=== PATIENT | female | born 1980 | race Caucasian/White ===

== ENCOUNTER 2016-07-01 16:08 | Emergency (ER) | payer OTHER ==
[~2016-07-01 16:08] MED LIST: AMIT75TA PO; ATIV1TAB2 OR; EFFE150C OR; LEVO88TA3 PO; OMEP40CA2 PO; RISP2TAB30 PO; SERO400T OR; SYNT50TA OR; VALI10TA PO; WELLTAB38 PO; ZIPR20CA13 PO; ZIPR80CAP OR
[2016-07-01 16:56] LABS: MEAN CORPUSCULAR HEMOGLOBIN 32.5 pg (27.0-33.0); MEAN CORPUSCULAR HGB CONC 35.7 g/dl (32.0-36.5); MEAN CORPUSCULAR VOLUME 91.1 fl (80.0-96.0); RED CELL DISTRIBUTION WIDTH 12.2 % (11.5-14.5); WHITE BLOOD COUNT 7.5 K/mm3 (4.0-10.0)
[2016-07-01 17:22] LABS: AMPHETAMINES LEVEL URINE NEGATIVE (NEGATIVE); BENZODIAZEPINES URINE NEGATIVE (NEGATIVE); COCAINE METABOLITE URINE NEGATIVE (NEGATIVE); CONTROL LINE INT CTR LINE PRESENT; METHADONE URINE NEGATIVE (NEGATIVE); OPIATES URINE NEGATIVE (NEGATIVE); TRICYCLIC ANTIDEPRESS URINE NEGATIVE (NEGATIVE)
[2016-07-01 17:29] LABS: ALBUMIN 4.3 GM/DL (3.2-5.2); ALBUMIN/GLOBULIN RATIO 1.48 (1.00-1.93); ALKALINE PHOSPHATASE 79 U/L (45-117); ALT/SGPT 27 U/L (12-78); ANION GAP 8 MEQ/L (8-16); AST/SGOT 14 U/L (15-37); BILIRUBIN,DIRECT 0.2 MG/DL (0.0-0.2); BILIRUBIN,TOTAL 0.5 MG/DL (0.2-1.0); BLOOD UREA NITROGEN 19 MG/DL (7-18); CALCIUM LEVEL 9.3 MG/DL (8.5-10.1); CARBON DIOXIDE LEVEL 30 MEQ/L (21-32); CHLORIDE LEVEL 106 MEQ/L (98-107); CREATININE FOR GFR 0.85 MG/DL (0.55-1.02); GLOMERULAR FILTRATION RATE > 60.0 (>60); GLUCOSE, FASTING 86 MG/DL (70-105); POTASSIUM SERUM 4.3 MEQ/L (3.5-5.1); SODIUM LEVEL 144 MEQ/L (136-145); TOTAL PROTEIN 7.2 GM/DL (6.4-8.2)
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
--- NOTE | 2016-07-01 18:46 | EDDOCDS ---
Physician Documentation [facility] Name: Lisa Sharp Age: 35 yrs Sex: Female : 1980 Arrival Date: 07/01/2016 Time: 16:08 Bed [facility] Private MD: Disposition: 07/01/16 18:24 Discharged to Home/Self Care. Impression: Bipolar disorder, current episode depressed, mild. - Condition is Stable. - Discharge Instructions: Bipolar Disorder. - Medication Reconciliation, Local Pharmacy Hours form. - Follow up: Private Physician; When: Call to arrange an appointment; Reason: Continuance of care. - Problem is new. - Symptoms have improved. Historical: - Allergies: no known allergies; - Home Meds: 1. Latuda 60 mg oral tab 1 tab once daily - PMHx: Bipolar disorder; - PSHx: Cholecystectomy; - Social history: Smoking status: Patient states was never smoker of tobacco. No barriers to communication noted, The patient speaks fluent Amharic. - Family history: No immediate family members are acutely ill. - : The pt / caregiver states he / she is not on anticoagulants. Home medication list is obtained from the patient. - Exposure Risk Screening:: None identified. PRIMARY CARE COORDINATOR: 07/01 16:29 LMP N/A - Irregular menses mb9 Vital Signs: 16:29 BP 119 / 69; Pulse 65; Resp 17; Temp 97.7; Pulse Ox 100% ; Weight 72.57 kg / 159.99 mb9 lbs; Height 5 ft. 5 in. (165.10 cm); 18:42 BP 120 / 69; Pulse 81; Resp 17; Temp 98.2; Pulse Ox 100% ; mb9 16:29 Body Mass Index 26.63 (72.57 kg, 165.10 cm) mb9 MDM: 16:14 Consult PFS/PSA/Product Development Consultant ordered. fg 16:14 Consult PFS/PSA/Product Development Consultant: Patient's case requires discussion with on-call fg Psychiatrist ordered. 16:14 PSA/PFS to call Nursing Behavioral Health Professional, to enter patient data on [place] Safe [place] if patient fg involuntarily admitted or transferred for SI or HI ordered. 16:14 Confirm accurate psychiatric medication list and times of last dosage ordered. fg 16:14 Detain Pt Until Medically/PFS Cleared ordered. fg 16:15 Acetaminophen Level Ordered. EDMS 16:15 Basic Metabolic Profile Ordered. EDMS 16:15 Complete Blood Count Ordered. EDMS 16:15 Drug Eval Toxicology ED Only Ordered. EDMS 16:15 Ethyl Alcohol (ethanol) Ordered. EDMS 16:15 Liver Profile Ordered. EDMS 16:15 Salicylate Level Ordered. EDMS 16:15 Thyroid Stimulating Hormone Ordered. EDMS 16:43 REGULAR DIET PLASTIC RAMIREZ+DIET ordered. EDMS 18:45 Financial registration complete. zo Signatures: Dispatcher [employer] EDMS Brian Beltran MichaelRN RN mb9 Fatuma Saucedo MD MD fg MTDD
[2016-07-02] MEDS ORDERED: LATU1TAB PO (14:48)
[2016-07-02] MEDS ORDERED: OXCA150T PO (14:48)
--- NOTE | 2016-07-03 19:46 | EDDOCDS ---
Physician Documentation [facility] Name: Lisa Sharp Age: 35 yrs Sex: Female : 1980 Arrival Date: 07/01/2016 Time: 16:08 Bed [facility] Private MD: Disposition: 07/01/16 18:24 Discharged to Home/Self Care. Impression: Bipolar disorder, current episode depressed, mild. - Condition is Stable. - Discharge Instructions: Bipolar Disorder. - Medication Reconciliation, Local Pharmacy Hours form. - Follow up: Private Physician; When: Call to arrange an appointment; Reason: Continuance of care. - Problem is new. - Symptoms have improved. Historical: - Allergies: no known allergies; - Home Meds: 1. Latuda 60 mg oral tab 1 tab once daily - PMHx: Bipolar disorder; - PSHx: Cholecystectomy; - Social history: Smoking status: Patient states was never smoker of tobacco. No barriers to communication noted, The patient speaks fluent Japanese. - Family history: No immediate family members are acutely ill. - : The pt / caregiver states he / she is not on anticoagulants. Home medication list is obtained from the patient. - Exposure Risk Screening:: None identified. CLOTH CLASSER: 07/01 16:29 LMP N/A - Irregular menses mb9 Vital Signs: 16:29 BP 119 / 69; Pulse 65; Resp 17; Temp 97.7; Pulse Ox 100% ; Weight 72.57 kg / 159.99 mb9 lbs; Height 5 ft. 5 in. (165.10 cm); 18:42 BP 120 / 69; Pulse 81; Resp 17; Temp 98.2; Pulse Ox 100% ; mb9 16:29 Body Mass Index 26.63 (72.57 kg, 165.10 cm) mb9 MDM: 16:14 Consult PFS/PSA/Lunchroom Mother ordered. fg 16:14 Consult PFS/PSA/Lunchroom Mother: Patient's case requires discussion with on-call fg Psychiatrist ordered. 16:14 PSA/PFS to call Nursing Shop Foreman, to enter patient data on [place] Safe Act if patient fg involuntarily admitted or transferred for SI or HI ordered. 16:14 Confirm accurate psychiatric medication list and times of last dosage ordered. fg 16:14 Detain Pt Until Medically/PFS Cleared ordered. fg 16:15 Acetaminophen Level Ordered. EDMS 16:15 Basic Metabolic Profile Ordered. EDMS 16:15 Complete Blood Count Ordered. EDMS 16:15 Drug Eval Toxicology ED Only Ordered. EDMS 16:15 Ethyl Alcohol (ethanol) Ordered. EDMS 16:15 Liver Profile Ordered. EDMS 16:15 Salicylate Level Ordered. EDMS 16:15 Thyroid Stimulating Hormone Ordered. EDMS 16:43 REGULAR DIET PLASTIC RAMIREZ+DIET ordered. EDMS 18:45 Financial registration complete. zo 18:49 [facility] Payment Agreement was scanned into [employer] and attached to record. zo 18:55 [facility] Legal paperwork was scanned into [employer] and attached to record. jl 07/02 10:10 T-Sheet-- Draft Copy was scanned into [employer] and attached to record. gb Signatures: Dispatcher [employer] EDMS Mando Cutler, PSA PSA Martina Khanna, Reg Reg gb Brian Beltran Michael,RN RN mb9 Fatuma Saucedo MD MD fg The chart was reviewed and I authenticate all verbal orders and agree with the evaluation and treatment provided.Attachments: 07/01 18:49 [facility] Payment Agreement zo 07/02 10:10 T-Sheet-- Draft Copy gb Chart Complete MTDD
--- NOTE | 2016-07-03 19:46 | EDDOCDS ---
Physician Documentation [facility] Name: Lisa Sharp Age: 35 yrs Sex: Female : 1980 Arrival Date: 07/01/2016 Time: 16:08 Bed [facility] Private MD: Disposition: 07/01/16 18:24 Discharged to Home/Self Care. Impression: Bipolar disorder, current episode depressed, mild. - Condition is Stable. - Discharge Instructions: Bipolar Disorder. - Medication Reconciliation, Local Pharmacy Hours form. - Follow up: Private Physician; When: Call to arrange an appointment; Reason: Continuance of care. - Problem is new. - Symptoms have improved. Historical: - Allergies: no known allergies; - Home Meds: 1. Latuda 60 mg oral tab 1 tab once daily - PMHx: Bipolar disorder; - PSHx: Cholecystectomy; - Social history: Smoking status: Patient states was never smoker of tobacco. No barriers to communication noted, The patient speaks fluent [place]. - Family history: No immediate family members are acutely ill. - : The pt / caregiver states he / she is not on anticoagulants. Home medication list is obtained from the patient. - Exposure Risk Screening:: None identified. ENVIRONMENTAL REMEDIATION CONSULTANT: 07/01 16:29 LMP N/A - Irregular menses mb9 Vital Signs: 16:29 BP 119 / 69; Pulse 65; Resp 17; Temp 97.7; Pulse Ox 100% ; Weight 72.57 kg / 159.99 mb9 lbs; Height 5 ft. 5 in. (165.10 cm); 18:42 BP 120 / 69; Pulse 81; Resp 17; Temp 98.2; Pulse Ox 100% ; mb9 16:29 Body Mass Index 26.63 (72.57 kg, 165.10 cm) mb9 MDM: 16:14 Consult PFS/PSA/Laborer Rags ordered. fg 16:14 Consult PFS/PSA/Laborer Rags: Patient's case requires discussion with on-call fg Psychiatrist ordered. 16:14 PSA/PFS to call Nursing Clock Mechanic, to enter patient data [place] Safe [place] if patient fg involuntarily admitted or transferred for SI or HI ordered. 16:14 Confirm accurate psychiatric medication list and times of last dosage ordered. fg 16:14 Detain Pt Until Medically/PFS Cleared ordered. fg 16:15 Acetaminophen Level Ordered. EDMS 16:15 Basic Metabolic Profile Ordered. EDMS 16:15 Complete Blood Count Ordered. EDMS 16:15 Drug Eval Toxicology ED Only Ordered. EDMS 16:15 Ethyl Alcohol (ethanol) Ordered. EDMS 16:15 Liver Profile Ordered. EDMS 16:15 Salicylate Level Ordered. EDMS 16:15 Thyroid Stimulating Hormone Ordered. EDMS 16:43 REGULAR DIET PLASTIC RAMIREZ+DIET ordered. EDMS 18:45 Financial registration complete. zo 18:49 [facility] Payment Agreement was scanned into [employer] and attached to record. zo 18:55 [facility] Legal paperwork was scanned into [employer] and attached to record. jl 07/02 10:10 T-Sheet-- Draft Copy was scanned into [employer] and attached to record. gb Signatures: Dispatcher [employer] EDMS Mando Cutler, PSA PSA Martina Khanna, Reg Reg gb Brian Beltran Michael,RN RN mb9 Fatuma Saucedo MD MD fg The chart was reviewed and I authenticate all verbal orders and agree with the evaluation and treatment provided.Attachments: 07/01 18:49 [facility] Payment Agreement zo 07/02 10:10 T-Sheet-- Draft Copy gb Chart Complete MTDD
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
== END 2016-07-01 18:45 | disposition home or self-care (01) ==
LOC: M ED 16:08
DX: F31.9 Bipolar disorder, unspecified (principal); F20.9 Schizophrenia, unspecified; Z79.899 Other long term (current) drug therapy; E03.9 Hypothyroidism, unspecified
CPT/HCPCS: 36415; 80048; 80076; 80306; 84443; 85027; 99284; G0480

== ENCOUNTER 2016-07-02 13:21 | Inpatient (IN) | payer OTHER ==
[~2016-07-02] VITALS: Ht 165.1 cm; Wt 72.6 kg
[2016-07-02 14:25] LABS: CONTROL LINE HCG INT CTR LINE PRESENT; MEAN CORPUSCULAR HEMOGLOBIN 31.7 pg (27.0-33.0); MEAN CORPUSCULAR HGB CONC 34.5 g/dl (32.0-36.5); RED CELL DISTRIBUTION WIDTH 12.2 % (11.5-14.5); WHITE BLOOD COUNT 6.1 K/mm3 (4.0-10.0)
[2016-07-02 14:34] LABS: CONTROL LINE INT CTR LINE PRESENT; METHADONE URINE NEGATIVE (NEGATIVE); TRICYCLIC ANTIDEPRESS URINE NEGATIVE (NEGATIVE)
[2016-07-02 14:39] LABS: ALBUMIN 4.7 GM/DL (3.2-5.2); ALBUMIN/GLOBULIN RATIO 1.38 (1.00-1.93); ALKALINE PHOSPHATASE 84 U/L (45-117); ALT/SGPT 28 U/L (12-78); ANION GAP 8 MEQ/L (8-16); AST/SGOT 18 U/L (15-37); BILIRUBIN,DIRECT 0.3 MG/DL (0.0-0.2); BILIRUBIN,TOTAL 1.2 MG/DL (0.2-1.0); BLOOD UREA NITROGEN 11 MG/DL (7-18); CARBON DIOXIDE LEVEL 28 MEQ/L (21-32); CHLORIDE LEVEL 106 MEQ/L (98-107); GLOMERULAR FILTRATION RATE > 60.0 (>60); GLUCOSE, FASTING 90 MG/DL (70-105); POTASSIUM SERUM 4.2 MEQ/L (3.5-5.1); SODIUM LEVEL 142 MEQ/L (136-145); TOTAL PROTEIN 8.1 GM/DL (6.4-8.2)
[2016-07-02] MEDS ORDERED: OXCA150T PO (14:48)
[2016-07-02] MEDS ORDERED: LATU1TAB PO (14:48)
[2016-07-02] MEDS ORDERED: LORazepam 1 MG TAB As Ordered ONE (16:35)
--- NOTE | 2016-07-02 17:28 | EDDOCDS ---
Physician Documentation [facility] Name: Lisa Sharp Age: 35 yrs Sex: Female : 1980 Arrival Date: 07/02/2016 Time: 13:21 Bed [facility]2 Private MD: Disposition: 07/02 15:34 Critical Care: Critical care not applicable. akash Disposition: 07/02/16 17:13 Hospitalization ordered by João Rivas for Inpatient Admission. Preliminary diagnosis is Bipolar disorder, current episode mixed, severe, with psychotic features. - Bed requested for Admit. - Status is Inpatient Admission. ld5 - Condition is Stable. - Problem is an acute exacerbation. - Symptoms are unchanged. Historical: - Allergies: no known allergies; - Home Meds: 1. Latuda 60 mg oral tab 1 tab once daily pt has not been taking his medications 2. Trileptal 150 mg oral tab 2 tabs 2 times per day pt has not been taking her meds 3. Levothyroxine Oral 80 mcg once daily has not been taking her meds - PMHx: Bipolar disorder; Depression; Hypothyroidism; - PSHx: Cholecystectomy; - Social history: Smoking status: Patient states was never smoker of tobacco. No barriers to communication noted, The patient speaks fluent Qatari, Speaks appropriately for age. - Family history: Not pertinent. - : The pt / caregiver states he / she is not on anticoagulants. Home medication list is obtained from the patient. - Exposure Risk Screening:: None identified. STICKER HAND: 17:08 LMP N/A - Irregular menses ld5 Vital Signs: 13:34 BP 134 / 92; Pulse 75; Resp 18; Temp 98.8(TE); Pulse Ox 96% on R/A; Weight 72.57 kg / dem1 159.99 lbs (R); Height 5 ft. 5 in. (165.10 cm) (R); Pain 0/10; 16:45 BP 145 / 88; Pulse 87; Resp 18; Temp 97(O); Pulse Ox 99% on R/A; ld5 13:34 Body Mass Index 26.63 (72.57 kg, 165.10 cm) dem1 MDM: 14:05 Consult PFS/PSA/Hand Candle Molder ordered. le 14:05 Consult PFS/PSA/Hand Candle Molder: Patient's case requires discussion with on-call le Psychiatrist ordered. 14:05 PSA/PFS to call Nursing Courtesy Driver, to enter patient data [place] Safe [place] if patient le involuntarily admitted or transferred for SI or HI ordered. 14:05 Confirm accurate psychiatric medication list and times of last dosage ordered. le 14:05 Detain Pt Until Medically/PFS Cleared ordered. le 14:06 Acetaminophen Level Ordered. EDMS 14:06 Basic Metabolic Profile Ordered. EDMS 14:06 Complete Blood Count Ordered. EDMS 14:06 Drug Eval Toxicology ED Only Ordered. EDMS 14:06 Ethyl Alcohol (ethanol) Ordered. EDMS 14:06 HCG,Serum Qualitative Ordered. EDMS 14:06 Liver Profile Ordered. EDMS 14:06 Salicylate Level Ordered. EDMS 14:06 Thyroid Stimulating Hormone Ordered. EDMS 14:06 BED REQUEST+ADM ordered. EDMS 15:32 Acetaminophen Level Reviewed. le 15:32 Liver Profile Reviewed. le 15:32 Salicylate Level Reviewed. le 15:32 Basic Metabolic Profile Reviewed. le 15:32 Complete Blood Count Reviewed. le 15:32 Drug Eval Toxicology ED Only Reviewed. le 15:32 Ethyl Alcohol (ethanol) Reviewed. le 15:32 HCG,Serum Qualitative Reviewed. le 15:32 Thyroid Stimulating Hormone Reviewed. le 15:34 The patient has been medically cleared for psychiatric evaluation, admission and/or le transfer. 16:26 LORazepam 2 mg PO once ordered. le 16:34 REGULAR DIET PLASTIC RAMIREZ+DIET ordered. EDMS 16:40 Admit to [facility]: ordered. EDMS 16:47 [facility] Legal paperwork was scanned into [employer] and attached to record. jl 16:53 [facility] Legal paperwork was scanned into [employer] and attached to record. jl 16:56 Consult PFS/PSA/Hand Candle Molder complete. jl 16:56 Consult PFS/PSA/Hand Candle Molder: Patient's case requires discussion with on-call jl Psychiatrist complete. 16:56 PSA/PFS to call Nursing Courtesy Driver, to enter patient data [place] if patient jl involuntarily admitted or transferred for SI or HI complete. Administered Medications: 17:06 Not Given (Pt declined): LORazepam 2 mg PO once ld5 Signatures: Dispatcher [employer] EDMS Mando Cutler, PSA PSA Kiana Schultz, WAY INSPECTOR WAY INSPECTOR Shelley Morrell RN RN ld5 Cao,Georgie,RN RN dsf MTDD
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
[2016-07-02] MEDS ORDERED: MAALOX 30 ML SUSP *UDC PO PRN (18:45)
[2016-07-02] MEDS ORDERED: ACETAMINOPHEN TAB 650MG DOSE (2X325MG) PO PRN (18:45)
[2016-07-02] MEDS ORDERED: MOM 30ML SUSPENSION UDC PO PRN (18:45)
[2016-07-02] MEDS: OXcarbazepine 150 MG TAB PO SCH (20:49)
[2016-07-02] MEDS ORDERED: LURASIDONE HCL 40 MG TAB (LATUDA) PO SCH (21:00)
[2016-07-02] MEDS ORDERED: QUEtiapine FUMARATE 100 MG TAB PO SCH (21:00)
[2016-07-03] MEDS ORDERED: LEVOTHYROXINE 0.088 MG TAB (88 MCG) PO SCH (06:00)
[2016-07-03] MEDS: OLANZapine ORAL DISINTEGRATING TAB 5MG PO PRN ×2 (06:06→06:13)
[2016-07-03] MEDS: LORazepam 2 MG TAB PO PRN ×2 (06:08→06:12)
[2016-07-03] MEDS: OXcarbazepine 150 MG TAB PO SCH (10:06)
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
[2016-07-03 12:01] LABS: FOLATE > 24.0 NG/ML; VITAMIN B12 LEVEL 570 PG/ML
[2016-07-03] MEDS ORDERED: risperiDONE 1 MG TAB PO ONE (13:00)
[2016-07-03] MEDS ORDERED: QUEtiapine FUMARATE 200 MG TAB PO ONE (15:30)
[2016-07-03] MEDS ORDERED: RISP1TAB3 PO (17:15)
[2016-07-03] MEDS ORDERED: RISP2TAB3 PO (17:15)
[2016-07-03] MEDS ORDERED: risperiDONE 2 MG TAB PO SCH (21:00)
[2016-07-03] MEDS ORDERED: OXcarbazepine 150 MG TAB PO SCH (21:00)
[2016-07-04] MEDS ORDERED: risperiDONE 1 MG TAB PO SCH (09:00)
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
--- NOTE | 2016-07-04 18:28 | EDDOCDS ---
Physician Documentation [facility] Name: Lisa Sharp Age: 35 yrs Sex: Female : 1980 Arrival Date: 07/02/2016 Time: 13:21 Bed U2 Private MD: Disposition: 07/02 15:34 Critical Care: Critical care not applicable. akash Disposition: 07/02/16 17:13 Hospitalization ordered by João Rivas for Inpatient Admission. Preliminary diagnosis is Bipolar disorder, current episode mixed, severe, with psychotic features. - Bed requested for Admit. - Status is Inpatient Admission. ld5 - Condition is Stable. - Problem is an acute exacerbation. - Symptoms are unchanged. Historical: - Allergies: no known allergies; - Home Meds: 1. Latuda 60 mg oral tab 1 tab once daily pt has not been taking his medications 2. Trileptal 150 mg oral tab 2 tabs 2 times per day pt has not been taking her meds 3. Levothyroxine Oral 80 mcg once daily has not been taking her meds - PMHx: Bipolar disorder; Depression; Hypothyroidism; - PSHx: Cholecystectomy; - Social history: Smoking status: Patient states was never smoker of tobacco. No barriers to communication noted, The patient speaks fluent [place] Citizen, Speaks appropriately for age. - Family history: Not pertinent. - : The pt / caregiver states he / she is not on anticoagulants. Home medication list is obtained from the patient. - Exposure Risk Screening:: None identified. OPERATING ROOM RN: 17:08 LMP N/A - Irregular menses ld5 Vital Signs: 13:34 BP 134 / 92; Pulse 75; Resp 18; Temp 98.8(TE); Pulse Ox 96% on R/A; Weight 72.57 kg / dem1 159.99 lbs (R); Height 5 ft. 5 in. (165.10 cm) (R); Pain 0/10; 16:45 BP 145 / 88; Pulse 87; Resp 18; Temp 97(O); Pulse Ox 99% on R/A; ld5 13:34 Body Mass Index 26.63 (72.57 kg, 165.10 cm) dem1 MDM: 14:05 Consult PFS/PSA/Branch Library Clerk ordered. le 14:05 Consult PFS/PSA/Branch Library Clerk: Patient's case requires discussion with on-call le Psychiatrist ordered. 14:05 PSA/PFS to call Nursing Research Physicist, to enter patient data [place] if patient le involuntarily admitted or transferred for SI or HI ordered. 14:05 Confirm accurate psychiatric medication list and times of last dosage ordered. le 14:05 Detain Pt Until Medically/PFS Cleared ordered. le 14:06 Acetaminophen Level Ordered. EDMS 14:06 Basic Metabolic Profile Ordered. EDMS 14:06 Complete Blood Count Ordered. EDMS 14:06 Drug Eval Toxicology ED Only Ordered. EDMS 14:06 Ethyl Alcohol (ethanol) Ordered. EDMS 14:06 HCG,Serum Qualitative Ordered. EDMS 14:06 Liver Profile Ordered. EDMS 14:06 Salicylate Level Ordered. EDMS 14:06 Thyroid Stimulating Hormone Ordered. EDMS 14:06 BED REQUEST+ADM ordered. EDMS 15:32 Acetaminophen Level Reviewed. le 15:32 Liver Profile Reviewed. le 15:32 Salicylate Level Reviewed. le 15:32 Basic Metabolic Profile Reviewed. le 15:32 Complete Blood Count Reviewed. le 15:32 Drug Eval Toxicology ED Only Reviewed. le 15:32 Ethyl Alcohol (ethanol) Reviewed. le 15:32 HCG,Serum Qualitative Reviewed. le 15:32 Thyroid Stimulating Hormone Reviewed. le 15:34 The patient has been medically cleared for psychiatric evaluation, admission and/or le transfer. 16:26 LORazepam 2 mg PO once ordered. le 16:34 REGULAR DIET PLASTIC RAMIREZ+DIET ordered. EDMS 16:40 Admit to [facility]: ordered. EDMS 16:47 MHE Legal paperwork was scanned into [employer] and attached to record. jl 16:53 MHE Legal paperwork was scanned into [employer] and attached to record. jl 16:56 Consult PFS/PSA/Branch Library Clerk complete. jl 16:56 Consult PFS/PSA/Branch Library Clerk: Patient's case requires discussion with on-call jl Psychiatrist complete. 16:56 PSA/PFS to call Nursing Research Physicist, to [place] if patient jl involuntarily admitted or transferred for SI or HI complete. 07/03 09:11 T-Sheet-- Draft Copy was scanned into [employer] and attached to record. gb Administered Medications: 07/02 17:06 Not Given (Pt declined): LORazepam 2 mg PO once ld5 Signatures: Dispatcher [employer] EDAK Mando Cutler PSA PSA Martina Khanna, Reg Reg gb Kiana Dotson, DIRECTOR ORACLE RETAIL DIRECTOR ORACLE RETAIL Shelley Morerll,RN RN ld5 Georgie CaoRN RN dsf The chart was reviewed and I authenticate all verbal orders and agree with the evaluation and treatment provided.Attachments: 07/03 09:11 T-Sheet-- Draft Copy gb Chart Complete MTDD
--- NOTE | 2016-07-04 18:28 | EDDOCDS ---
Physician Documentation [facility] Name: Lisa Sharp Age: 35 yrs Sex: Female : 1980 Arrival Date: 07/02/2016 Time: 13:21 Bed U2 Private MD: Disposition: 07/02 15:34 Critical Care: Critical care not applicable. akash Disposition: 07/02/16 17:13 Hospitalization ordered by João Rivas for Inpatient Admission. Preliminary diagnosis is Bipolar disorder, current episode mixed, severe, with psychotic features. - Bed requested for Admit. - Status is Inpatient Admission. ld5 - Condition is Stable. - Problem is an acute exacerbation. - Symptoms are unchanged. Historical: - Allergies: no known allergies; - Home Meds: 1. Latuda 60 mg oral tab 1 tab once daily pt has not been taking his medications 2. Trileptal 150 mg oral tab 2 tabs 2 times per day pt has not been taking her meds 3. Levothyroxine Oral 80 mcg once daily has not been taking her meds - PMHx: Bipolar disorder; Depression; Hypothyroidism; - PSHx: Cholecystectomy; - Social history: Smoking status: Patient states was never smoker of tobacco. No barriers to communication noted, The patient speaks fluent Bulgarian, Speaks appropriately for age. - Family history: Not pertinent. - : The pt / caregiver states he / she is not on anticoagulants. Home medication list is obtained from the patient. - Exposure Risk Screening:: None identified. SUPPLY CHAIN ASSOCIATE: 17:08 LMP N/A - Irregular menses ld5 Vital Signs: 13:34 BP 134 / 92; Pulse 75; Resp 18; Temp 98.8(TE); Pulse Ox 96% on R/A; Weight 72.57 kg / dem1 159.99 lbs (R); Height 5 ft. 5 in. (165.10 cm) (R); Pain 0/10; 16:45 BP 145 / 88; Pulse 87; Resp 18; Temp 97(O); Pulse Ox 99% on R/A; ld5 13:34 Body Mass Index 26.63 (72.57 kg, 165.10 cm) dem1 MDM: 14:05 Consult PFS/PSA/Vegetable Tier ordered. le 14:05 Consult PFS/PSA/Vegetable Tier: Patient's case requires discussion with on-call le Psychiatrist ordered. 14:05 PSA/PFS to call Nursing Waiter/Waitress Formal, to enter [place] if patient le involuntarily admitted or transferred for SI or HI ordered. 14:05 Confirm accurate psychiatric medication list and times of last dosage ordered. le 14:05 Detain Pt Until Medically/PFS Cleared ordered. le 14:06 Acetaminophen Level Ordered. EDMS 14:06 Basic Metabolic Profile Ordered. EDMS 14:06 Complete Blood Count Ordered. EDMS 14:06 Drug Eval Toxicology ED Only Ordered. EDMS 14:06 Ethyl Alcohol (ethanol) Ordered. EDMS 14:06 HCG,Serum Qualitative Ordered. EDMS 14:06 Liver Profile Ordered. EDMS 14:06 Salicylate Level Ordered. EDMS 14:06 Thyroid Stimulating Hormone Ordered. EDMS 14:06 BED REQUEST+ADM ordered. EDMS 15:32 Acetaminophen Level Reviewed. le 15:32 Liver Profile Reviewed. le 15:32 Salicylate Level Reviewed. le 15:32 Basic Metabolic Profile Reviewed. le 15:32 Complete Blood Count Reviewed. le 15:32 Drug Eval Toxicology ED Only Reviewed. le 15:32 Ethyl Alcohol (ethanol) Reviewed. le 15:32 HCG,Serum Qualitative Reviewed. le 15:32 Thyroid Stimulating Hormone Reviewed. le 15:34 The patient has been medically cleared for psychiatric evaluation, admission and/or le transfer. 16:26 LORazepam 2 mg PO once ordered. le 16:34 REGULAR DIET PLASTIC RAMIREZ+DIET ordered. EDMS 16:40 Admit to [facility]: ordered. EDMS 16:47 MHE Legal paperwork was scanned into [employer] and attached to record. jl 16:53 MHE Legal paperwork was scanned into [employer] and attached to record. jl 16:56 Consult PFS/PSA/Vegetable Tier complete. jl 16:56 Consult PFS/PSA/Vegetable Tier: Patient's case requires discussion with on-call jl Psychiatrist complete. 16:56 PSA/PFS to call Nursing Waiter/Waitress Formal, to enter [place] if patient jl involuntarily admitted or transferred for SI or HI complete. 07/03 09:11 T-Sheet-- Draft Copy was scanned into [employer] and attached to record. gb Administered Medications: 07/02 17:06 Not Given (Pt declined): LORazepam 2 mg PO once ld5 Signatures: Dispatcher [employer] EDMT Mando Cutler PSA PSA Martina Khanna, Reg Reg gb Kiana Dotson, LUNCHROOM OPERATOR LUNCHROOM OPERATOR Shelley Morrell,RN RN ld5 Georgie CaoRN RN dsf The chart was reviewed and I authenticate all verbal orders and agree with the evaluation and treatment provided.Attachments: 07/03 09:11 T-Sheet-- Draft Copy gb Chart Complete MTDD
--- NOTE | 2016-07-06 00:13 | HPEPDOC ---
[facility] History & Physical History and Physical DATE OF ADMISSION: Jul 02, 2016 at 17:30 Date of this interview: 07/03/2016 HISTORY OF PRESENT ILLNESS: This is a 35-year-old female admitted to [facility] on 07/02/2016 for psychotic symptoms including paranoia and disorganized thinking and auditory hallucinations. Patient is also manic reporting poor sleep approximately one week prior to admission. The night of admission patient slept 0 hours. The following day 07/03/2016 patient was given a 1 time dose of Seroquel 200 mg for agitation and to help her get sleep. Approximately 20 minute after being administered the dose patient due to her confusion and agitation began pacing the hallways. Patient experienced a syncopal event. To her fall patient lacerating her chin. She was alert and oriented 3 after the fall but was discharged from the psychiatric unit and transferred to [facility] medical floor for evaluation of syncopal event. CT head , troponins, EKG, all evaluations were negative. On the medical floor patient continues to voice paranoid ideations, and continues to be significantly agitated. On 07/05/2016 patient was deemed medically stable by the medical team. Patient transferred [facility] to [facility] and resumed on Trileptal and Risperdal for treatment of kayli and paranoid symptoms. Symptoms of kayli are significantly reduced yet paranoid ideations persist insomnia persists and patient remains significantly anxious. She denies suicidal and homicidal ideations she denies auditory and visual hallucinations. On admission patient reported auditory hallucinations of a male voice which he interpreted as having telepathy. ALLERGIES: Please see below. HOME MEDICATIONS: Please see below. PAST MEDICAL HISTORY: 1. Bipolar 1 disorder FAMILY HISTORY: maternal family hx of Bipolar d/o SOCIAL HISTORY: Marital status and/or living arrangements: from her Children: children currently in custody of her Employment: unemployed LABORATORY DATA: Please see below. Vital signs: Temperature [97.4], pulse [72], respiratory rate [16], blood pressure [97/58] MENTAL STATUS EXAMINATION: Patient is a 35-year old female, who is thin, looks stated age, calm and cooperative]. Speech: Is [regular rate and rhythm, spontaneous]. Thought processes: [Goal-directed, circumstantial at times] Rate of thoughts: [Appropriate]. Thought content: Ongoing paranoid ideations regarding safety of her children. Associations: [Circumstantial ]. Abnormal or psychotic thoughts: [consumed with paranoid ideations] Judgment: [Poor.] Insight: [Poor] Oriented to: [Time, place and person.] Recent and Remote Memory: [Immediate, short-term and long-term memory is intact] . Attention Span and Concentration: [Poor, Good, Fair]. Language: [Normal]. Fund of knowledge: [Good]. Mood: [Anxious, Restricted]. Affect: [Constricted ]. ASSESSMENT: Bipolar 1 disorder MRE manic w/ PFs. PLAN OF CARE: -Continue Trileptal 150 mg by mouth twice a day for mood stabilization. -Continue Risperdal at 1 mg by mouth twice a day for psychosis. Medications Scheduled Levothyroxine Sodium (Synthroid) 88 Mcg Tab 88 MCG PO DAILY hypothyroid ( Reported) Oxcarbazepine (Oxcarbazepine) 150 Mg Tab 150 MG PO BID BACK PAIN (Reported) Allergies Coded Allergies: Prednisone (Verified Allergy, Severe, TACHY/DIZZY, 09/12/12) Penicillins (Verified Allergy, Intermediate, RASH/HIVES, 09/12/12) Penicillins Cross Reactors (Verified Allergy, Intermediate, RASH/HIVES, 09/12/12) Quetiapine (Unverified Adverse Reaction, Intermediate, syncope, 07/27/16) Sertraline (Verified Adverse Reaction, Intermediate, AGITATION, 09/12/12) ELANA BIRMINGHAM MD Jul 06, 2016 00:13 ELANA BIRMINGHAM MD Jul 06, 2016 00:13
--- NOTE | 2016-07-06 00:21 | DS.PDOC ---
[facility] Discharge Summary Discharge Summary DATE OF ADMISSION: Jul 02, 2016 at 17:30 DATE OF DISCHARGE: Jul 03, 2016 at 16:00 Date of this interview: 07/03/2016 HISTORY: [HISTORY OF PRESENT ILLNESS: This is a 35-year-old female admitted to [facility] on 07/02/2016 for psychotic symptoms including paranoia and disorganized thinking and auditory hallucinations. Patient is also manic reporting poor sleep approximately one week prior to admission. The night of admission patient slept 0 hours. The following day 07/03/2016 patient was given a 1 time dose of Seroquel 200 mg for agitation and to help her get sleep. Approximately 20 minute after being administered the dose patient due to her confusion and agitation began pacing the hallways. Patient experienced a syncopal event. To her fall patient lacerating her chin. She was alert and oriented 3 after the fall but was discharged from the psychiatric unit and transferred to [facility] medical floor for evaluation of syncopal event. CT head , troponins, EKG, all evaluations were negative. On the medical floor patient continues to voice paranoid ideations, and continues to be significantly agitated. HOSPITALIZATION COURSE: [Patient presented only yesterday to the [facility]. She has not slept and has been med non-compliant. Of note, patient has also not eaten in >2 days per her report as she is on a fast. Will monitor. Patient given Seroquel 200mg x1 in attempt to break akyli and get patient sleep. She experienced a syncopal event, fell and suffered trauma to her head. Will discharge patient to medical floor for eval/treatment of syncope and trauma to the head. LABORATORY DATA: Please see below. Vital signs: Please see below. MENTAL STATUS EXAMINATION on Discharge: Patient is a 35-year old female, who is thin, looks stated age]. Speech: Is [regular rate and rhythm, spontaneous]. Thought processes: [Goal-directed, circumstantial at times] Rate of thoughts: [Appropriate]. Thought content: Ongoing paranoid ideations regarding safety of her children. Associations: [Circumstantial ]. Abnormal or psychotic thoughts: [consumed with paranoid ideations] Judgment: [Poor.] Insight: [Poor] Oriented to: [Time, place and person.] Recent and Remote Memory: [Immediate, short-term and long-term memory is intact] . Attention Span and Concentration: [Fair]. Language: [Normal]. Fund of knowledge: [Good]. Mood: [Anxious, Restricted]. Affect: [Constricted ]. Diagnosis at Discharge: Bipolar 1 disorder MRE manic w/ PFs. PLAN OF CARE: -Transfer to Medical floor to eval fall with trauma to head and syncopal episode etiology. -Continue Trileptal 150 mg by mouth twice a day for mood stabilization. -Continue Risperdal at 1 mg by mouth twice a day for psychosis. Plan of care / followup: patient to be transferred back to the [facility] once medically cleared. Medications Scheduled Levothyroxine Sodium (Synthroid) 88 Mcg Tab 88 MCG PO DAILY hypothyroid ( Reported) Oxcarbazepine (Oxcarbazepine) 150 Mg Tab 150 MG PO BID BACK PAIN (Reported) Allergies Coded Allergies: Prednisone (Verified Allergy, Severe, TACHY/DIZZY, 09/12/12) Penicillins (Verified Allergy, Intermediate, RASH/HIVES, 09/12/12) Penicillins Cross Reactors (Verified Allergy, Intermediate, RASH/HIVES, 09/12/12) Quetiapine (Unverified Adverse Reaction, Intermediate, syncope, 07/27/16) Sertraline (Verified Adverse Reaction, Intermediate, AGITATION, 09/12/12) ELANA BIRMINGHAM MD Jul 06, 2016 00:21
== END 2016-07-03 16:00 | disposition short-term general hospital (02) | DRG 885 ==
LOC: M ED 13:21 → M PSY 17:30
PROVIDERS: ADMIT Psychiatry & Neurology Psychiatry; ATTEND Psychiatry & Neurology Psychiatry
DX: F31.2 Bipolar disorder, current episode manic severe with psychotic features (principal); R55 Syncope and collapse; S01.81XA Laceration without foreign body of other part of head, initial encounter; W22.8XXA Striking against or struck by other objects, initial encounter; Y92.239 Unspecified place in hospital as the place of occurrence of the external cause; Z79.899 Other long term (current) drug therapy; Z88.0 Allergy status to penicillin; Z88.8 Allergy status to other drugs, medicaments and biological substances

== ENCOUNTER 2016-07-03 16:42 | Inpatient (IN) | payer OTHER ==
[~2016-07-03] VITALS: Ht 165.1 cm; Wt 72.0 kg
[2016-07-03 16:26] VITALS: BP 97/65
[~2016-07-03 16:42] MED LIST changes: +LATU1TAB PO; +OXCA150T PO
[2016-07-03] MEDS ORDERED: ONDANSETRON 4MG/2ML VIAL (J2405) IV PRN (17:00)
[2016-07-03] MEDS ORDERED: PERCOCET 5MG/325MG TAB PO PRN (17:00)
[2016-07-03] MEDS ORDERED: ACETAMINOPHEN TAB 650MG DOSE (2X325MG) PO PRN (17:00)
[2016-07-03] MEDS ORDERED: RISP1TAB3 PO (17:15)
[2016-07-03] MEDS ORDERED: RISP2TAB3 PO (17:15)
[2016-07-03 17:29] LABS: MEAN CORPUSCULAR HEMOGLOBIN 32.1 pg (27.0-33.0); MEAN CORPUSCULAR HGB CONC 35.6 g/dl (32.0-36.5); MEAN CORPUSCULAR VOLUME 90.3 fl (80.0-96.0); RED CELL DISTRIBUTION WIDTH 12.2 % (11.5-14.5); WHITE BLOOD COUNT 6.9 K/mm3 (4.0-10.0)
[2016-07-03 18:01] LABS: ALBUMIN 4.2 GM/DL (3.2-5.2); ALBUMIN/GLOBULIN RATIO 1.62 (1.00-1.93); ALKALINE PHOSPHATASE 77 U/L (45-117); ALT/SGPT 27 U/L (12-78); ANION GAP 11 MEQ/L (8-16); AST/SGOT 19 U/L (15-37); BILIRUBIN,TOTAL 1.3 MG/DL (0.2-1.0); BLOOD UREA NITROGEN 11 MG/DL (7-18); CALCIUM LEVEL 8.8 MG/DL (8.5-10.1); CARBON DIOXIDE LEVEL 27 MEQ/L (21-32); CHLORIDE LEVEL 105 MEQ/L (98-107); CREATININE FOR GFR 0.82 MG/DL (0.55-1.02); GLOMERULAR FILTRATION RATE > 60.0 (>60); GLUCOSE, FASTING 88 MG/DL (70-105); POTASSIUM SERUM 3.7 MEQ/L (3.5-5.1); SODIUM LEVEL 143 MEQ/L (136-145); TOTAL PROTEIN 6.8 GM/DL (6.4-8.2)
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
[2016-07-03 18:10] LABS: PROLACTIN 55.6 NG/ML
--- NOTE | 2016-07-03 19:15 | REP ---
PA and lateral chest: Comparison is 04/06/2011. The lung [place]ak are clear. The cardiac size is normal The zachariah, mediastinum, and bony thorax are unremarkable. Impression: Negative PA and lateral chest. There is no interval change. Signed by Agapito Flores MD 07/03/2016 07:07 P
--- NOTE | 2016-07-03 19:40 | REPUSA ---
CLINICAL HISTORY: Syncope. TECHNIQUE: Multiple axial brain CT scan sections were obtained from base to vertex without contrast a dministration. COMMENTS: The study shows normal configuration of sella turcica. There are no intra or extra-axial collections. There is no mass effect or midline shift. There is no evidence of hematoma formation. No hydrocephal us is present. No abnormal calcifications are noted. No significant abnormalities are seen either in the posterior fossa or supratentorial compartment. The sinuses and mastoid air cells are patent. IMPRESSION: No evidence of acute intracranial pathology. Thank you for your kind referral of this patient.
[2016-07-03 20:00] VITALS: BP 117/62
[2016-07-03] MEDS: OXcarbazepine 150 MG TAB PO SCH (22:18)
[2016-07-03] MEDS: NS 1,000 ML IV SCH (22:19)
[2016-07-03] MEDS: LORazepam 1 MG TAB PO PRN (22:56)
[2016-07-03 23:59] VITALS: BP 108/61
[2016-07-04] VITALS (9 sets, daily range): BP systolic 98–120; BP diastolic 55–76
[2016-07-04 05:06] LABS: MEAN CORPUSCULAR HEMOGLOBIN 32.6 pg (27.0-33.0); MEAN CORPUSCULAR HGB CONC 35.6 g/dl (32.0-36.5); MEAN CORPUSCULAR VOLUME 91.8 fl (80.0-96.0); RED CELL DISTRIBUTION WIDTH 12.4 % (11.5-14.5); WHITE BLOOD COUNT 7.6 K/mm3 (4.0-10.0)
[2016-07-04 05:20] LABS: ANION GAP 9 MEQ/L (8-16); BLOOD UREA NITROGEN 13 MG/DL (7-18); CALCIUM LEVEL 8.5 MG/DL (8.5-10.1); CARBON DIOXIDE LEVEL 26 MEQ/L (21-32); CHLORIDE LEVEL 108 MEQ/L (98-107); CREATININE FOR GFR 0.73 MG/DL (0.55-1.02); GLOMERULAR FILTRATION RATE > 60.0 (>60); GLUCOSE, FASTING 87 MG/DL (70-105); POTASSIUM SERUM 3.5 MEQ/L (3.5-5.1); SODIUM LEVEL 143 MEQ/L (136-145)
[2016-07-04] MEDS: LEVOTHYROXINE 0.088 MG TAB (88 MCG) PO SCH (05:51)
[2016-07-04] MEDS: OXcarbazepine 150 MG TAB PO SCH ×2 (08:51→20:15)
[2016-07-04] MEDS: LORazepam 1 MG TAB PO PRN ×2 (08:51→15:27)
--- NOTE | 2016-07-04 15:08 | IPNPDOC ---
Assessment/Plan Date Seen The patient was seen on 07/04/16. Plan / VTE VTE Prophylaxis Ordered?: Yes Plan Plan Text Syncopal episode Likely related to Seroquel dose in combination with Risperdal administered in the psych unit Patient did report "sleepy" and "drowsy" after receiving the medications 30 minutes prior to her event. Patient has not had any events on the quality assurance monitor chassis here EKG with no acute findings, QTC within normal limits Thus far no infectious etiology noted Lab values within normal limits We will withhold any kind of sedative medication here Continue to monitor the patient's progress History of hypothyroidism TSH levels noted to be within normal limits on 07/02/16 Continue levothyroxine History of seizures Continue Trileptal DVT prophylaxis Lovenox subcutaneously Disposition-anticipate discharge back to the inpatient mental health unit for psychiatric stabilization in the next 24 hours if the patient remains clinically stable. Subjective Review of Systems CC/HPI The patient is a 35-year-old female admitted with a reason for visit of Syncope. General: Denies: Chills, Night Sweats Constitutional: Denies: Chills, Fever Eyes: Denies: Pain, Vision change ENT: Denies: Ear Pain, Head Aches Skin: Denies: Lesions, Rash Pulmonary: Denies: Cough, Dyspnea Cardiovascular: Denies: Chest Pain, Orthopnea, Palpitations Gastrointestinal: Denies: Nausea, Vomiting Genitourinary: Denies: Dysuria, Frequency Hematologic: Denies: Bleeding Excessively, Bruising Musculoskeletal: Denies: Back Pain, Neck Pain Objective Physical Examination General Exam: Positive: Alert, Cooperative, No Acute Distress ENT Exam: Positive: Atraumatic, Mucous membr. moist/pink Chest Exam: Positive: Clear to auscultation, Normal air movement Heart Exam: Positive: Normal S1, Normal S2, Rate Normal Telemetry: Positive: Sinus Abdomen Exam: Positive: Soft, Negative: Tenderness Extremity Exam: Negative: Edema, Tenderness Vital Signs/I&O Vital Signs Date Time Temp Pulse Resp B/P Pulse Ox O2 Delivery O2 Flow Rate FiO2 07/04/16 12:04 94 118/71 07/04/16 12:00 98.1 18 98 Room Air I&O- Last 24 Hours up to 6 AM 07/04/16 06:00 Intake Total 880 ml Output Total 400 ml Balance 480 ml Laboratory Data Labs 24H Laboratory Tests 2 07/03/16 17:15: Blood Urea Nitrogen 11, Creatinine 0.82, Sodium Level 143, Potassium Level 3.7, Chloride Level 105, Carbon Dioxide Level 27, Calcium Level 8.8, Aspartate Amino Transf (AST/SGOT) 19, Alanine Aminotransferase (ALT/SGPT) 27, Alkaline Phosphatase 77, Total Bilirubin 1.3H, Total Protein 6.8, Albumin 4.2, Albumin/ Globulin Ratio 1.62, Anion Gap 11, C-Reactive Protein, Quantitative < 0.30, Erythrocyte Sedimentation Rate 7, Glomerular Filtration Rate > 60.0, Magnesium Level 2.1, Prolactin 55.6 07/04/16 04:47: Blood Urea Nitrogen 13, Creatinine 0.73, Sodium Level 143, Potassium Level 3.5, Chloride Level 108H, Carbon Dioxide Level 26, Calcium Level 8.5, Anion Gap 9, Glomerular Filtration Rate > 60.0 CBC/BMP Laboratory Tests 07/03/16 17:15 Calcium Level 8.8, Aspartate Amino Transf (AST/SGOT) 19, Alanine Aminotransferase (ALT/SGPT) 27, Alkaline Phosphatase 77, Total Bilirubin 1.3 H, Total Protein 6.8, Albumin 4.2, Red Blood Count 4.31, Mean Corpuscular Volume 90.3, Mean Corpuscular Hemoglobin 32.1, Mean Corpuscular Hemoglobin Concent 35.6 , Red Cell Distribution Width 12.2 07/04/16 04:47 Calcium Level 8.5, Red Blood Count 4.01, Mean Corpuscular Volume 91.8, Mean Corpuscular Hemoglobin 32.6, Mean Corpuscular Hemoglobin Concent 35.6, Red Cell Distribution Width 12.4 NAIDA CHERY MD Jul 04, 2016 15:08
[2016-07-04] MEDS: ENOXAPARIN 40 MG/0.4 ML SYRINGE (J1650) SC SCH (15:27)
[2016-07-04] MEDS: NS 1,000 ML IV SCH (15:31)
--- NOTE | 2016-07-05 00:48 | ECGEPIP ---
Stationary ECG Study [facility] Test Date: 2016-07-03 Pat Name: RAYRAY RAIN Department: Room: [place] [address] Gender: F Public Welfare Worker: KANDACE : 1980 Requested By: JON SHIRLEY Order Number: [id number] Reading MD: Solis Zarate Measurements Intervals [place] Rate: 64 P: 53 OR: 160 QRS: 77 QRSD: 86 T: 46 QT: 409 QTc: 424 Interpretive Statements SINUS RHYTHM WITH OCCASIONAL SUPRAVENTRICULAR PREMATURE COMPLEXES AND SINUS ARRHYTHMIA NONSPECIFIC T-WAVE ABNORMALITY LAST TRACING ON 06/09/2014 AT 17:23:02. HEART RATE IS NOW SLOWER Electronically Signed On 07-05-2016 0:48:07 EST by Solis Zarate
[2016-07-05 04:00] VITALS: BP 112/69
[2016-07-05] MEDS: LORazepam 1 MG TAB PO PRN ×2 (04:55→09:57)
[2016-07-05] MEDS: LEVOTHYROXINE 0.088 MG TAB (88 MCG) PO SCH (04:55)
[2016-07-05 05:32] LABS: MEAN CORPUSCULAR HEMOGLOBIN 31.2 pg (27.0-33.0); MEAN CORPUSCULAR HGB CONC 33.9 g/dl (32.0-36.5); RED CELL DISTRIBUTION WIDTH 13.2 % (11.5-14.5); WHITE BLOOD COUNT 6.4 K/mm3 (4.0-10.0)
[2016-07-05 05:56] LABS: ANION GAP 8 MEQ/L (8-16); BLOOD UREA NITROGEN 11 MG/DL (7-18); CALCIUM LEVEL 8.8 MG/DL (8.5-10.1); CARBON DIOXIDE LEVEL 27 MEQ/L (21-32); CHLORIDE LEVEL 105 MEQ/L (98-107); CREATININE FOR GFR 0.79 MG/DL (0.55-1.02); GLOMERULAR FILTRATION RATE > 60.0 (>60); GLUCOSE, FASTING 85 MG/DL (70-105); POTASSIUM SERUM 3.5 MEQ/L (3.5-5.1); SODIUM LEVEL 140 MEQ/L (136-145)
[2016-07-05 08:00] VITALS: BP 112/59
[2016-07-05] MEDS: ENOXAPARIN 40 MG/0.4 ML SYRINGE (J1650) SC SCH (09:00)
[2016-07-05] MEDS: OXcarbazepine 150 MG TAB PO SCH (09:16)
[2016-07-05] MEDS: NS 1,000 ML IV SCH (09:57)
--- NOTE | 2016-07-05 11:45 | DS.PDOC ---
Discharge Summary General Date of Admission Jul 03, 2016 at 16:42 Date of Properties Supervisor/Consultants Involve Dr. Henry of psychiatry Discharge Summary PROCEDURES PERFORMED DURING STAY: None. COMPLICATIONS/CHIEF COMPLAINT: Syncope ADMISSION DIAGNOSES: 1. . Syncopal episode 2. . 3. . DISCHARGE DIAGNOSES: 1. . Syncopal episode likely secondary to medication effect 2. . 3. . HISTORY OF PRESENT ILLNESS: 35-year-old female with no significant medical history, but a psychiatric history significant for bipolar disorder with psychotic features and PTSD was transferred over from the inpatient mental health unit after she was noted to be walking the halls and reportedly collapsed and hit the ground landing directly on her chin. Apparently, the patient was receiving 1 mg of Risperdal in the morning 2 mg at night, and Seroquel 200 mg was just added to her regimen. The patient had taken the Seroquel 30 minutes prior to her fall. Upon evaluation, the patient was noted to be awake, alert, and oriented immediately after the fall. The patient denied any symptoms of chest pain, palpitations, shortness of breath, abdominal pain, or any nausea/vomiting/diarrhea. However, given the syncopal episode the patient was admitted to the medical floor for further evaluation of syncope and collapse. A CT scan of the head was noted to be negative for any acute findings. During the patient's stay here in the hospital she has been monitored on telemetry and she has not had any notable events. Her EKG was noted to be within normal limits. Her Seroquel medication has been discontinued, as it is believed that her syncopal event was related to her feeling "groggy" and "drowsy" after taking the medication. In addition, the patient has been noted to be walking the corridors on the medical floor and denies any complaints of near syncopal episodes or any dizziness. At this time, the patient is asking when she will be transferred back to the inpatient mental health unit. I have spoken to Dr. Henry of psychiatry, and we will ask for him to evaluate the patient for readmission back into the inpatient mental health unit for psychiatric stabilization. DISCHARGE MEDICATIONS: Please see below. ALLERGIES: Please see below. PHYSICAL EXAMINATION ON DISCHARGE: VITAL SIGNS: Please see below. General Exam: Positive: Alert, Cooperative, No Acute Distress ENT Exam: Positive: Atraumatic, Mucous membr. moist/pink Chest Exam: Positive: Clear to auscultation, Normal air movement Heart Exam: Positive: Normal S1, Normal S2, Rate Normal Telemetry: Positive: Sinus Abdomen Exam: Positive: Soft, Negative: Tenderness Extremity Exam: Negative: Edema, Tenderness LABORATORY DATA: Please see below. IMAGING: CLINICAL HISTORY: Syncope. TECHNIQUE: Multiple axial brain CT scan sections were obtained from base to vertex without contrast administration. COMMENTS: The study shows normal configuration of sella turcica. There are no intra or extra-axial collections. There is no mass effect or midline shift. There is no evidence of hematoma formation. No hydrocephalus is present. No abnormal calcifications are noted. No significant abnormalities are seen either in the posterior fossa or supratentorial compartment. The sinuses and mastoid air cells are patent. IMPRESSION: No evidence of acute intracranial pathology. Thank you for your kind referral of this patient. VTE Prophylaxis ordered?: DISCHARGE CONDITION: Medically stable DISPOSITION: For transfer back to the inpatient mental health unit for psychiatric stabilization ACTIVITY: As tolerated DIET: Regular diet DISCHARGE PLAN AND INSTRUCTIONS: 1. . To be transferred to the inpatient mental health unit for psychiatric stabilization TIME SPENT ON DISCHARGE: Greater than 30 minutes. Vital Signs/I&Os Vital Signs Date Time Temp Pulse Resp B/P Pulse Ox O2 Delivery O2 Flow Rate FiO2 07/05/16 08:00 97.6 73 18 112/59 100 Room Air I&O- Last 24 Hours up to 6 AM 07/05/16 06:00 Intake Total 2480 ml Output Total 2800 ml Balance -320 ml Laboratory Data Labs 24H Laboratory Tests 2 07/05/16 05:00: Anion Gap 8, Blood Urea Nitrogen 11, Creatinine 0.79, Sodium Level 140, Potassium Level 3.5, Chloride Level 105, Carbon Dioxide Level 27, Calcium Level 8.8, Glomerular Filtration Rate > 60.0 CBC/BMP Laboratory Tests 07/05/16 05:00 Calcium Level 8.8, Red Blood Count 4.29, Mean Corpuscular Volume 92.0, Mean Corpuscular Hemoglobin 31.2, Mean Corpuscular Hemoglobin Concent 33.9, Red Cell Distribution Width 13.2 Medications Scheduled Levothyroxine Sodium (Synthroid) 88 Mcg Tab 88 MCG PO DAILY hypothyroid Oxcarbazepine (Oxcarbazepine) 150 Mg Tab 150 MG PO BID BACK PAIN Allergies Coded Allergies: Prednisone (Verified Allergy, Severe, TACHY/DIZZY, 09/12/12) Penicillins (Verified Allergy, Intermediate, RASH/HIVES, 09/12/12) Penicillins Cross Reactors (Verified Allergy, Intermediate, RASH/HIVES, 09/12/12) Sertraline (Verified Adverse Reaction, Intermediate, AGITATION, 09/12/12) NAIDA CHERY MD Jul 05, 2016 11:45
--- NOTE | 2016-07-06 00:15 | DS.PDOC ---
[facility] Discharge Summary Discharge Summary DATE OF ADMISSION: Jul 03, 2016 at 16:42 DATE OF DISCHARGE: Jul 03, 2016 at 11:51 Date of this interview: 07/03/2016 HISTORY: HOSPITALIZATION COURSE: TREATMENT AND PROGRESS ON THE UNIT: . MENTAL STATUS EXAMINATION ON DISCHARGE: Patient is a -year old female, who is [pleasant, cooperative, well kempt], [tall , overweight, thin, elderly, obese, frail build]. Speech: Is [pressured, tangential, circumstantial, flight of ideas, rate, volume, articulate, coherent, and spontaneous]. Thought processes: [Clear, Not goal-directed or Goal directed.] Rate of thoughts: . Thought content: [Irrational, Logical, Illogical, Tangential, Paranoid]. Abstract reasoning: . Computation: . Associations: [Loose, Tangential, Circumstantial, Intact]. Abnormal or psychotic thoughts: [Hallucinations, Delusions, Preoccupation with violence, Homicidal or suicidal ideation, and Obsessions.] Judgment: [Fair, Good, Very limited, Poor.] Insight: [Very limited, Good, Fair, Poor] Oriented to: [Time, place and person.] Recent and Remote Memory: [Immediate, short-term and long-term memory is intact] . Attention Span and Concentration: [Poor, Good, Fair]. Language: [Normal]. Fund of knowledge: [Adequate, Intact, Poor, Fair, Good]. Mood: [Irrational, Elated, Irritable, Depressed, Anxious, Restricted, Neutral]. Affect: [Appropriate, Reactive, Flat, Constricted, Animated, Irrational, Expansive, Restricted, Depressed, Anxious, Agitated, Hypomania, Lability]. VITAL SIGNS: Please see below. LABORATORY DATA: please see below. CONDITION ON DISCHARGE: DIAGNOSES ON DISCHARGE: 1. . 2. . 3. . MEDICATIONS ON DISCHARGE: - for . - for . - for . PLAN/FOLLOWUP ARRANGEMENTS: . The amount of time spent in the coordination of care for this patient was approximately minutes. Vital Signs Vital Sign - Last 24 Hours 07/05/16 07/05/16 04:00 08:00 Temp 96.8 97.6 Pulse 85 73 Resp 18 18 B/P 112/69 112/59 Pulse Ox 97 100 O2 Delivery Room Air Room Air Laboratory Data Labs 24H Laboratory Tests 2 07/05/16 05:00: Anion Gap 8, Blood Urea Nitrogen 11, Creatinine 0.79, Sodium Level 140, Potassium Level 3.5, Chloride Level 105, Carbon Dioxide Level 27, Calcium Level 8.8, Glomerular Filtration Rate > 60.0 CBC/BMP Laboratory Tests 07/05/16 05:00 Calcium Level 8.8, Red Blood Count 4.29, Mean Corpuscular Volume 92.0, Mean Corpuscular Hemoglobin 31.2, Mean Corpuscular Hemoglobin Concent 33.9, Red Cell Distribution Width 13.2 Medications Scheduled Levothyroxine Sodium (Synthroid) 88 Mcg Tab 88 MCG PO DAILY hypothyroid ( Reported) Oxcarbazepine (Oxcarbazepine) 150 Mg Tab 150 MG PO BID BACK PAIN (Reported) Allergies Coded Allergies: Prednisone (Verified Allergy, Severe, TACHY/DIZZY, 09/12/12) Penicillins (Verified Allergy, Intermediate, RASH/HIVES, 09/12/12) Penicillins Cross Reactors (Verified Allergy, Intermediate, RASH/HIVES, 09/12/12) Sertraline (Verified Adverse Reaction, Intermediate, AGITATION, 09/12/12) ELANA BIRMINGHAM MD Jul 06, 2016 00:15
--- NOTE | 2016-07-06 08:32 | ECHO ---
DATE OF PROCEDURE: 07/04/2016 DATE OF : 1980 AGE: 35 REFERRING PROVIDER: Dr. Justin Hercules. PATIENT LOCATION: Room 3224. REASON FOR ECHOCARDIOGRAM: Syncope. 2D MEASUREMENTS: IVS: 0.9 cm LV: 3.8 cm LVPW: 0.9 cm LA: 2.9 cm Aorta: 2.8 cm IVC: 1.7 cm RV: 2.3 cm Ascending aorta: 2.6 cm DOPPLER MEASUREMENTS: Mitral E: 1.1 Mitral A: 0.75 Ratio 1.46 2D COMMENTS: 1. Normal left ventricular size, wall thickness and left ventricular systolic function. The estimated global left ventricular systolic ejection fraction is 60% to 65%. 2. Normal left atrium. Normal right atrium and right ventricle. 3. The atrial septum appeared to be normal without evidence of defect or shunt. 4. Normal aortic root. 5. No pericardial effusion seen. 6. Moderately calcified aortic valve with normal leaflet motion. Minimally calcified mitral annulus with normal anterior mitral valve leaflet motion. Normal tricuspid valve. The pulmonic valve and proximal pulmonary artery branches were not well visualized. 7. The inferior vena cava was normal in size, central venous pressure is most likely normal. DOPPLER: No significant valvular abnormality is detected. IMPRESSION: 1. Normal global left ventricular systolic and diastolic function. 2. No significant valvular abnormalities noted. 3. No echocardiographic findings in this transthoracic echocardiogram that could explain the syncopal episode.
--- NOTE | 2016-07-06 10:00 | CR.PDOC ---
[facility] Consultation Consultation DATE OF CONSULTATION: 07/03/16 CONSULTATION REQUESTED BY: Internal Medicine REASON FOR CONSULTATION: [Evaluation of psychosis]. HPI: PAST PSYCHIATRIC HISTORY: PAST MEDICAL HISTORY: FAMILY HISTORY: Mother: Father: Siblings: Children: PERSONAL AND SOCIAL HISTORY: The patient was born and raised in [place]. Resides in: [place] Marital Status: M Children: Employment: SUBSTANCE ABUSE HISTORY: Smoking: ETOH: Illicit Drugs: LEGAL HISTORY: . MENTAL STATUS EXAMINATION: Patient is a -year old female, who is [pleasant, cooperative, well kempt], [tall, overweight, thin, elderly, obese, frail build]. Speech: Is [pressured, tangential, circumstantial, flight of ideas, rate, volume, articulate, coherent, and spontaneous]. Thought processes: [Clear, Not goal-directed or Goal directed.] Rate of thoughts: . Thought content: [Irrational, Logical, Illogical, Tangential, Paranoid]. Abstract reasoning: . Computation: . Associations: [Loose, Tangential, Circumstantial, Intact]. Abnormal or psychotic thoughts: [Hallucinations, Delusions, Preoccupation with violence, Homicidal or suicidal ideation, and Obsessions.] Judgment: [Fair, Good, Very limited, Poor.] Insight: [Very limited, Good, Fair, Poor] Oriented to: [Time, place and person.] Recent and Remote Memory: [Immediate, short-term and long-term memory is intact] . Attention Span and Concentration: [Poor, Good, Fair]. Language: [Normal]. Fund of knowledge: [Adequate, Intact, Poor, Fair, Good]. Mood: [Irrational, Elated, Irritable, Depressed, Anxious, Restricted, Neutral]. Affect: [Appropriate, Reactive, Flat, Constricted, Animated, Irrational, Expansive, Restricted, Depressed, Anxious, Agitated, Hypomania, Lability]. DIAGNOSIS: 1. . PLAN: 1. . 2. . Home Medications Current Medications Current Medications Medications (Trade) Dose Ordered Sig/Alli Route PRN Reason Start Time Stop Time Status Last Admin Dose Admin Acetaminophen (Tylenol Tab) 650 mg Q4HP PRN PO MILD PAIN OR FEVER 07/03/16 17:00 07/05/16 11:51 DC Enoxaparin Sodium (Lovenox) 40 mg DAILY SC 07/04/16 09:00 07/05/16 11:51 DC 07/04/16 15:27 Levothyroxine Sodium (Synthroid) 0.088 mg DAILY@06 PO 07/04/16 06:00 07/05/16 11:51 DC 07/05/16 04:55 Lorazepam 1 mg 1 mg Q4HP PRN PO ANXIETY 07/03/16 17:00 07/05/16 11:51 DC 07/05/16 09:57 Ondansetron HCl (Zofran) 4 mg Q6HP PRN IV NAUSEA OR VOMITING 07/03/16 17:00 07/05/16 11:51 DC Oxcarbazepine (Trileptal) 150 mg BID PO 07/03/16 21:00 07/05/16 11:51 DC 07/05/16 09:16 Oxycodone/ Acetaminophen (Percocet 5mg/ 325mg Tablet) 1 tab Q4HP PRN PO MODERATE PAIN (PS 5-7) 07/03/16 17:00 07/05/16 11:51 DC Sodium Chloride (Nacl 0.9%) 1,000 ml @ 50 mls/hr Q20H IV 07/03/16 16:54 07/05/16 11:51 DC 07/05/16 09:57 Scheduled Levothyroxine Sodium (Synthroid) 88 Mcg Tab 88 MCG PO DAILY hypothyroid ( Reported) Oxcarbazepine (Oxcarbazepine) 150 Mg Tab 150 MG PO BID BACK PAIN (Reported) Allergies Coded Allergies: Prednisone (Verified Allergy, Severe, TACHY/DIZZY, 09/12/12) Penicillins (Verified Allergy, Intermediate, RASH/HIVES, 09/12/12) Penicillins Cross Reactors (Verified Allergy, Intermediate, RASH/HIVES, 09/12/12) Sertraline (Verified Adverse Reaction, Intermediate, AGITATION, 09/12/12) ELANA BIRMINGHAM MD Jul 06, 2016 10:00
--- NOTE | 2016-07-06 10:58 | CR.PDOC ---
[facility] Consultation Consultation DATE OF CONSULTATION: 07-04-2016 ATTENDING PHYSICIAN: Dr. Jacky Birmingham M.D. REASON FOR CONSULTATION/CHIEF COMPLAINT: Evaluation and treatment of psychosis. HISTORY OF PRESENT ILLNESS: This is a 35-year-old female admitted to [facility] on 07/02/2016 for psychotic symptoms including paranoia and disorganized thinking and auditory hallucinations patient also manic reporting poor sleep approximately one week prior to admission. The night of admission patient slept 0 hours. The following day 07/03/2016 patient was given a 1 time dose of Seroquel 200 mg for agitation and to help her get sleep. Approximately 20 minute after being administered the dose patient due to her confusion and agitation began pacing the hallways. Patient experienced a syncopal event. To her fall patient lacerating her chin. She was alert and oriented 3 after the fall but was discharged from the psychiatric unit and transferred to [facility] medical floor for evaluation of syncopal event. CT head, troponins, EKG, all evaluations were negative. The medical floor patient continues to be a cottage voicing paranoid ideations, and continues to be significantly agitated. ALLERGIES: Please see below. HOME MEDICATIONS: Please see below. PAST MEDICAL HISTORY: 1. Bipolar 1 disorder FAMILY HISTORY: maternal family hx of Bipolar d/o SOCIAL HISTORY: Marital status and/or living arrangements: from her Children: children currently in custody of her Employment: unemployed LABORATORY DATA: Please see below. Mental status exam: Appearance - agitated, in hospital clothing, looks stated age, in no acute distress Behavior-moderately agitated, cooperative Eye contact- fair Speech-rapid, rhythm and prosody within normal limits Mood-worried Affect- agitated Thought process-disorganized and disorientated Thought content-consumed with paranoid delusions Orientation-alert and oriented 2 Judgment-poor Insight - poor ASSESSMENT: Bipolar 1 disorder MRE manic w/ PFs. RECOMMENDATION: -Continue antipsychotics prescribed on [facility] prior to admission to medical floor. -She continues to be psychotic. Recommend patient the transferred back to [facility] once medically cleared. Vital Signs/I&O Vital Signs Date Time Temp Pulse Resp B/P Pulse Ox O2 Delivery O2 Flow Rate FiO2 07/05/16 08:00 97.6 73 18 112/59 100 Room Air I&O- Last 24 Hours up to 6 AM 07/06/16 06:00 Intake Total 480 ml Balance 480 ml Allergies Coded Allergies: Prednisone (Verified Allergy, Severe, TACHY/DIZZY, 09/12/12) Penicillins (Verified Allergy, Intermediate, RASH/HIVES, 09/12/12) Penicillins Cross Reactors (Verified Allergy, Intermediate, RASH/HIVES, 09/12/12) Sertraline (Verified Adverse Reaction, Intermediate, AGITATION, 09/12/12) Home Medications Scheduled Levothyroxine Sodium (Synthroid) 88 Mcg Tab 88 MCG PO DAILY hypothyroid ( Reported) Oxcarbazepine (Oxcarbazepine) 150 Mg Tab 150 MG PO BID BACK PAIN (Reported) JACKY BIRMINGHAM MD Jul 06, 2016 10:58
== END 2016-07-05 11:51 | DRG 312 ==
LOC: M ED INP 16:42 → M PCU 16:55
PROVIDERS: ADMIT Internal Medicine; ATTEND Internal Medicine
DX: R55 Syncope and collapse (principal); F31.2 Bipolar disorder, current episode manic severe with psychotic features; T45.0X5A Adverse effect of antiallergic and antiemetic drugs, initial encounter; F43.10 Post-traumatic stress disorder, unspecified; E03.9 Hypothyroidism, unspecified; S01.81XA Laceration without foreign body of other part of head, initial encounter; F10.10 Alcohol abuse, uncomplicated; Z79.899 Other long term (current) drug therapy; Z88.8 Allergy status to other drugs, medicaments and biological substances; Z88.0 Allergy status to penicillin; Z90.49 Acquired absence of other specified parts of digestive tract; W01.0XXA Fall on same level from slipping, tripping and stumbling without subsequent striking against object, initial encounter; Y92.232 Corridor of hospital as the place of occurrence of the external cause; Y93.01 Activity, walking, marching and hiking; Y99.9 Unspecified external cause status; Z81.8 Family history of other mental and behavioral disorders

== ENCOUNTER 2016-07-05 12:00 | Inpatient (IN) | payer OTHER ==
[~2016-07-05] VITALS: Ht 165.1 cm; Wt 75.7 kg
[~2016-07-05 12:00] MED LIST changes: +RISP1TAB3 PO; +RISP2TAB3 PO
[2016-07-05] MEDS ORDERED: traZODone 50 MG TAB PO PRN (14:45)
[2016-07-05] MEDS ORDERED: MOM 30ML SUSPENSION UDC PO PRN (14:45)
[2016-07-05] MEDS ORDERED: LORazepam 1 MG TAB PO PRN (14:45)
[2016-07-05] MEDS ORDERED: OLANZapine ORAL DISINTEGRATING TAB 5MG PO PRN (14:45)
[2016-07-05 18:00] VITALS: BP 97/58
[2016-07-05] MEDS: risperiDONE 1 MG TAB PO SCH (20:55)
[2016-07-05] MEDS: OXcarbazepine 150 MG TAB PO SCH (20:55)
[2016-07-06] MEDS: ACETAMINOPHEN TAB 650MG DOSE (2X325MG) PO PRN (00:19)
[2016-07-06] MEDS: MAALOX 30 ML SUSP *UDC PO PRN (00:32)
[2016-07-06] MEDS: LEVOTHYROXINE 0.088 MG TAB (88 MCG) PO SCH (05:50)
[2016-07-06 06:00] VITALS: BP 108/77
[2016-07-06] MEDS: OXcarbazepine 150 MG TAB PO SCH ×2 (08:11→21:24)
[2016-07-06] MEDS: risperiDONE 1 MG TAB PO SCH ×2 (08:11→21:24)
--- NOTE | 2016-07-06 11:24 | HPEPDOC ---
[facility] History & Physical History and Physical DATE OF ADMISSION: Jul 05, 2016 at 12:00 ATTENDING PHYSICIAN: Dr. Jacky Birmingham M.D. REASON FOR CONSULTATION/CHIEF COMPLAINT: Evaluation and treatment of psychosis. HISTORY OF PRESENT ILLNESS: This is a 35-year-old female admitted to [facility] on 07/02/2016 for psychotic symptoms including paranoia and disorganized thinking and auditory hallucinations. Patient is also manic reporting poor sleep approximately one week prior to admission. The night of admission patient slept 0 hours. The following day 07/03/2016 patient was given a 1 time dose of Seroquel 200 mg for agitation and to help her get sleep. Approximately 20 minute after being administered the dose patient due to her confusion and agitation began pacing the hallways. Patient experienced a syncopal event. To her fall patient lacerating her chin. She was alert and oriented 3 after the fall but was discharged from the psychiatric unit and transferred to [facility] medical floor for evaluation of syncopal event. CT head , troponins, EKG, all evaluations were negative. On the medical floor patient continues to voice paranoid ideations, and continues to be significantly agitated. On 07/05/2016 patient was deemed medically stable by the medical team. Patient transferred back to [facility] and resumed on Trileptal and Risperdal for treatment of kayli and paranoid symptoms. Symptoms of kayli are significantly reduced yet paranoid ideations persist insomnia persists and patient remains significantly anxious. She denies suicidal and homicidal ideations she denies auditory and visual hallucinations. On admission patient reported auditory hallucinations of a male voice which he interpreted as having telepathy. ALLERGIES: Please see below. HOME MEDICATIONS: Please see below. PAST MEDICAL HISTORY: 1. Bipolar 1 disorder FAMILY HISTORY: maternal family hx of Bipolar d/o SOCIAL HISTORY: Marital status and/or living arrangements: from her Children: children currently in custody of her Employment: unemployed LABORATORY DATA: Please see below. Vital signs: Temperature [97.4], pulse [72], respiratory rate [16], blood pressure [97/58] MENTAL STATUS EXAMINATION: Patient is a 35-year old female, who is thin, looks stated age, calm and cooperative]. Speech: Is [regular rate and rhythm, spontaneous]. Thought processes: [Goal-directed, circumstantial at times] Rate of thoughts: [Appropriate]. Thought content: Ongoing paranoid ideations regarding safety of her children. Associations: [Circumstantial ]. Abnormal or psychotic thoughts: [consumed with paranoid ideations] Judgment: [Poor.] Insight: [Poor] Oriented to: [Time, place and person.] Recent and Remote Memory: [Immediate, short-term and long-term memory is intact] . Attention Span and Concentration: [Poor, Good, Fair]. Language: [Normal]. Fund of knowledge: [Good]. Mood: [Anxious, Restricted]. Affect: [Constricted ]. ASSESSMENT: Bipolar 1 disorder MRE manic w/ PFs. PLAN OF CARE: -Continue Trileptal 150 mg by mouth twice a day for mood stabilization. -Continue Risperdal at 1 mg by mouth twice a day for psychosis. - Medications Scheduled Levothyroxine Sodium (Synthroid) 88 Mcg Tab 88 MCG PO DAILY hypothyroid ( Reported) Oxcarbazepine (Oxcarbazepine) 150 Mg Tab 150 MG PO BID BACK PAIN (Reported) Allergies Coded Allergies: Prednisone (Verified Allergy, Severe, TACHY/DIZZY, 09/12/12) Penicillins (Verified Allergy, Intermediate, RASH/HIVES, 09/12/12) Penicillins Cross Reactors (Verified Allergy, Intermediate, RASH/HIVES, 09/12/12) Sertraline (Verified Adverse Reaction, Intermediate, AGITATION, 09/12/12) JACKY BIRMINGHAM MD Jul 06, 2016 11:23
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
[2016-07-06 18:00] VITALS: BP 118/73
[2016-07-07] MEDS: LEVOTHYROXINE 0.088 MG TAB (88 MCG) PO SCH (06:01)
[2016-07-07 06:46] VITALS: BP 115/58
[2016-07-07] MEDS: OXcarbazepine 150 MG TAB PO SCH ×2 (09:11→21:21)
[2016-07-07] MEDS: risperiDONE 1 MG TAB PO SCH ×2 (09:11→21:21)
[2016-07-07 18:00] VITALS: BP 136/58
[2016-07-08] MEDS: MAALOX 30 ML SUSP *UDC PO PRN (00:29)
[2016-07-08] MEDS: LEVOTHYROXINE 0.088 MG TAB (88 MCG) PO SCH (06:00)
[2016-07-08 06:40] VITALS: BP 131/84
[2016-07-08] MEDS: risperiDONE 1 MG TAB PO SCH (09:03)
[2016-07-08] MEDS: OXcarbazepine 150 MG TAB PO SCH ×2 (09:03→21:45)
[2016-07-08] MEDS ORDERED: LEVOTHYROXINE 0.088 MG TAB (88 MCG) PO ONE (12:00)
[2016-07-08 18:00] VITALS: BP 127/58
[2016-07-08] MEDS ORDERED: LURASIDONE 20 MG TAB (LATUDA) PO SCH (21:00)
[2016-07-09] MEDS: LEVOTHYROXINE 0.088 MG TAB (88 MCG) PO SCH (06:09)
[2016-07-09 06:48] VITALS: BP 120/77
[2016-07-09] MEDS: OXcarbazepine 150 MG TAB PO SCH ×2 (08:36→21:00)
--- NOTE | 2016-07-09 13:09 | IPNPDOC ---
[facility] Progress Note Progress Note DATE OF SERVICE: 07/07/16 Subjective: Patient calm and cooperative on interview. Patient is med compliant, but again reporting overwhelming daytime sedation since starting Risperdal. Patient reports improving sleep and appetite. Again she denies SI/HI and denies VH. Patient continues to express delusion that she has telepathic ability. These are likely AHs. Patient reports that she talks with one man in particular, Omer Shi. Patient though says this is an alias. Patient no issue on the unit. She denies complaints. Objective: VITAL SIGNS: See below. NEW TEST RESULTS: See below CURRENT MEDICATIONS: See below. MENTAL STATUS EXAMINATION: Patient is a 36 year-old female who appears her stated age. Speech: Is regular rate and rhythm and spontaneous. Language skills are intact. Thought processes including: linear, but illogical, irrational.Thought content: ongoing but receding paranoid ideations that her children are in danger while in her estranged 's care;Description of abnormal or psychotic thoughts: paranoid delusions; AH which patient perceives as telepathy; Judgment:poor Insight: poor;Orientation to time, place and person. Recent and remote memory: Immediate, short-term and long-term memory is intact. Attention span and concentration: Good Language: Normal. Fund of knowledge: Fair Mood: Euthymic. Affect: Bright, SI denies. HI denies Assessment: Bipolar 1 d/o, MRE manic with PFs Plan: Continue Risperdal at 1mg po BID for psychosis / mood stabilization. Patient though with ongoing complaints of overwhelming daytime sedation since starting Risperdal. Continue Trileptal at 150mg po BID for mood stabilization TIME SPENT: 30 minutes. Vital Signs Vital Signs Date Time Temp Pulse Resp B/P Pulse Ox O2 Delivery O2 Flow Rate FiO2 07/09/16 06:48 97.2 106 18 120/77 Current Medications Current Medications Medications (Trade) Dose Ordered Sig/Alli Route PRN Reason Start Time Stop Time Status Last Admin Dose Admin Acetaminophen (Tylenol Tab) 650 mg Q6HP PRN PO HEADACHE or DISCOMFORT 07/05/16 14:45 08/04/16 14:44 07/06/16 00:19 Al Hydrox/Mg Hydrox/Simethicone (Mylanta) 30 ml Q4HP PRN PO HEARTBURN/INDIGESTION 07/05/16 14:45 08/04/16 14:44 07/08/16 00:29 Levothyroxine Sodium (Synthroid) 0.088 mg DAILY@06 PO 07/06/16 06:00 08/05/16 05:59 07/09/16 06:09 Lorazepam (Ativan) 1 mg Q6HP PRN PO ANXIETY/AGITATION 07/05/16 14:45 07/12/16 14:44 Lurasidone HCl (Latuda (Lurasidone)) 60 mg QHS PO 07/08/16 21:00 08/07/16 20:59 07/08/16 21:45 Magnesium Hydroxide (Milk Of Magnesia) 30 ml DAILYPRN PRN PO CONSTIPATION 07/05/16 14:45 08/04/16 14:44 07/07/16 08:14 Olanzapine (ZyPREXA ZYDIS) 5 mg Q4HP PRN PO AGITATION 07/05/16 14:45 08/04/16 14:44 Oxcarbazepine (Trileptal) 150 mg BID PO 07/05/16 21:00 07/08/16 16:18 DC 07/08/16 09:03 Oxcarbazepine (Trileptal) 300 mg BID PO 07/08/16 21:00 08/07/16 20:59 07/09/16 08:36 Risperidone (RisperDAL) 1 mg BID PO 07/05/16 21:00 07/08/16 16:18 DC 07/08/16 09:03 Trazodone HCl (Desyrel) 50 mg QHSP PRN PO INSOMNIA 07/05/16 14:45 08/04/16 14:44 Allergies Coded Allergies: Prednisone (Verified Allergy, Severe, TACHY/DIZZY, 09/12/12) Penicillins (Verified Allergy, Intermediate, RASH/HIVES, 09/12/12) Penicillins Cross Reactors (Verified Allergy, Intermediate, RASH/HIVES, 09/12/12) Sertraline (Verified Adverse Reaction, Intermediate, AGITATION, 09/12/12) ELANA BIRMINGHAM MD Jul 09, 2016 13:09
--- NOTE | 2016-07-09 13:13 | IPNPDOC ---
[facility] Progress Note Progress Note DATE OF SERVICE: 07/08/16 Subjective: Patient is guarded and sullen on initiation of interview. She is compliant with medication but continues to report intolerable sedation and feeling cloudy on Risperdal 1 mg by mouth twice a day. Patient informed due to the ongoing sedation, med modification is appropriate. Patient amenable to discharge continue Risperdal. She is amenable to starting Latuda at 60 mg by mouth daily with 350 calorie meal. She is amenable to increasing dose of Trileptal from 150 mg by mouth twice a day to 300 mg by mouth twice a day for mood stabilization. Patient denies SI/HI. She endorses ongoing leave that she is communicating with Omer Shi by telepathy. She shows no insight into her mental health issues. She continues to be easily agitated and labile in mood. The extent of her lability and agitation is improving. Sleep is improving appetite is improving. Will monitor over the weekend on the increased dose of Trileptal and newly initiated Latuda. Objective: VITAL SIGNS: See below. NEW TEST RESULTS: None CURRENT MEDICATIONS: See below. MENTAL STATUS EXAMINATION: Patient is a 35 year-old female who appears her stated age. Speech: Is regular rate and rhythm and spontaneous. Language skills are intact. Thought processes including: Linear but irrational Thought content: Consumed by her paranoia and auditory hallucinations description of abnormal or psychotic thoughts: Ongoing auditory hallucinations that patient perceives to be at the conversation. Judgment: Poor Insight: Poor Orientation to time, place and person. Recent and remote memory: Immediate, short-term and long-term memory is intact. Attention span and concentration: Good Language: Normal. Fund of knowledge: Fair Mood: Depressed Affect: Labile. SI denies. HI denies Assessment: Bipolar 1 disorder most recent episode manic with psychotic features Plan: ----- -Discontinue Risperdal -Patient gives informed consent to initiate Latuda at 60 mg by mouth daily at bedtime for mood stabilization and psychosis -Increase Trileptal from 150 mg by mouth twice a day to 300 mg by mouth twice a day for mood stabilization Estimated date of discharge: 07/16/16 TIME SPENT: 30 minutes. Vital Signs Vital Signs Date Time Temp Pulse Resp B/P Pulse Ox O2 Delivery O2 Flow Rate FiO2 07/09/16 06:48 97.2 106 18 120/77 Current Medications Current Medications Medications (Trade) Dose Ordered Sig/Alli Route PRN Reason Start Time Stop Time Status Last Admin Dose Admin Acetaminophen (Tylenol Tab) 650 mg Q6HP PRN PO HEADACHE or DISCOMFORT 07/05/16 14:45 08/04/16 14:44 07/06/16 00:19 Al Hydrox/Mg Hydrox/Simethicone (Mylanta) 30 ml Q4HP PRN PO HEARTBURN/INDIGESTION 07/05/16 14:45 08/04/16 14:44 07/08/16 00:29 Levothyroxine Sodium (Synthroid) 0.088 mg DAILY@06 PO 07/06/16 06:00 08/05/16 05:59 07/09/16 06:09 Lorazepam (Ativan) 1 mg Q6HP PRN PO ANXIETY/AGITATION 07/05/16 14:45 07/12/16 14:44 Lurasidone HCl (Latuda (Lurasidone)) 60 mg QHS PO 07/08/16 21:00 08/07/16 20:59 07/08/16 21:45 Magnesium Hydroxide (Milk Of Magnesia) 30 ml DAILYPRN PRN PO CONSTIPATION 07/05/16 14:45 08/04/16 14:44 07/07/16 08:14 Olanzapine (ZyPREXA ZYDIS) 5 mg Q4HP PRN PO AGITATION 07/05/16 14:45 08/04/16 14:44 Oxcarbazepine (Trileptal) 150 mg BID PO 07/05/16 21:00 07/08/16 16:18 DC 07/08/16 09:03 Oxcarbazepine (Trileptal) 300 mg BID PO 07/08/16 21:00 08/07/16 20:59 07/09/16 08:36 Risperidone (RisperDAL) 1 mg BID PO 07/05/16 21:00 07/08/16 16:18 DC 07/08/16 09:03 Trazodone HCl (Desyrel) 50 mg QHSP PRN PO INSOMNIA 07/05/16 14:45 08/04/16 14:44 Allergies Coded Allergies: Prednisone (Verified Allergy, Severe, TACHY/DIZZY, 09/12/12) Penicillins (Verified Allergy, Intermediate, RASH/HIVES, 09/12/12) Penicillins Cross Reactors (Verified Allergy, Intermediate, RASH/HIVES, 09/12/12) Sertraline (Verified Adverse Reaction, Intermediate, AGITATION, 09/12/12) ELANA BIRMINGHAM MD Jul 09, 2016 13:13
[2016-07-09 18:00] VITALS: BP 129/76
[2016-07-09] MEDS: LURASIDONE 20 MG TAB (LATUDA) PO SCH (21:00)
[2016-07-10] MEDS: LEVOTHYROXINE 0.088 MG TAB (88 MCG) PO SCH (06:03)
[2016-07-10 06:37] VITALS: BP 135/77
[2016-07-10] MEDS: LURASIDONE 20 MG TAB (LATUDA) PO SCH ×2 (09:54→22:03)
[2016-07-10] MEDS: OXcarbazepine 150 MG TAB PO SCH ×2 (09:55→22:03)
[2016-07-10] MEDS ORDERED: BENZTROPINE 2 MG TAB PO ONE (11:30)
[2016-07-10 18:00] VITALS: BP 117/66
[2016-07-11] MEDS: LEVOTHYROXINE 0.088 MG TAB (88 MCG) PO SCH (06:02)
[2016-07-11 06:53] VITALS: BP 112/67
[2016-07-11] MEDS: OXcarbazepine 150 MG TAB PO SCH ×2 (08:34→18:12)
[2016-07-11] MEDS: LURASIDONE 20 MG TAB (LATUDA) PO SCH ×2 (08:35→18:09)
[2016-07-11 18:00] VITALS: BP 104/53
[2016-07-12] MEDS: LEVOTHYROXINE 0.088 MG TAB (88 MCG) PO SCH (05:48)
[2016-07-12 06:44] VITALS: BP 110/58
[2016-07-12] MEDS: OXcarbazepine 150 MG TAB PO SCH ×2 (08:30→20:17)
[2016-07-12] MEDS: LURASIDONE 20 MG TAB (LATUDA) PO SCH ×2 (08:31→20:17)
[2016-07-12 18:00] VITALS: BP 98/55
[2016-07-13] MEDS: LEVOTHYROXINE 0.088 MG TAB (88 MCG) PO SCH (06:07)
[2016-07-13 06:43] VITALS: BP 115/63
[2016-07-13] MEDS: LURASIDONE 20 MG TAB (LATUDA) PO SCH ×2 (09:15→22:11)
[2016-07-13] MEDS: OXcarbazepine 150 MG TAB PO SCH ×2 (09:15→22:11)
--- NOTE | 2016-07-13 10:58 | IPNPDOC ---
[facility] Progress Note Progress Note DATE OF SERVICE: 07/09/16 Subjective: Patient is cooperative and engaged in the interview. She was compliant with Latuda 60mg po qhs and the higher 300mg qhs dose of Trileptal. She reports no noticeable s/e's. Patient reports poor sleep last night. She reports appetite is wnl. Patient denies SI/HI. She endorses ongoing leave that she is communicating with Omer Shi by telepathy. Patient continues to express a paranoid delusion that her children are in danger while in the custody of her estranged , even though when she calls them there is no evidence to support the ideation. She shows no insight into her mental health issues. She continues to be irritable and labile in mood. Objective: VITAL SIGNS: See below. NEW TEST RESULTS: None CURRENT MEDICATIONS: See below. MENTAL STATUS EXAMINATION: Patient is a 35 year-old female who appears her stated age. Speech: Is regular rate and rhythm and spontaneous. Language skills are intact. Thought processes including: Linear but irrational; Thought content: Consumed by her paranoid ideations that her children are in danger while in the custody of her estranged ; Description of abnormal or psychotic thoughts: Ongoing auditory hallucinations that patient perceives as telepathic ability. Judgment: Poor Insight: Poor Orientation to time, place and person. Recent and remote memory: Immediate, short-term and long-term memory is intact. Attention span and concentration: Good Language: Normal. Fund of knowledge: Fair Mood: Depressed Affect: Labile. SI denies. HI denies Assessment: Bipolar 1 disorder most recent episode manic with psychotic features Plan: ----- -Risperdal discontinued due to s/e of overwhelming daytime sedation. -Continue Latuda at 60 mg by mouth daily at bedtime for mood stabilization and psychosis -Continue Trileptal 300 mg by mouth twice a day for mood stabilization Estimated date of discharge: 07/16/16 TIME SPENT: 30 minutes. Vital Signs Vital Signs Date Time Temp Pulse Resp B/P Pulse Ox O2 Delivery O2 Flow Rate FiO2 07/13/16 06:43 97.1 88 20 115/63 07/09/16 18:00 Room Air Current Medications Current Medications Medications (Trade) Dose Ordered Sig/Alli Route PRN Reason Start Time Stop Time Status Last Admin Dose Admin Acetaminophen (Tylenol Tab) 650 mg Q6HP PRN PO HEADACHE or DISCOMFORT 07/05/16 14:45 08/04/16 14:44 07/06/16 00:19 Al Hydrox/Mg Hydrox/Simethicone (Mylanta) 30 ml Q4HP PRN PO HEARTBURN/INDIGESTION 07/05/16 14:45 08/04/16 14:44 07/08/16 00:29 Levothyroxine Sodium (Synthroid) 0.088 mg DAILY@06 PO 07/06/16 06:00 08/05/16 05:59 07/13/16 06:07 Lorazepam (Ativan) 1 mg Q6HP PRN PO ANXIETY/AGITATION 07/05/16 14:45 07/19/16 14:44 07/10/16 12:00 Lurasidone HCl (Latuda (Lurasidone)) 60 mg BID PO 07/09/16 21:00 08/08/16 20:59 07/13/16 09:15 Lurasidone HCl (Latuda (Lurasidone)) 60 mg QHS PO 07/08/16 21:00 07/09/16 15:18 DC 07/08/16 21:45 Magnesium Hydroxide (Milk Of Magnesia) 30 ml DAILYPRN PRN PO CONSTIPATION 07/05/16 14:45 08/04/16 14:44 07/07/16 08:14 Olanzapine (ZyPREXA ZYDIS) 5 mg Q4HP PRN PO AGITATION 07/05/16 14:45 08/04/16 14:44 Oxcarbazepine (Trileptal) 150 mg BID PO 07/05/16 21:00 07/08/16 16:18 DC 07/08/16 09:03 Oxcarbazepine (Trileptal) 300 mg BID PO 07/08/16 21:00 08/07/16 20:59 07/13/16 09:15 Risperidone (RisperDAL) 1 mg BID PO 07/05/16 21:00 07/08/16 16:18 DC 07/08/16 09:03 Trazodone HCl (Desyrel) 50 mg QHSP PRN PO INSOMNIA 07/05/16 14:45 08/04/16 14:44 Allergies Coded Allergies: Prednisone (Verified Allergy, Severe, TACHY/DIZZY, 09/12/12) Penicillins (Verified Allergy, Intermediate, RASH/HIVES, 09/12/12) Penicillins Cross Reactors (Verified Allergy, Intermediate, RASH/HIVES, 09/12/12) Sertraline (Verified Adverse Reaction, Intermediate, AGITATION, 09/12/12) ELANA BIRMINGHAM MD Jul 13, 2016 10:58
--- NOTE | 2016-07-13 11:11 | IPNPDOC ---
[facility] Progress Note Progress Note DATE OF SERVICE: 07/10/16 Subjective: Patient is manic and agitated on interview today. She was non-compliant with Latuda yesterday. Today she is consumed with paranoid ideations that she is being surveilled and threatened by the [employer]. She reports she is of [employer] who will [employer]. She reports this as the reasoning for her persecution. Patient reports ongoing AHs, she perceives as coming from a commercial real estate associate she met over 3 yrs ago associated with another inpatient hospitalization. Patient amenable to increasing Latuda to BID. She is encouraged to take meds with 350cal for appropriate absorption. She is encouraged to be med compliant. She also continues to feel her children are in danger being in the custody of her although her daily phone calls to them do not lend credence to this ideation. She shows no insight intoher mental health issues. Sleep and appetite has also worsening. Will monitor over the weekend on the increased dose of Trileptal and BID dose of Latuda 60mg po. Objective: VITAL SIGNS: See below. NEW TEST RESULTS: None CURRENT MEDICATIONS: See below. MENTAL STATUS EXAMINATION: Patient is a 35 year-old female who appears her stated age. Patient is agitated and manic in behavior. Speech: Is rapid in rate and rhythm and spontaneous. Language skills are intact. Thought processes: FOI, illogical; Thought content: Consumed by her paranoia and auditory hallucinations. Patient believes she and her children are being surveilled by the [employer] as she is of "[employer]"...sent to "[employer]"; Description of abnormal or psychotic thoughts: Ongoing auditory hallucinations that patient perceives to be telepathy Judgment: Poor Insight: Poor Orientation to time, place and person. Recent and remote memory: Immediate , short-term and long-term memory is intact. Attention span and concentration: Good Language: Normal. Fund of knowledge: Fair Mood: agitated Affect: Labile. SI denies. HI denies Assessment: Bipolar 1 disorder most recent episode manic with psychotic features Plan: ----- -Risperdal discontinued due to intolerable sedation s/e. -Continue Latuda at 60 mg by mouth BID for mood stabilization and psychosis. -Continue Trileptal 300 mg by mouth twice a day for mood stabilization. Estimated date of discharge: 07/16/16 TIME SPENT: 30 minutes. Vital Signs Vital Signs Date Time Temp Pulse Resp B/P Pulse Ox O2 Delivery O2 Flow Rate FiO2 07/13/16 06:43 97.1 88 20 115/63 07/09/16 18:00 Room Air Current Medications Current Medications Medications (Trade) Dose Ordered Sig/Alli Route PRN Reason Start Time Stop Time Status Last Admin Dose Admin Acetaminophen (Tylenol Tab) 650 mg Q6HP PRN PO HEADACHE or DISCOMFORT 07/05/16 14:45 08/04/16 14:44 07/06/16 00:19 Al Hydrox/Mg Hydrox/Simethicone (Mylanta) 30 ml Q4HP PRN PO HEARTBURN/INDIGESTION 07/05/16 14:45 08/04/16 14:44 07/08/16 00:29 Levothyroxine Sodium (Synthroid) 0.088 mg DAILY@06 PO 07/06/16 06:00 08/05/16 05:59 07/13/16 06:07 Lorazepam (Ativan) 1 mg Q6HP PRN PO ANXIETY/AGITATION 07/05/16 14:45 07/19/16 14:44 07/10/16 12:00 Lurasidone HCl (Latuda (Lurasidone)) 60 mg BID PO 07/09/16 21:00 08/08/16 20:59 07/13/16 09:15 Lurasidone HCl (Latuda (Lurasidone)) 60 mg QHS PO 07/08/16 21:00 07/09/16 15:18 DC 07/08/16 21:45 Magnesium Hydroxide (Milk Of Magnesia) 30 ml DAILYPRN PRN PO CONSTIPATION 07/05/16 14:45 08/04/16 14:44 07/07/16 08:14 Olanzapine (ZyPREXA ZYDIS) 5 mg Q4HP PRN PO AGITATION 07/05/16 14:45 08/04/16 14:44 Oxcarbazepine (Trileptal) 150 mg BID PO 07/05/16 21:00 07/08/16 16:18 DC 07/08/16 09:03 Oxcarbazepine (Trileptal) 300 mg BID PO 07/08/16 21:00 08/07/16 20:59 07/13/16 09:15 Risperidone (RisperDAL) 1 mg BID PO 07/05/16 21:00 07/08/16 16:18 DC 07/08/16 09:03 Trazodone HCl (Desyrel) 50 mg QHSP PRN PO INSOMNIA 07/05/16 14:45 08/04/16 14:44 Allergies Coded Allergies: Prednisone (Verified Allergy, Severe, TACHY/DIZZY, 09/12/12) Penicillins (Verified Allergy, Intermediate, RASH/HIVES, 09/12/12) Penicillins Cross Reactors (Verified Allergy, Intermediate, RASH/HIVES, 09/12/12) Sertraline (Verified Adverse Reaction, Intermediate, AGITATION, 09/12/12) ELANA BIRMINGHAM MD Jul 13, 2016 11:11
--- NOTE | 2016-07-13 15:20 | IPNPDOC ---
[facility] Progress Note Progress Note DATE OF SERVICE: 07/13/16 Subjective: Patient is anxious, but cooperative with interview today. She was compliant with Latuda BID and Trileptal BID doses over the weekend. Patient reports diminished appetite, but improved sleep, approx 7-8 hours last night. Patient again instructed she must take at least 350 shubham meal with Latuda doses or the absorption is affected. She acknowledged understanding. Today patient continues to have delusions of her children being in danger; Believes her isnt who he says he is, wants to get poa changed, wantsto have a CPS sandoval; wanting staff to talk to her family regarding her progress, patient signed multiple [employer] forms. Patient denies auditory hallucinations, she remarks that her ideations of being [employer] and [facility] [place] were "silly weren't they". Patient though pauses and seems to minimize these thoughts as she pauses to think which is the better answer. To have them or not. She expresses thoughts in a rapid and tangential manner. She is again encouraged to be med compliant. She shows slightly improved insight into her mental health issues as she now discerns their inappropriateness. Objective: VITAL SIGNS: See below. NEW TEST RESULTS: None CURRENT MEDICATIONS: See below. MENTAL STATUS EXAMINATION: Patient is a 35 year-old female who appears her stated age. Patient calm and cooperative in behavior. She is in NAD. Speech: Is RRR and spontaneous. Language skills are intact. Thought processes: mostly linear, tangential at times; Thought content: continues to have delusions of her children being in danger; Believes her isnt who he says he is, wanting to get poa changed, wanting to have a CPS sandoval; wanting staff to talk to her family regarding her progress, patient signed multiple [employer] forms; Description of abnormal or psychotic thoughts: today patient denies auditory hallucinations, she remarks that her ideations of being [employer] and [facility] were "silly weren't they". Patient though pauses and seems to minimize these thoughts as she pauses to think which is the better answer. Judgment: Poor Insight: Poor Orientation to time, place and person. Recent and remote memory: Immediate, short-term and long-term memory is intact. Attention span and concentration: Good Language: Normal. Fund of knowledge: Fair Mood: dysthymic Affect: Labile. SI denies. HI denies Assessment: Bipolar 1 disorder most recent episode manic with psychotic features Plan: ----- -Risperdal discontinued due to intolerable sedation s/e. -Continue Latuda at 60 mg by mouth BID for mood stabilization and psychosis. -Continue Trileptal 300 mg by mouth twice a day for mood stabilization. Estimated date of discharge: 07/16/16 TIME SPENT: 30 minutes. Vital Signs Vital Signs Date Time Temp Pulse Resp B/P Pulse Ox O2 Delivery O2 Flow Rate FiO2 07/13/16 06:43 97.1 88 20 115/63 07/09/16 18:00 Room Air Current Medications Current Medications Medications (Trade) Dose Ordered Sig/Alli Route PRN Reason Start Time Stop Time Status Last Admin Dose Admin Acetaminophen (Tylenol Tab) 650 mg Q6HP PRN PO HEADACHE or DISCOMFORT 07/05/16 14:45 08/04/16 14:44 07/06/16 00:19 Al Hydrox/Mg Hydrox/Simethicone (Mylanta) 30 ml Q4HP PRN PO HEARTBURN/INDIGESTION 07/05/16 14:45 08/04/16 14:44 07/08/16 00:29 Levothyroxine Sodium (Synthroid) 0.088 mg DAILY@06 PO 07/06/16 06:00 08/05/16 05:59 07/13/16 06:07 Lorazepam (Ativan) 1 mg Q6HP PRN PO ANXIETY/AGITATION 07/05/16 14:45 07/19/16 14:44 07/10/16 12:00 Lurasidone HCl (Latuda (Lurasidone)) 60 mg BID PO 07/09/16 21:00 08/08/16 20:59 07/13/16 09:15 Lurasidone HCl (Latuda (Lurasidone)) 60 mg QHS PO 07/08/16 21:00 07/09/16 15:18 DC 07/08/16 21:45 Magnesium Hydroxide (Milk Of Magnesia) 30 ml DAILYPRN PRN PO CONSTIPATION 07/05/16 14:45 08/04/16 14:44 07/07/16 08:14 Olanzapine (ZyPREXA ZYDIS) 5 mg Q4HP PRN PO AGITATION 07/05/16 14:45 08/04/16 14:44 Oxcarbazepine (Trileptal) 150 mg BID PO 07/05/16 21:00 07/08/16 16:18 DC 07/08/16 09:03 Oxcarbazepine (Trileptal) 300 mg BID PO 07/08/16 21:00 08/07/16 20:59 07/13/16 09:15 Risperidone (RisperDAL) 1 mg BID PO 07/05/16 21:00 07/08/16 16:18 DC 07/08/16 09:03 Trazodone HCl (Desyrel) 50 mg QHSP PRN PO INSOMNIA 07/05/16 14:45 08/04/16 14:44 Allergies Coded Allergies: Prednisone (Verified Allergy, Severe, TACHY/DIZZY, 09/12/12) Penicillins (Verified Allergy, Intermediate, RASH/HIVES, 09/12/12) Penicillins Cross Reactors (Verified Allergy, Intermediate, RASH/HIVES, 09/12/12) Sertraline (Verified Adverse Reaction, Intermediate, AGITATION, 09/12/12) ELANA BIRMINGHAM MD Jul 13, 2016 15:19
[2016-07-13 16:31] LABS: BASO % 0.5 % (0.0-1.0); EOS # 0.1 K/mm3 (0.0-0.50); EOS % 1.6 % (0.0-3.0); LARGE UNSTAINED CELL # 0.1 K/mm3 (0.0-0.4); LARGE UNSTAINED CELL % 2.1 % (0.0-4.0); LYMPH # 2.3 K/mm3 (1.5-4.5); LYMPH % 37.8 % (24.0-44.0); MEAN CORPUSCULAR HEMOGLOBIN 31.1 pg (27.0-33.0); MEAN CORPUSCULAR HGB CONC 34.8 g/dl (32.0-36.5); MEAN CORPUSCULAR VOLUME 89.4 fl (80.0-96.0); MONO # 0.3 K/mm3 (0.0-0.8); MONO % 5.7 % (0.0-5.0); NEUTROPHILS # 3.1 K/mm3 (1.8-7.7); NEUTROPHILS % 52.4 % (36.0-66.0); PLATELET COUNT, AUTOMATED 200 k/mm3 (150-450); RED CELL DISTRIBUTION WIDTH 11.7 % (11.5-14.5)
[2016-07-13 16:51] LABS: ALBUMIN 4.9 GM/DL (3.2-5.2); ALBUMIN/GLOBULIN RATIO 1.58 (1.00-1.93); ALKALINE PHOSPHATASE 83 U/L (45-117); ALT/SGPT 25 U/L (12-78); ANION GAP 10 MEQ/L (8-16); AST/SGOT 20 U/L (15-37); BILIRUBIN,TOTAL 1.1 MG/DL (0.2-1.0); BLOOD UREA NITROGEN 7 MG/DL (7-18); CALCIUM LEVEL 9.7 MG/DL (8.5-10.1); CARBON DIOXIDE LEVEL 29 MEQ/L (21-32); CHLORIDE LEVEL 96 MEQ/L (98-107); CREATININE FOR GFR 0.66 MG/DL (0.55-1.02); GLOMERULAR FILTRATION RATE > 60.0 (>60); GLUCOSE, FASTING 93 MG/DL (70-105); POTASSIUM SERUM 4.2 MEQ/L (3.5-5.1); SODIUM LEVEL 135 MEQ/L (136-145)
[2016-07-13 18:24] VITALS: BP 122/80
[2016-07-14] MEDS: LEVOTHYROXINE 0.088 MG TAB (88 MCG) PO SCH (05:50)
[2016-07-14 06:31] VITALS: BP 103/61
[2016-07-14] MEDS: OXcarbazepine 150 MG TAB PO SCH ×2 (08:28→21:44)
[2016-07-14] MEDS: LURASIDONE 20 MG TAB (LATUDA) PO SCH ×2 (08:29→21:45)
--- NOTE | 2016-07-14 15:23 | IPNPDOC ---
[facility] Progress Note Progress Note DATE OF SERVICE: 07/14/16 Subjective: Patient calm and cooperative with interview today. She continues to be compliant with Latuda BID and Trileptal BID doses over the weekend. Patient reports taking both doses of Latuda with at least 350 calories. Patient educated on and again acknowledges understanding of importance of administering Latuda with a meal for proper med absorption. Patient reports good sleep last night. On entry into patient's room she was noted to be tucked into bed, reading. She denies racing thoughts. She acknowledges feeling calmer and less tense on Latuda and acknowledgesd gained insight into the inappropriateness of her recent interpretations of her children 's well being and on the veracity of her thoughts telling her she's telepathic and has the ability to converse telepathically. Patient's delusion that her children are in danger persists, but is noticeably less intrusive and less distressing. She is again encouraged to be med compliant. She shows ongoing improved insight into her mental health issues. She denies SI/HI and AH/VH. Objective: VITAL SIGNS: See below. NEW TEST RESULTS: None CURRENT MEDICATIONS: See below. MENTAL STATUS EXAMINATION: Patient is a 35 year-old female who appears her stated age. Patient calm and cooperative in behavior. She is in NAD. Speech: Is RRR and spontaneous. Eye contact: less intense today, appropriate; Language skills are intact. Thought processes: linear and goal directed; Thought content: focused on finding housing through yarsani friends, patient reluctant to discharge back to her home which she shares with her estranged ; Description of abnormal or psychotic thoughts: today patient denies auditory/visual hallucinations, she is not preoccupied in manner as if responding to internal stimuli; Judgment: Poor to Fair; Insight: Poor to Fair; Orientation to time, place and person. Recent and remote memory: Immediate, short-term and long-term memory is intact. Attention span and concentration: Good Language: Normal. Fund of knowledge: Fair Mood: dysthymic Affect: mildly depressed. SI denies. HI denies Assessment: Bipolar 1 disorder most recent episode manic with psychotic features Plan: ----- -Risperdal discontinued due to intolerable sedation s/e. -Continue Latuda at 60 mg by mouth BID for mood stabilization and psychosis. -Continue Trileptal 300 mg by mouth twice a day for mood stabilization. Estimated date of discharge: 07/16/16 TIME SPENT: 30 minutes. Vital Signs Vital Signs Date Time Temp Pulse Resp B/P Pulse Ox O2 Delivery O2 Flow Rate FiO2 07/14/16 06:31 96.3 85 20 103/61 07/09/16 18:00 Room Air Laboratory Data 24H Labs Laboratory Tests 2 07/13/16 15:53: Blood Urea Nitrogen 7, Creatinine 0.66, Sodium Level 135L, Potassium Level 4.2, Chloride Level 96L, Carbon Dioxide Level 29, Calcium Level 9.7, Aspartate Amino Transf (AST/SGOT) 20, Alanine Aminotransferase (ALT/SGPT) 25, Alkaline Phosphatase 83, Total Bilirubin 1.1H, Total Protein 8.0, Albumin 4.9, Albumin/ Globulin Ratio 1.58, Anion Gap 10, White Blood Count 6.0, Red Blood Count 4.62, Hemoglobin 14.4, Hematocrit 41.3, Mean Corpuscular Volume 89.4, Mean Corpuscular Hemoglobin 31.1, Mean Corpuscular Hemoglobin Concent 34.8, Red Cell Distribution Width 11.7, Platelet Count 200, Neutrophils (%) (Auto) 52.4, Lymphocytes (%) (Auto) 37.8, Monocytes (%) (Auto) 5.7H, Eosinophils (%) (Auto) 1.6, Basophils (%) (Auto) 0.5, Neutrophils # (Auto) 3.1, Lymphocytes # (Auto) 2.3, Monocytes # (Auto) 0.3, Eosinophils # (Auto) 0.1, Basophils # (Auto) 0.0, Glomerular Filtration Rate > 60.0, Large Unclassified Cells # 0.1, Large Unclassified Cells % 2.1, Thyroid Stimulating Hormone (TSH) 0.502 CBC/BMP Laboratory Tests 07/13/16 15:53 Calcium Level 9.7, Aspartate Amino Transf (AST/SGOT) 20, Alanine Aminotransferase (ALT/SGPT) 25, Alkaline Phosphatase 83, Total Bilirubin 1.1 H, Total Protein 8.0, Albumin 4.9, Red Blood Count 4.62, Mean Corpuscular Volume 89.4, Mean Corpuscular Hemoglobin 31.1, Mean Corpuscular Hemoglobin Concent 34.8 , Red Cell Distribution Width 11.7, Neutrophils (%) (Auto) 52.4, Lymphocytes (% ) (Auto) 37.8, Monocytes (%) (Auto) 5.7 H, Eosinophils (%) (Auto) 1.6, Basophils (%) (Auto) 0.5, Neutrophils # (Auto) 3.1, Lymphocytes # (Auto) 2.3, Monocytes # (Auto) 0.3, Eosinophils # (Auto) 0.1, Basophils # (Auto) 0.0 Current Medications Current Medications Medications (Trade) Dose Ordered Sig/Alli Route PRN Reason Start Time Stop Time Status Last Admin Dose Admin Acetaminophen (Tylenol Tab) 650 mg Q6HP PRN PO HEADACHE or DISCOMFORT 07/05/16 14:45 08/04/16 14:44 07/06/16 00:19 Al Hydrox/Mg Hydrox/Simethicone (Mylanta) 30 ml Q4HP PRN PO HEARTBURN/INDIGESTION 07/05/16 14:45 08/04/16 14:44 07/08/16 00:29 Levothyroxine Sodium (Synthroid) 0.088 mg DAILY@06 PO 07/06/16 06:00 08/05/16 05:59 07/14/16 05:50 Lorazepam (Ativan) 1 mg Q6HP PRN PO ANXIETY/AGITATION 07/05/16 14:45 07/19/16 14:44 07/10/16 12:00 Lurasidone HCl (Latuda (Lurasidone)) 60 mg BID PO 07/09/16 21:00 08/08/16 20:59 07/14/16 08:29 Lurasidone HCl (Latuda (Lurasidone)) 60 mg QHS PO 07/08/16 21:00 07/09/16 15:18 DC 07/08/16 21:45 Magnesium Hydroxide (Milk Of Magnesia) 30 ml DAILYPRN PRN PO CONSTIPATION 07/05/16 14:45 08/04/16 14:44 07/07/16 08:14 Olanzapine (ZyPREXA ZYDIS) 5 mg Q4HP PRN PO AGITATION 07/05/16 14:45 08/04/16 14:44 Oxcarbazepine (Trileptal) 150 mg BID PO 07/05/16 21:00 07/08/16 16:18 DC 07/08/16 09:03 Oxcarbazepine (Trileptal) 300 mg BID PO 07/08/16 21:00 08/07/16 20:59 07/14/16 08:28 Risperidone (RisperDAL) 1 mg BID PO 07/05/16 21:00 07/08/16 16:18 DC 07/08/16 09:03 Trazodone HCl (Desyrel) 50 mg QHSP PRN PO INSOMNIA 07/05/16 14:45 08/04/16 14:44 Allergies Coded Allergies: Prednisone (Verified Allergy, Severe, TACHY/DIZZY, 09/12/12) Penicillins (Verified Allergy, Intermediate, RASH/HIVES, 09/12/12) Penicillins Cross Reactors (Verified Allergy, Intermediate, RASH/HIVES, 09/12/12) Sertraline (Verified Adverse Reaction, Intermediate, AGITATION, 09/12/12) ELANA BIRMINGHAM MD Jul 14, 2016 15:23
[2016-07-14 21:59] VITALS: BP 119/71
[2016-07-15] MEDS: LEVOTHYROXINE 0.088 MG TAB (88 MCG) PO SCH (06:12)
[2016-07-15 06:44] VITALS: BP 126/59
[2016-07-15] MEDS: OXcarbazepine 150 MG TAB PO SCH ×2 (07:37→21:24)
[2016-07-15] MEDS: LURASIDONE 20 MG TAB (LATUDA) PO SCH ×2 (07:37→21:23)
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
[2016-07-15 14:04] LABS: HIV SCRN NEGATIVE (NEGATIVE)
[2016-07-15 14:05] LABS: HIV SCRN1 NEGATIVE (NEGATIVE)
[2016-07-15 14:06] LABS: CONTROL LINE INT CTR LINE PRESENT
[2016-07-15 18:20] VITALS: BP 124/68
[2016-07-15] MEDS: MICONAZOLE-7 VAGINAL 2% CREAM 47.7 GM PV SCH (21:24)
[2016-07-16] MEDS: LEVOTHYROXINE 0.088 MG TAB (88 MCG) PO SCH ×3 (06:00→06:57)
[2016-07-16 07:13] VITALS: BP 113/66
[2016-07-16] MEDS: LURASIDONE 20 MG TAB (LATUDA) PO SCH (07:51)
[2016-07-16] MEDS: OXcarbazepine 150 MG TAB PO SCH ×2 (07:51→22:20)
[2016-07-16] MEDS ORDERED: **PENDING PPD ENTRY XX SCH (09:00)
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
[2016-07-16] MEDS ORDERED: TUBERCULIN PPD 5 UNITS/0.1 ML ID ONE (16:15)
[2016-07-16 18:00] VITALS: BP 124/71
[2016-07-16] MEDS ORDERED: TUBERCULIN PPD 5 UNITS/0.1 ML ID SCH (20:00)
[2016-07-16] MEDS: MICONAZOLE-7 VAGINAL 2% CREAM 47.7 GM PV SCH (21:00)
[2016-07-16] MEDS: LURASIDONE HCL 40 MG TAB (LATUDA) PO SCH (21:03)
[2016-07-17 06:38] VITALS: BP 105/61
[2016-07-17] MEDS: LURASIDONE HCL 40 MG TAB (LATUDA) PO SCH ×2 (08:32→20:58)
[2016-07-17] MEDS: OXcarbazepine 150 MG TAB PO SCH ×2 (08:32→20:58)
--- NOTE | 2016-07-17 14:50 | IPNPDOC ---
[facility] Progress Note Progress Note DATE OF SERVICE: 07/17/16 Subjective: Patient reports being med compliant with increased dose of Latuda. She is mildly agitated on interview reporting she feels she doesn't need the higher dose. Patient reports during course of interview ongoing paranoid delusions that her children's safety is in jeopardy in the custody of their father Roshan. She is noted to respond to internal stimuli as if talking with her telepathic partner. Patient then reports that her children are in the custody of a hindu friend of hers, Sari Villegas, a person who she discloses she has not talked to in weeks and can not say how she got the kids from her 's, their father's home. Patient is compliant with current psychotropic regimen and ongoing symptomatology necessitated up titration of the antipsychotic. Patient denies med s/e's. Patient again encouraged to be medication compliant. She will be monitored for clinical response over the weekend. Patient reports improved sleep and appetite. She denies SI/HI and AH/ VH. Objective: VITAL SIGNS: See below. NEW TEST RESULTS: None CURRENT MEDICATIONS: See below. MENTAL STATUS EXAMINATION: Patient is a 35 year-old female who appears her stated age. Patient mildly agitated, but cooperative. Speech: Is rapid in rate, spontaneous. Eye contact: intense; Language skills are intact. Thought processes: Mostly tangential; Thought content: Patient expressing delusional thought that her children are in the custody of a hindu friend of hers, Sari Villegas, a person who she has not talked to in weeks and can not say how she got the kids from her 's home. Description of abnormal or psychotic thoughts: today patient endorses ongoing auditory hallucinations which she interprets as telepathic communication with the same male real estate administrator; Judgment: Poor to Fair; Insight: Poor to Fair; Orientation to time, place and person. Recent and remote memory: Immediate, short-term and long-term memory is intact. Attention span and concentration: Good Language: Normal. Fund of knowledge: Fair Mood: labile; Affect: mildly agitated. SI denies. HI denies Assessment: 1. Bipolar I d/o, MRE manic with psychotic features 2. r/o Delusional D/O, paranoid and persecutory type Plan: ----- -Risperdal discontinued due to intolerable sedation s/e. -Continue Latuda 80mg by mouth BID for mood stabilization and psychosis. -Continue Trileptal 300 mg by mouth twice a day for mood stabilization. -Patient has applied for court hearing requesting immediate discharge. -Process for medication over objection initiated, patient though has been compliant with initial doses of Latuda 80 mg twice a day. Will monitor compliance over the weekend. -Process for transfer to [facility] started. Estimated date of discharge: 07/24/16 TIME SPENT: 30 minutes. Vital Signs Vital Signs Date Time Temp Pulse Resp B/P Pulse Ox O2 Delivery O2 Flow Rate FiO2 07/17/16 06:38 97.6 75 20 105/61 Current Medications Current Medications Acetaminophen (Tylenol Tab) 650 mg Q6HP PRN PO HEADACHE or DISCOMFORT Last administered on 07/06/16 00:19; Start 07/05/16 at 14:45; Stop 08/04/16 at 14:44 Al Hydrox/Mg Hydrox/Simethicone (Mylanta) 30 ml Q4HP PRN PO HEARTBURN/ INDIGESTION Last administered on 07/08/16 00:29; Start 07/05/16 at 14:45; Stop 08/04/16 at 14:44 Levothyroxine Sodium (Synthroid) 0.088 mg DAILY@06 PO Last administered on 06:00; Start 07/06/16 at 06:00; Stop 08/05/16 at 05:59 Lorazepam (Ativan) 1 mg Q6HP PRN PO ANXIETY/AGITATION Last administered on 12:00; Start 07/05/16 at 14:45; Stop 07/19/16 at 14:44 Lurasidone HCl (Latuda (Lurasidone)) 60 mg BID PO Last administered on 07:51; Start 07/09/16 at 21:00; Stop 07/16/16 at 09:07; Status DC Lurasidone HCl (Latuda (Lurasidone)) 60 mg QHS PO Last administered on 21:45; Start 07/08/16 at 21:00; Stop 07/09/16 at 15:18; Status DC Lurasidone HCl (Latuda) 80 mg BID PO Last administered on 07/17/16 08:32; Start 07/16/16 at 21:00; Stop 08/15/16 at 20:59 Magnesium Hydroxide (Milk Of Magnesia) 30 ml DAILYPRN PRN PO CONSTIPATION Last administered on 07/07/16 08:14; Start 07/05/16 at 14:45; Stop 08/04/16 at 14:44 Miconazole Nitrate (Monistat-7) 1 APPLICATORFUL QHS PV Last administered on 07/15 21:24; Start 07/15/16 at 21:00; Stop 07/22/16 at 20:59 Non-Formulary Medication ( See Comment Field Below ) SEE COMMENTS SECTION 1T @10 XX ; Start 07/18/16 at 10:00; Stop 07/18/16 at 10:00; Status DC Non-Formulary Medication ( See Comment Field Below ) SEE LABEL COMMENTS DAILY XX ; Start 07/16/16 at 09:00; Stop 07/16/16 at 17:15; Status DC Non-Formulary Medication ( See Comment Field Below ) SEE LABEL COMMENTS SECTION 1T@20 XX ; Start 07/18/16 at 20:00; Stop 07/19/16 at 19:59 Olanzapine (ZyPREXA ZYDIS) 5 mg Q4HP PRN PO AGITATION; Start 07/05/16 at 14 :45; Stop 08/04/16 at 14:44 Oxcarbazepine (Trileptal) 150 mg BID PO Last administered on 07/08/16 09:03; Start 07/05/16 at 21:00; Stop 07/08/16 at 16:18; Status DC Oxcarbazepine (Trileptal) 300 mg BID PO Last administered on 07/17/16 08:32; Start 07/08/16 at 21:00; Stop 08/07/16 at 20:59 Risperidone (RisperDAL) 1 mg BID PO Last administered on 07/08/16 09:03; Start 07/05/16 at 21:00; Stop 07/08/16 at 16:18; Status DC Trazodone HCl (Desyrel) 50 mg QHSP PRN PO INSOMNIA; Start 07/05/16 at 14:45; Stop 08/04/16 at 14:44 Tuberculin PPD (Aplisol, Ppd) 5 units 1T@20 ID ; Start 07/16/16 at 20:00; Stop at 20:01; Status DC Allergies Coded Allergies: Prednisone (Verified Allergy, Severe, TACHY/DIZZY, 09/12/12) Penicillins (Verified Allergy, Intermediate, RASH/HIVES, 09/12/12) Penicillins Cross Reactors (Verified Allergy, Intermediate, RASH/HIVES, 09/12/12) Sertraline (Verified Adverse Reaction, Intermediate, AGITATION, 09/12/12) ELANA BIRMINGHAM MD Jul 17, 2016 14:50
--- NOTE | 2016-07-17 14:51 | IPNPDOC ---
[facility] Progress Note Progress Note DATE OF SERVICE: 07/16/16 Subjective: Patient is initially calm and cooperative with interview today. Patient reports she had been holding back expressing paranoid delusions in an attempt to discharge home earlier. Patient is compliant with current psychotropic regimen, but patient's ongoing symptomatology necessitates up titration of antipsychotic. Patient has applied for court hearing requesting immediate discharge. Process for medication over objection initiated as patient has reported declining meds as she feels meds do not need dose increase. Patient informed of dose increase and informed of application for hearing guarding medications over objection. Patient again encouraged to be medication compliant. Patient reports improved sleep and appetite. She denies SI/HI and AH/ VH. Objective: VITAL SIGNS: See below. NEW TEST RESULTS: None CURRENT MEDICATIONS: See below. MENTAL STATUS EXAMINATION: Patient is a 35 year-old female who appears her stated age. Patient calm and cooperative in behavior. She's in NAD. Speech: Is RRR and spontaneous. Eye contact: intense, appropriate; Language skills are intact. Thought processes: Mostly linear; Thought content: Patient reports she had been holding back expressing paranoid delusions in an attempt to discharge home earlier; Description of abnormal or psychotic thoughts: today patient endorses ongoing auditory hallucinations; Judgment: Poor to Fair; Insight: Poor to Fair; Orientation to time, place and person. Recent and remote memory: Immediate, short-term and long-term memory is intact. Attention span and concentration: Good Language: Normal. Fund of knowledge: Fair Mood: dysthymic Affect: mildly depressed. SI denies. HI denies Assessment: 1. Bipolar I d/o, MRE manic with psychotic features 2. Delusional D/O, paranoid and persecutory type Plan: ----- -Risperdal discontinued due to intolerable sedation s/e. -Will increase Latuda from 60mg to 80mg by mouth BID for mood stabilization and psychosis, due to improved, but persistent psychotic symptoms. -Continue Trileptal 300 mg by mouth twice a day for mood stabilization. -Patient has applied for court hearing requesting immediate discharge. -Process for medication over objection initiated as patient has reported declining meds as she feels meds do not need dose increase. Estimated date of discharge: 07/22/16 TIME SPENT: 30 minutes. Vital Signs Vital Signs Date Time Temp Pulse Resp B/P Pulse Ox O2 Delivery O2 Flow Rate FiO2 07/17/16 06:38 97.6 75 20 105/61 Current Medications Current Medications Acetaminophen (Tylenol Tab) 650 mg Q6HP PRN PO HEADACHE or DISCOMFORT Last administered on 07/06/16 00:19; Start 07/05/16 at 14:45; Stop 08/04/16 at 14:44 Al Hydrox/Mg Hydrox/Simethicone (Mylanta) 30 ml Q4HP PRN PO HEARTBURN/ INDIGESTION Last administered on 07/08/16 00:29; Start 07/05/16 at 14:45; Stop 08/04/16 at 14:44 Levothyroxine Sodium (Synthroid) 0.088 mg DAILY@06 PO Last administered on 06:00; Start 07/06/16 at 06:00; Stop 08/05/16 at 05:59 Lorazepam (Ativan) 1 mg Q6HP PRN PO ANXIETY/AGITATION Last administered on 12:00; Start 07/05/16 at 14:45; Stop 07/19/16 at 14:44 Lurasidone HCl (Latuda (Lurasidone)) 60 mg BID PO Last administered on 07:51; Start 07/09/16 at 21:00; Stop 07/16/16 at 09:07; Status DC Lurasidone HCl (Latuda (Lurasidone)) 60 mg QHS PO Last administered on 21:45; Start 07/08/16 at 21:00; Stop 07/09/16 at 15:18; Status DC Lurasidone HCl (Latuda) 80 mg BID PO Last administered on 07/17/16 08:32; Start 07/16/16 at 21:00; Stop 08/15/16 at 20:59 Magnesium Hydroxide (Milk Of Magnesia) 30 ml DAILYPRN PRN PO CONSTIPATION Last administered on 07/07/16 08:14; Start 07/05/16 at 14:45; Stop 08/04/16 at 14:44 Miconazole Nitrate (Monistat-7) 1 APPLICATORFUL QHS PV Last administered on 07/15 21:24; Start 07/15/16 at 21:00; Stop 07/22/16 at 20:59 Non-Formulary Medication ( See Comment Field Below ) SEE COMMENTS SECTION 1T @10 XX ; Start 07/18/16 at 10:00; Stop 07/18/16 at 10:00; Status DC Non-Formulary Medication ( See Comment Field Below ) SEE LABEL COMMENTS DAILY XX ; Start 07/16/16 at 09:00; Stop 07/16/16 at 17:15; Status DC Non-Formulary Medication ( See Comment Field Below ) SEE LABEL COMMENTS SECTION 1T@20 XX ; Start 07/18/16 at 20:00; Stop 07/19/16 at 19:59 Olanzapine (ZyPREXA ZYDIS) 5 mg Q4HP PRN PO AGITATION; Start 07/05/16 at 14 :45; Stop 08/04/16 at 14:44 Oxcarbazepine (Trileptal) 150 mg BID PO Last administered on 07/08/16 09:03; Start 07/05/16 at 21:00; Stop 07/08/16 at 16:18; Status DC Oxcarbazepine (Trileptal) 300 mg BID PO Last administered on 07/17/16 08:32; Start 07/08/16 at 21:00; Stop 08/07/16 at 20:59 Risperidone (RisperDAL) 1 mg BID PO Last administered on 07/08/16 09:03; Start 07/05/16 at 21:00; Stop 07/08/16 at 16:18; Status DC Trazodone HCl (Desyrel) 50 mg QHSP PRN PO INSOMNIA; Start 07/05/16 at 14:45; Stop 08/04/16 at 14:44 Tuberculin PPD (Aplisol, Ppd) 5 units 1T@20 ID ; Start 07/16/16 at 20:00; Stop at 20:01; Status DC Allergies Coded Allergies: Prednisone (Verified Allergy, Severe, TACHY/DIZZY, 09/12/12) Penicillins (Verified Allergy, Intermediate, RASH/HIVES, 09/12/12) Penicillins Cross Reactors (Verified Allergy, Intermediate, RASH/HIVES, 09/12/12) Sertraline (Verified Adverse Reaction, Intermediate, AGITATION, 09/12/12) ELANA BIRMINGHAM MD Jul 17, 2016 14:51
[2016-07-17 18:00] VITALS: BP 116/71
[2016-07-17] MEDS: MICONAZOLE-7 VAGINAL 2% CREAM 47.7 GM PV SCH (21:00)
[2016-07-18 06:18] VITALS: BP 91/54
[2016-07-18] MEDS: LEVOTHYROXINE 0.088 MG TAB (88 MCG) PO SCH (06:18)
[2016-07-18] MEDS: OXcarbazepine 150 MG TAB PO SCH ×2 (08:16→21:10)
[2016-07-18] MEDS: LURASIDONE HCL 40 MG TAB (LATUDA) PO SCH ×2 (08:16→21:10)
[2016-07-18] MEDS ORDERED: PPD DOCUMENTATION ENTRY MISC XX SCH ×2 (10:00→20:00)
[2016-07-18 18:36] VITALS: BP 120/67
[2016-07-18] MEDS: MICONAZOLE-7 VAGINAL 2% CREAM 47.7 GM PV SCH (21:00)
[2016-07-19] MEDS: LEVOTHYROXINE 0.088 MG TAB (88 MCG) PO SCH (05:59)
[2016-07-19 06:35] VITALS: BP 128/70
[2016-07-19] MEDS: OXcarbazepine 150 MG TAB PO SCH ×2 (08:27→20:41)
[2016-07-19] MEDS: LURASIDONE HCL 40 MG TAB (LATUDA) PO SCH ×2 (08:27→20:41)
[2016-07-19 18:00] VITALS: BP 114/70
[2016-07-19] MEDS: MICONAZOLE-7 VAGINAL 2% CREAM 47.7 GM PV SCH (20:39)
[2016-07-20 06:22] VITALS: BP 106/62
[2016-07-20] MEDS: LEVOTHYROXINE 0.088 MG TAB (88 MCG) PO SCH (06:33)
--- NOTE | 2016-07-20 08:51 | IPNPDOC ---
[facility] Progress Note Progress Note DATE OF SERVICE: 07/20/16 Subjective: Patient is notably more calm and is cooperative with interview. Patient showing benefit to increased dose of Latuda. Patient reports ongoing auditory hallucinations which she believes is telepathic communication with a male. Patient reports this voice is the secretary of state who escorted her into the ER for psychiatric evaluation four years ago. Patient reports the voice is less intrusive and content less distressing in nature. She reports his voice informs her when her children are in danger. Patient with notable improvement to manic and psychotic symptoms. Paranoid and persecutory ideations less intrusive and distressing. Patient encouraged to be medication compliant. Patient reports improved sleep and appetite. She denies SI/HI and VH. Objective: VITAL SIGNS: See below. NEW TEST RESULTS: None CURRENT MEDICATIONS: See below. MENTAL STATUS EXAMINATION: Patient is a 36 year-old female who appears her stated age. Patient noticeably more calm and cooperative. She's in NAD. Speech: Is RRR and spontaneous. Eye contact: appropriate; Language skills are intact. Thought processes: Mostly linear; Thought content: Patient reports less intense and distressing thoughts that her children are in danger; Description of abnormal or psychotic thoughts: today patient endorses ongoing auditory hallucinations which she interprets as telepathic conversations; Judgment: Poor to Fair; Insight: Poor to Fair; Orientation to time, place and person. Recent and remote memory: Immediate, short-term and long-term memory is intact. Attention span and concentration: Good Language: Normal. Fund of knowledge: Fair; Mood:dysthymic; Affect: broad. SI denies. HI denies Assessment: 1. Bipolar I d/o, MRE manic with psychotic features 2. Delusional D/O, paranoid and persecutory type Plan: ----- -Risperdal discontinued due to intolerable sedation s/e. -Continue Latuda at 80mg by mouth BID for mood stabilization and psychosis. -Continue Trileptal 300 mg by mouth twice a day for mood stabilization. -Patient with notable improvement to manic and psychotic symptoms. Paranoid and persecutory ideations less intrusive and distressing. -Patient has applied for court hearing requesting immediate discharge. Estimated date of discharge: 07/23/16 TIME SPENT: 30 minutes. Vital Signs Vital Signs Date Time Temp Pulse Resp B/P Pulse Ox O2 Delivery O2 Flow Rate FiO2 07/20/16 06:22 97.6 76 18 106/62 Current Medications Current Medications Acetaminophen (Tylenol Tab) 650 mg Q6HP PRN PO HEADACHE or DISCOMFORT Last administered on 07/06/16 00:19; Start 07/05/16 at 14:45; Stop 08/04/16 at 14:44 Al Hydrox/Mg Hydrox/Simethicone (Mylanta) 30 ml Q4HP PRN PO HEARTBURN/ INDIGESTION Last administered on 07/08/16 00:29; Start 07/05/16 at 14:45; Stop 08/04/16 at 14:44 Levothyroxine Sodium (Synthroid) 0.088 mg DAILY@06 PO Last administered on 07/20 06:33; Start 07/06/16 at 06:00; Stop 08/05/16 at 05:59 Lorazepam (Ativan) 1 mg Q6HP PRN PO ANXIETY/AGITATION Last administered on 12:00; Start 07/05/16 at 14:45; Stop 07/26/16 at 14:44 Lurasidone HCl (Latuda (Lurasidone)) 60 mg BID PO Last administered on 07:51; Start 07/09/16 at 21:00; Stop 07/16/16 at 09:07; Status DC Lurasidone HCl (Latuda (Lurasidone)) 60 mg QHS PO Last administered on 21:45; Start 07/08/16 at 21:00; Stop 07/09/16 at 15:18; Status DC Lurasidone HCl (Latuda) 80 mg BID PO Last administered on 07/19/16 20:41; Start 07/16/16 at 21:00; Stop 08/15/16 at 20:59 Magnesium Hydroxide (Milk Of Magnesia) 30 ml DAILYPRN PRN PO CONSTIPATION Last administered on 07/07/16 08:14; Start 07/05/16 at 14:45; Stop 08/04/16 at 14:44 Miconazole Nitrate (Monistat-7) 1 APPLICATORFUL QHS PV Last administered on 07/15 21:24; Start 07/15/16 at 21:00; Stop 07/22/16 at 20:59 Non-Formulary Medication ( See Comment Field Below ) SEE COMMENTS SECTION 1T @10 XX ; Start 07/18/16 at 10:00; Stop 07/18/16 at 10:00; Status DC Non-Formulary Medication ( See Comment Field Below ) SEE LABEL COMMENTS DAILY XX ; Start 07/16/16 at 09:00; Stop 07/16/16 at 17:15; Status DC Non-Formulary Medication ( See Comment Field Below ) SEE LABEL COMMENTS SECTION 1T@20 XX ; Start 07/18/16 at 20:00; Stop 07/19/16 at 19:59; Status DC Olanzapine (ZyPREXA ZYDIS) 5 mg Q4HP PRN PO AGITATION; Start 07/05/16 at 14 :45; Stop 08/04/16 at 14:44 Oxcarbazepine (Trileptal) 150 mg BID PO Last administered on 07/08/16 09:03; Start 07/05/16 at 21:00; Stop 07/08/16 at 16:18; Status DC Oxcarbazepine (Trileptal) 300 mg BID PO Last administered on 07/19/16 20:41; Start 07/08/16 at 21:00; Stop 08/07/16 at 20:59 Risperidone (RisperDAL) 1 mg BID PO Last administered on 07/08/16 09:03; Start 07/05/16 at 21:00; Stop 07/08/16 at 16:18; Status DC Trazodone HCl (Desyrel) 50 mg QHSP PRN PO INSOMNIA; Start 07/05/16 at 14:45; Stop 08/04/16 at 14:44 Tuberculin PPD (Aplisol, Ppd) 5 units 1T@20 ID ; Start 07/16/16 at 20:00; Stop at 20:01; Status DC Allergies Coded Allergies: Prednisone (Verified Allergy, Severe, TACHY/DIZZY, 09/12/12) Penicillins (Verified Allergy, Intermediate, RASH/HIVES, 09/12/12) Penicillins Cross Reactors (Verified Allergy, Intermediate, RASH/HIVES, 09/12/12) Sertraline (Verified Adverse Reaction, Intermediate, AGITATION, 09/12/12) ELANA BIRMINGHAM MD Jul 20, 2016 08:51
[2016-07-20] MEDS: LURASIDONE HCL 40 MG TAB (LATUDA) PO SCH ×2 (09:22→21:00)
[2016-07-20] MEDS: OXcarbazepine 150 MG TAB PO SCH ×2 (10:51→21:00)
[2016-07-20] MEDS ORDERED: INFLUENZA QUADRIVALENT PF VACCINE 0.5ML SYRINGE/VIAL (90686) IM ONE (13:00)
[2016-07-20 18:00] VITALS: BP 121/66
[2016-07-20] MEDS: MICONAZOLE-7 VAGINAL 2% CREAM 47.7 GM PV SCH (21:00)
[2016-07-21] MEDS: LEVOTHYROXINE 0.088 MG TAB (88 MCG) PO SCH (06:00)
[2016-07-21 07:14] VITALS: BP 113/70
--- NOTE | 2016-07-21 08:28 | IPNPDOC ---
[facility] Progress Note Progress Note DATE OF SERVICE: 07/21/16 Subjective: Patient is mildly agitated but cooperative with interview today. Patient had shown benefit on increased dose of Latuda, but has over the last 24hrs been medication non-compliant. Patient reports she has been scared and taking medications out of fear. She reports that she has found inner strength and knows that telepathy is real. He reports she is not sick and will no longer take medications. Patient reports new paranoid ideations that her mother and children presented to the hospital last night for a visit, but were not allowed to come up to see her. Patient also reports no longer being to her current Roshan Clemente. Patient reports that her new "in God's eyes", is the state game protector who she has telepathic conversations with. Patient has applied for court hearing requesting immediate discharge. Process for medication over objection initiated. Patient informed that the process for transfer to [facility] has been initiated. Patient informed of application for hearing regarding medications administration over objection. Patient again encouraged to be medication compliant. Patient reports fair sleep and appetite. She denies SI/HI and VH. Objective: VITAL SIGNS: See below. NEW TEST RESULTS: None CURRENT MEDICATIONS: See below. MENTAL STATUS EXAMINATION: Patient is a 35 year-old female who appears her stated age. Patient mildly agitated but cooperative in behavior. She 's in NAD. Speech: Is RRR and spontaneous. Eye contact: intense; Language skills are intact. Thought processes: Mostly linear; Thought content: Patient reports she has been scared and taking medications out of fear. She reports that she has found inner strength and knows that telepathy is real. He reports she is not sick and will no longer take medications; Description of abnormal or psychotic thoughts: today patient endorses ongoing auditory hallucinations which she interprets as telepathic conversations; Judgment: Poor; Insight: Poor ; Orientation to time, place and person. Recent and remote memory: Immediate, short-term and long-term memory is intact. Attention span and concentration: Good Language: Normal. Fund of knowledge: Fair Mood: dysthymic Affect: mildly agitated. SI denies. HI denies Assessment: 1. Bipolar I d/o, MRE manic with psychotic features 2. Delusional D/O, paranoid and persecutory type Plan: ----- -Risperdal discontinued due to intolerable sedation s/e. -Continue Latuda at 80mg by mouth BID for mood stabilization and psychosis. -Continue Trileptal 300 mg by mouth twice a day for mood stabilization. -Patient with notable improvement, but has been noncompliant over the last 24 hours reporting the medication regimen is causing her to lose her telepathic abilities. -Patient has applied for court hearing requesting immediate discharge. -Process for medication over objection initiated as patient has been declining meds and has made statements that she is "not sick", "telepathy is real". -Process to transfer to [facility] initiated. Estimated date of discharge: upon her admission to [facility] TIME SPENT: 30 minutes. Vital Signs Vital Signs Date Time Temp Pulse Resp B/P Pulse Ox O2 Delivery O2 Flow Rate FiO2 07/21/16 07:14 98.4 77 18 113/70 07/20/16 18:00 Room Air Current Medications Current Medications Acetaminophen (Tylenol Tab) 650 mg Q6HP PRN PO HEADACHE or DISCOMFORT Last administered on 07/06/16 00:19; Start 07/05/16 at 14:45; Stop 08/04/16 at 14:44 Al Hydrox/Mg Hydrox/Simethicone (Mylanta) 30 ml Q4HP PRN PO HEARTBURN/ INDIGESTION Last administered on 07/08/16 00:29; Start 07/05/16 at 14:45; Stop 08/04/16 at 14:44 Levothyroxine Sodium (Synthroid) 0.088 mg DAILY@06 PO Last administered on 07/20 06:33; Start 07/06/16 at 06:00; Stop 08/05/16 at 05:59 Lorazepam (Ativan) 1 mg Q6HP PRN PO ANXIETY/AGITATION Last administered on 12:00; Start 07/05/16 at 14:45; Stop 07/26/16 at 14:44 Lurasidone HCl (Latuda (Lurasidone)) 60 mg BID PO Last administered on 07:51; Start 07/09/16 at 21:00; Stop 07/16/16 at 09:07; Status DC Lurasidone HCl (Latuda (Lurasidone)) 60 mg QHS PO Last administered on 21:45; Start 07/08/16 at 21:00; Stop 07/09/16 at 15:18; Status DC Lurasidone HCl (Latuda) 80 mg BID PO Last administered on 07/20/16 09:22; Start 07/16/16 at 21:00; Stop 08/15/16 at 20:59 Magnesium Hydroxide (Milk Of Magnesia) 30 ml DAILYPRN PRN PO CONSTIPATION Last administered on 07/07/16 08:14; Start 07/05/16 at 14:45; Stop 08/04/16 at 14:44 Miconazole Nitrate (Monistat-7) 1 APPLICATORFUL QHS PV Last administered on 07/15 21:24; Start 07/15/16 at 21:00; Stop 07/22/16 at 20:59 Non-Formulary Medication ( See Comment Field Below ) SEE COMMENTS SECTION 1T @10 XX ; Start 07/18/16 at 10:00; Stop 07/18/16 at 10:00; Status DC Non-Formulary Medication ( See Comment Field Below ) SEE LABEL COMMENTS DAILY XX ; Start 07/16/16 at 09:00; Stop 07/16/16 at 17:15; Status DC Non-Formulary Medication ( See Comment Field Below ) SEE LABEL COMMENTS SECTION 1T@20 XX ; Start 07/18/16 at 20:00; Stop 07/19/16 at 19:59; Status DC Olanzapine (ZyPREXA ZYDIS) 5 mg Q4HP PRN PO AGITATION; Start 07/05/16 at 14 :45; Stop 08/04/16 at 14:44 Oxcarbazepine (Trileptal) 150 mg BID PO Last administered on 07/08/16 09:03; Start 07/05/16 at 21:00; Stop 07/08/16 at 16:18; Status DC Oxcarbazepine (Trileptal) 300 mg BID PO Last administered on 07/20/16 10:51; Start 07/08/16 at 21:00; Stop 08/07/16 at 20:59 Risperidone (RisperDAL) 1 mg BID PO Last administered on 07/08/16t 09:03; Start 07/05/16 at 21:00; Stop 07/08/16 at 16:18; Status DC Trazodone HCl (Desyrel) 50 mg QHSP PRN PO INSOMNIA; Start 07/05/16 at 14:45; Stop 08/04/16 at 14:44 Tuberculin PPD (Aplisol, Ppd) 5 units 1T@20 ID ; Start 07/16/16 at 20:00; Stop at 20:01; Status DC Allergies Coded Allergies: Prednisone (Verified Allergy, Severe, TACHY/DIZZY, 09/12/12) Penicillins (Verified Allergy, Intermediate, RASH/HIVES, 09/12/12) Penicillins Cross Reactors (Verified Allergy, Intermediate, RASH/HIVES, 09/12/12) Sertraline (Verified Adverse Reaction, Intermediate, AGITATION, 09/12/12) ELANA BIRMINGHAM MD Jul 21, 2016 08:28
[2016-07-21] MEDS: LURASIDONE HCL 40 MG TAB (LATUDA) PO SCH ×2 (09:00→20:53)
[2016-07-21] MEDS: OXcarbazepine 150 MG TAB PO SCH ×2 (09:00→20:53)
[2016-07-21 18:00] VITALS: BP 111/63
[2016-07-21] MEDS: MICONAZOLE-7 VAGINAL 2% CREAM 47.7 GM PV SCH (20:53)
[2016-07-22] MEDS: LEVOTHYROXINE 0.088 MG TAB (88 MCG) PO SCH (06:04)
[2016-07-22 06:46] VITALS: BP 101/73
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
[2016-07-22] MEDS: OXcarbazepine 150 MG TAB PO SCH ×2 (09:00→21:00)
[2016-07-22] MEDS: LURASIDONE HCL 40 MG TAB (LATUDA) PO SCH ×2 (09:00→21:00)
[2016-07-22 18:00] VITALS: BP 109/67
[2016-07-23] MEDS: LEVOTHYROXINE 0.088 MG TAB (88 MCG) PO SCH (06:14)
[2016-07-23 07:00] VITALS: BP 96/52
[2016-07-23] MEDS: LURASIDONE HCL 40 MG TAB (LATUDA) PO SCH ×2 (09:00→21:00)
[2016-07-23] MEDS: OXcarbazepine 150 MG TAB PO SCH ×2 (09:00→21:00)
[2016-07-23 18:00] VITALS: BP 117/52
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
--- NOTE | 2016-07-24 03:05 | IPNPDOC ---
[facility] Progress Note Progress Note DATE OF SERVICE: 07/24/16 SUBJECTIVE: Patient focused on discharge throughout this interview. Patient is linear in TP. Patient continues to be med non-compliant. She continues to express paranoid and persecutory delusions as well as respond to internal stimuli, AHs which she perceives as telepathic communication. Patient reports fair sleep and appetite. She denies SI/HI and VH. OBJECTIVE: Meds - See below. New labs - See below. MSE: 36yo female, in home clothes, fair hygeine, in NAD behavior - irritable, but cooperative eyesight - intense mood - good affect - restrictive TP - linear TC - focused on discharge Perceptions - ongoing paranoid and persecutory ideations Orientation - A&Ox3 Insight - poor Judgement - poor Impulse control - fair ASSESSMENT: 1. Bipolar 1 d/o MRE manic w/PFs 2. Delsusional d/o, persecutory and paranoid type Plan: Continue to offer Latuda and Trileptal as written. Hearing for meds over objection next week. Process for transfer to [place] initiated. Vital Signs Vital Signs Date Time Temp Pulse Resp B/P Pulse Ox O2 Delivery O2 Flow Rate FiO2 07/23/16 18:00 98.4 73 18 117/52 07/20/16 18:00 Room Air Current Medications Current Medications Acetaminophen (Tylenol Tab) 650 mg Q6HP PRN PO HEADACHE or DISCOMFORT Last administered on 07/06/16 00:19; Start 07/05/16 at 14:45; Stop 08/04/16 at 14:44 Al Hydrox/Mg Hydrox/Simethicone (Mylanta) 30 ml Q4HP PRN PO HEARTBURN/ INDIGESTION Last administered on 07/08/16 00:29; Start 07/05/16 at 14:45; Stop 08/04/16 at 14:44 Levothyroxine Sodium (Synthroid) 0.088 mg DAILY@06 PO Last administered on 07/23 06:14; Start 07/06/16 at 06:00; Stop 08/05/16 at 05:59 Lorazepam (Ativan) 1 mg Q6HP PRN PO ANXIETY/AGITATION Last administered on 12:00; Start 07/05/16 at 14:45; Stop 07/26/16 at 14:44 Lurasidone HCl (Latuda (Lurasidone)) 60 mg BID PO Last administered on 07:51; Start 07/09/16 at 21:00; Stop 07/16/16 at 09:07; Status DC Lurasidone HCl (Latuda (Lurasidone)) 60 mg QHS PO Last administered on 21:45; Start 07/08/16 at 21:00; Stop 07/09/16 at 15:18; Status DC Lurasidone HCl (Latuda) 80 mg BID PO Last administered on 07/20/16 09:22; Start 07/16/16 at 21:00; Stop 08/15/16 at 20:59 Magnesium Hydroxide (Milk Of Magnesia) 30 ml DAILYPRN PRN PO CONSTIPATION Last administered on 07/07/16 08:14; Start 07/05/16 at 14:45; Stop 08/04/16 at 14:44 Miconazole Nitrate (Monistat-7) 1 APPLICATORFUL QHS PV Last administered on 07/15 21:24; Start 07/15/16 at 21:00; Stop 07/22/16 at 17:04; Status DC Non-Formulary Medication ( See Comment Field Below ) SEE COMMENTS SECTION 1T @10 XX ; Start 07/18/16 at 10:00; Stop 07/18/16 at 10:00; Status DC Non-Formulary Medication ( See Comment Field Below ) SEE LABEL COMMENTS DAILY XX ; Start 07/16/16 at 09:00; Stop 07/16/16 at 17:15; Status DC Non-Formulary Medication ( See Comment Field Below ) SEE LABEL COMMENTS SECTION 1T@20 XX ; Start 07/18/16 at 20:00; Stop 07/19/16 at 19:59; Status DC Olanzapine (ZyPREXA ZYDIS) 5 mg Q4HP PRN PO AGITATION; Start 07/05/16 at 14 :45; Stop 08/04/16 at 14:44 Oxcarbazepine (Trileptal) 150 mg BID PO Last administered on 07/08/16 09:03; Start 07/05/16 at 21:00; Stop 2/1/17 at 16:18; Status DC Oxcarbazepine (Trileptal) 300 mg BID PO Last administered on 07/20/16t 10:51; Start 07/08/16 at 21:00; Stop 08/07/16 at 20:59 Risperidone (RisperDAL) 1 mg BID PO Last administered on 07/08/16t 09:03; Start 07/05/16 at 21:00; Stop 07/08/16 at 16:18; Status DC Trazodone HCl (Desyrel) 50 mg QHSP PRN PO INSOMNIA; Start 07/05/16 at 14:45; Stop 08/04/16 at 14:44 Tuberculin PPD (Aplisol, Ppd) 5 units 1T@20 ID ; Start 07/16/16 at 20:00; Stop at 20:01; Status DC Allergies Coded Allergies: Prednisone (Verified Allergy, Severe, TACHY/DIZZY, 09/12/12) Penicillins (Verified Allergy, Intermediate, RASH/HIVES, 09/12/12) Penicillins Cross Reactors (Verified Allergy, Intermediate, RASH/HIVES, 09/12/12) Sertraline (Verified Adverse Reaction, Intermediate, AGITATION, 09/12/12) ELANA BIRMINGHAM MD Jul 24, 2016 03:05
[2016-07-24] MEDS: LEVOTHYROXINE 0.088 MG TAB (88 MCG) PO SCH (05:41)
[2016-07-24 06:20] VITALS: BP 103/79
[2016-07-24] MEDS: OXcarbazepine 150 MG TAB PO SCH ×2 (09:00→21:00)
[2016-07-24] MEDS: LURASIDONE HCL 40 MG TAB (LATUDA) PO SCH ×2 (09:00→21:00)
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
[2016-07-24 18:00] VITALS: BP 120/77
[2016-07-25 06:55] VITALS: BP 107/65
[2016-07-25] MEDS: LEVOTHYROXINE 0.088 MG TAB (88 MCG) PO SCH (07:43)
[2016-07-25] MEDS: LURASIDONE HCL 40 MG TAB (LATUDA) PO SCH ×2 (08:57→21:00)
[2016-07-25] MEDS: OXcarbazepine 150 MG TAB PO SCH ×2 (08:57→21:00)
[2016-07-25 18:00] VITALS: BP 117/56
[2016-07-26] MEDS: LEVOTHYROXINE 0.088 MG TAB (88 MCG) PO SCH (06:35)
[2016-07-26 06:49] VITALS: BP 97/54
[2016-07-26] MEDS: OXcarbazepine 150 MG TAB PO SCH ×2 (09:42→21:18)
[2016-07-26] MEDS: LURASIDONE HCL 40 MG TAB (LATUDA) PO SCH ×2 (09:42→21:18)
[2016-07-26 18:00] VITALS: BP 121/75
[2016-07-27 06:43] VITALS: BP 113/61
[2016-07-27] MEDS: LEVOTHYROXINE 0.088 MG TAB (88 MCG) PO SCH (06:52)
[2016-07-27] MEDS: LURASIDONE HCL 40 MG TAB (LATUDA) PO SCH ×2 (08:08→21:00)
[2016-07-27] MEDS: OXcarbazepine 150 MG TAB PO SCH ×2 (08:08→21:00)
--- NOTE | 2016-07-27 13:13 | IPNPDOC ---
[facility] Progress Note Progress Note DATE OF SERVICE: 07/27/16 SUBJECTIVE: Patient focused on details from her telepathic conversations. She reports told by her to be , now called Dayne; previously called Omer Shi, Brandyn Fletcher, that her daughter is in the emergency department downstairs. Patient is agitated frantically focused on calling the emergency department. Patient also reported that her mother was in the emergency department with Dayne and her daughter. Patient allowed this provider to again call her mother Gianna Roth #[phone]. His mother reported she was in [place] and [facility] emergency department. Patient and her mother talked on the phone for a while. Patient insisting her mother told this provider that she and her carry-on telepathic conversations. Mother reported only that she at times thinks of person, feeling a type of telepathic communication, as many times this person many times soon calls. Patient discussed with mother she is only taking the medications so not to be transferred to [place]. Patient stated to her mother that she would discontinue medications as she feels the meds are burning out her telepathic receptors. Patient has been medication compliant since Wednesday. She denies medication side effects. She continues to express paranoid and persecutory delusions as well as respond to internal stimuli, AHs which she perceives as telepathic communication. Patient reports fair sleep and appetite. She denies SI/HI and VH. OBJECTIVE: Meds - See below. New labs - See below. MSE: 36yo female, in home clothes, fair hygeine, in NAD behavior -mildly agitated, but cooperative eyesight - intense mood - angry affect -mildly agitated TP - irrational TC - believes her daughter is in the emergency room, patient focused on calling the ER Perceptions - ongoing paranoid and persecutory ideations, more consumed with details of telepathic communications Orientation - A&Ox3 Insight - poor Judgement - poor Impulse control - fair ASSESSMENT: 1. Bipolar 1 d/o MRE manic w/PFs 2. Delsusional d/o, persecutory and paranoid type Plan: -Patient has become med compliant over the weekend. Continue Psychotropic regimen as currently written. -Hearing for meds over objection next week. -Process for transfer to [place] initiated. TIME SPENT: 30 minutes Vital Signs Vital Signs Date Time Temp Pulse Resp B/P Pulse Ox O2 Delivery O2 Flow Rate FiO2 07/27/16 06:43 99.0 101 16 113/61 Current Medications Current Medications Acetaminophen (Tylenol Tab) 650 mg Q6HP PRN PO HEADACHE or DISCOMFORT Last administered on 07/06/16 00:19; Start 07/05/16 at 14:45; Stop 08/04/16 at 14:44 Al Hydrox/Mg Hydrox/Simethicone (Mylanta) 30 ml Q4HP PRN PO HEARTBURN/ INDIGESTION Last administered on 07/08/16 00:29; Start 07/05/16 at 14:45; Stop 08/04/16 at 14:44 Levothyroxine Sodium (Synthroid) 0.088 mg DAILY@06 PO Last administered on 07/27 06:52; Start 07/06/16 at 06:00; Stop 08/05/16 at 05:59 Lorazepam (Ativan) 1 mg Q6HP PRN PO ANXIETY/AGITATION Last administered on 12:00; Start 07/05/16 at 14:45; Stop 08/01/16 at 14:44 Lurasidone HCl (Latuda (Lurasidone)) 60 mg BID PO Last administered on 07:51; Start 07/09/16 at 21:00; Stop 07/16/16 at 09:07; Status DC Lurasidone HCl (Latuda (Lurasidone)) 60 mg QHS PO Last administered on 21:45; Start 07/08/16 at 21:00; Stop 07/09/16 at 15:18; Status DC Lurasidone HCl (Latuda) 80 mg BID PO Last administered on 07/27/16 08:08; Start 07/16/16 at 21:00; Stop 08/15/16 at 20:59 Magnesium Hydroxide (Milk Of Magnesia) 30 ml DAILYPRN PRN PO CONSTIPATION Last administered on 07/07/16 08:14; Start 07/05/16 at 14:45; Stop 08/04/16 at 14:44 Miconazole Nitrate (Monistat-7) 1 APPLICATORFUL QHS PV Last administered on 07/15 21:24; Start 07/15/16 at 21:00; Stop 07/22/16 at 17:04; Status DC Non-Formulary Medication ( See Comment Field Below ) SEE COMMENTS SECTION 1T @10 XX ; Start 07/18/16 at 10:00; Stop 07/18/16 at 10:00; Status DC Non-Formulary Medication ( See Comment Field Below ) SEE LABEL COMMENTS DAILY XX ; Start 07/16/16 at 09:00; Stop 07/16/16 at 17:15; Status DC Non-Formulary Medication ( See Comment Field Below ) SEE LABEL COMMENTS SECTION 1T@20 XX ; Start 07/18/16 at 20:00; Stop 07/19/16 at 19:59; Status DC Olanzapine (ZyPREXA ZYDIS) 5 mg Q4HP PRN PO AGITATION; Start 07/05/16 at 14 :45; Stop 08/04/16 at 14:44 Oxcarbazepine (Trileptal) 150 mg BID PO Last administered on 07/08/16 09:03; Start 07/05/16 at 21:00; Stop 07/08/16 at 16:18; Status DC Oxcarbazepine (Trileptal) 300 mg BID PO Last administered on 07/27/16 08:08; Start 07/08/16 at 21:00; Stop 08/07/16 at 20:59 Risperidone (RisperDAL) 1 mg BID PO Last administered on 07/08/16 09:03; Start 07/05/16 at 21:00; Stop 07/08/16 at 16:18; Status DC Trazodone HCl (Desyrel) 50 mg QHSP PRN PO INSOMNIA; Start 07/05/16 at 14:45; Stop 08/04/16 at 14:44 Tuberculin PPD (Aplisol, Ppd) 5 units 1T@20 ID ; Start 07/16/16 at 20:00; Stop at 20:01; Status DC Allergies Coded Allergies: Prednisone (Verified Allergy, Severe, TACHY/DIZZY, 09/12/12) Penicillins (Verified Allergy, Intermediate, RASH/HIVES, 09/12/12) Penicillins Cross Reactors (Verified Allergy, Intermediate, RASH/HIVES, 09/12/12) Quetiapine (Unverified Adverse Reaction, Intermediate, syncope, 07/27/16) Sertraline (Verified Adverse Reaction, Intermediate, AGITATION, 09/12/12) LEANA BIRIMNGHAM MD Jul 27, 2016 13:12
[2016-07-27 18:00] VITALS: BP 113/72
[2016-07-28] MEDS: LEVOTHYROXINE 0.088 MG TAB (88 MCG) PO SCH (05:38)
[2016-07-28 06:36] VITALS: BP 112/66
[2016-07-28] MEDS: LURASIDONE HCL 40 MG TAB (LATUDA) PO SCH ×2 (09:00→21:00)
[2016-07-28] MEDS: OXcarbazepine 150 MG TAB PO SCH ×2 (09:00→21:00)
[2016-07-28 18:00] VITALS: BP 115/68
[2016-07-29] MEDS: LEVOTHYROXINE 0.088 MG TAB (88 MCG) PO SCH (05:35)
[2016-07-29 06:43] VITALS: BP 117/78
[2016-07-29] MEDS: LURASIDONE HCL 40 MG TAB (LATUDA) PO SCH ×2 (09:00→21:00)
[2016-07-29] MEDS: OXcarbazepine 150 MG TAB PO SCH ×2 (09:00→21:00)
[2016-07-29 18:00] VITALS: BP 108/55
[2016-07-30] MEDS: LEVOTHYROXINE 0.088 MG TAB (88 MCG) PO SCH (06:00)
[2016-07-30 06:41] VITALS: BP 111/63
[2016-07-30] MEDS: LURASIDONE HCL 40 MG TAB (LATUDA) PO SCH ×2 (09:00→21:06)
[2016-07-30] MEDS: OXcarbazepine 150 MG TAB PO SCH ×2 (09:00→21:06)
--- NOTE | 2016-07-30 09:51 | IPNPDOC ---
[facility] Progress Note Progress Note DATE OF SERVICE: 07/28/16 SUBJECTIVE: Patient reports her decision to stop taking her psychotropic medications. She reports she will be taking her levothyroxine for hypothyroidism treatment. Patient believes her receptors allowing her to have telepathy are being destroyed by her current psychotropic meds. During interview, patient expresses ongoing paranoid and persecutory ideations. She continues to express paranoid and persecutory delusions as well as respond to internal stimuli, AHs which she perceives as telepathic communication. Patient reports diminished sleep and appetite. She denies SI/HI and VH. OBJECTIVE: Meds - See below. New labs - See below. MSE: 36yo female, in home clothes, fair hygeine, in NAD behavior -mildly agitated, but cooperative eyesight - intense mood - irritable affect -mildly agitated TP - irrational TC - believes her receptors allowing her to have telepathy are being destroyed by her current psychotropic meds Perceptions - ongoing paranoid and persecutory ideations, more consumed with details of telepathic communications Orientation - A&Ox3 Insight - poor Judgement - poor Impulse control - fair ASSESSMENT: 1. Bipolar 1 d/o MRE manic w/PFs 2. Delsusional d/o, persecutory and paranoid type Plan: -Patient has become med non-compliant since Wednesday, reporting again that the meds are causing her to lose her telepathic ability. Continue to offer currently prescribed psychotropic regimen as currently written. -Hearing for meds over objection on 07/30/16. -Process for transfer to [place] initiated. TIME SPENT: 30 minutes Vital Signs Vital Signs Date Time Temp Pulse Resp B/P Pulse Ox O2 Delivery O2 Flow Rate FiO2 07/30/16 06:41 99.5 77 20 111/63 Current Medications Current Medications Acetaminophen (Tylenol Tab) 650 mg Q6HP PRN PO HEADACHE or DISCOMFORT Last administered on 07/06/16 00:19; Start 07/05/16 at 14:45; Stop 08/04/16 at 14:44 Al Hydrox/Mg Hydrox/Simethicone (Mylanta) 30 ml Q4HP PRN PO HEARTBURN/ INDIGESTION Last administered on 07/08/16 00:29; Start 07/05/16 at 14:45; Stop 08/04/16 at 14:44 Levothyroxine Sodium (Synthroid) 0.088 mg DAILY@06 PO Last administered on 07/29 05:35; Start 07/06/16 at 06:00; Stop 08/05/16 at 05:59 Lorazepam (Ativan) 1 mg Q6HP PRN PO ANXIETY/AGITATION Last administered on 12:00; Start 07/05/16 at 14:45; Stop 08/01/16 at 14:44 Lurasidone HCl (Latuda (Lurasidone)) 60 mg BID PO Last administered on 07:51; Start 07/09/16 at 21:00; Stop 07/16/16 at 09:07; Status DC Lurasidone HCl (Latuda (Lurasidone)) 60 mg QHS PO Last administered on 21:45; Start 07/08/16 at 21:00; Stop 07/09/16 at 15:18; Status DC Lurasidone HCl (Latuda) 80 mg BID PO Last administered on 07/27/16 08:08; Start 07/16/16 at 21:00; Stop 08/15/16 at 20:59 Magnesium Hydroxide (Milk Of Magnesia) 30 ml DAILYPRN PRN PO CONSTIPATION Last administered on 07/07/16 08:14; Start 07/05/16 at 14:45; Stop 08/04/16 at 14:44 Miconazole Nitrate (Monistat-7) 1 APPLICATORFUL QHS PV Last administered on 07/15 21:24; Start 07/15/16 at 21:00; Stop 07/22/16 at 17:04; Status DC Non-Formulary Medication ( See Comment Field Below ) SEE COMMENTS SECTION 1T @10 XX ; Start 07/18/16 at 10:00; Stop 07/18/16 at 10:00; Status DC Non-Formulary Medication ( See Comment Field Below ) SEE LABEL COMMENTS DAILY XX ; Start 07/16/16 at 09:00; Stop 07/16/16 at 17:15; Status DC Non-Formulary Medication ( See Comment Field Below ) SEE LABEL COMMENTS SECTION 1T@20 XX ; Start 07/18/16 at 20:00; Stop 07/19/16 at 19:59; Status DC Olanzapine (ZyPREXA ZYDIS) 5 mg Q4HP PRN PO AGITATION; Start 07/05/16 at 14 :45; Stop 08/04/16 at 14:44 Oxcarbazepine (Trileptal) 150 mg BID PO Last administered on 07/08/16 09:03; Start 07/05/16 at 21:00; Stop 07/08/16 at 16:18; Status DC Oxcarbazepine (Trileptal) 300 mg BID PO Last administered on 07/27/16 08:08; Start 07/08/16 at 21:00; Stop 08/07/16 at 20:59 Risperidone (RisperDAL) 1 mg BID PO Last administered on 07/08/16 09:03; Start 07/05/16 at 21:00; Stop 07/08/16 at 16:18; Status DC Trazodone HCl (Desyrel) 50 mg QHSP PRN PO INSOMNIA; Start 07/05/16 at 14:45; Stop 08/04/16 at 14:44 Tuberculin PPD (Aplisol, Ppd) 5 units 1T@20 ID ; Start 07/16/16 at 20:00; Stop at 20:01; Status DC Allergies Coded Allergies: Prednisone (Verified Allergy, Severe, TACHY/DIZZY, 09/12/12) Penicillins (Verified Allergy, Intermediate, RASH/HIVES, 09/12/12) Penicillins Cross Reactors (Verified Allergy, Intermediate, RASH/HIVES, 09/12/12) Quetiapine (Unverified Adverse Reaction, Intermediate, syncope, 07/27/16) Sertraline (Verified Adverse Reaction, Intermediate, AGITATION, 09/12/12) ELANA BIRMINGHAM MD Jul 30, 2016 09:51
--- NOTE | 2016-07-30 09:52 | IPNPDOC ---
[facility] Progress Note Progress Note DATE OF SERVICE: 07/29/16 SUBJECTIVE: Patient reports respiratory ideations that staff is trying to suppress her telepathic ability. Patient reports diminished sleep last night. She declines offer of sleep aid. Patient is more labile and tearful on interview than in recent interviews. Patient continues to express her primary delusion that her children are in harm's way, in the custody of her . She continues to express paranoid and persecutory delusions as well as respond to internal stimuli, AHs which she perceives as telepathic communication. Patient reports diminished appetite. She denies SI/HI and VH. OBJECTIVE: Meds - See below. New labs - See below. MSE: 36yo female, in home clothes, fair hygeine, in NAD behavior -mildly agitated, but cooperative eyesight - intense mood - irritable affect -mildly agitated TP - irrational TC - consumed with persecutory ideations that staff is trying to suppress her telepathy Perceptions - ongoing paranoid and persecutory ideations, more consumed with details of telepathic communications Orientation - A&Ox3 Insight - poor Judgement - poor Impulse control - fair ASSESSMENT: 1. Bipolar 1 d/o MRE manic w/PFs 2. Delsusional d/o, persecutory and paranoid type Plan: -Patient still medication non-compliant. Continue to offer currently prescribed psychotropic regimen as currently written. -Hearing for meds over objection on tomorrow at 3 PM. -Process for transfer to [place] initiated. TIME SPENT: 30 minutes Vital Signs Vital Signs Date Time Temp Pulse Resp B/P Pulse Ox O2 Delivery O2 Flow Rate FiO2 07/30/16 06:41 99.5 77 20 111/63 Current Medications Current Medications Acetaminophen (Tylenol Tab) 650 mg Q6HP PRN PO HEADACHE or DISCOMFORT Last administered on 07/06/16 00:19; Start 07/05/16 at 14:45; Stop 08/04/16 at 14:44 Al Hydrox/Mg Hydrox/Simethicone (Mylanta) 30 ml Q4HP PRN PO HEARTBURN/ INDIGESTION Last administered on 07/08/16 00:29; Start 07/05/16 at 14:45; Stop 08/04/16 at 14:44 Levothyroxine Sodium (Synthroid) 0.088 mg DAILY@06 PO Last administered on 07/29 05:35; Start 07/06/16 at 06:00; Stop 08/05/16 at 05:59 Lorazepam (Ativan) 1 mg Q6HP PRN PO ANXIETY/AGITATION Last administered on 12:00; Start 07/05/16 at 14:45; Stop 08/01/16 at 14:44 Lurasidone HCl (Latuda (Lurasidone)) 60 mg BID PO Last administered on 07:51; Start 07/09/16 at 21:00; Stop 07/16/16 at 09:07; Status DC Lurasidone HCl (Latuda (Lurasidone)) 60 mg QHS PO Last administered on 21:45; Start 07/08/16 at 21:00; Stop 07/09/16 at 15:18; Status DC Lurasidone HCl (Latuda) 80 mg BID PO Last administered on 07/27/16 08:08; Start 07/16/16 at 21:00; Stop 08/15/16 at 20:59 Magnesium Hydroxide (Milk Of Magnesia) 30 ml DAILYPRN PRN PO CONSTIPATION Last administered on 07/07/16 08:14; Start 07/05/16 at 14:45; Stop 08/04/16 at 14:44 Miconazole Nitrate (Monistat-7) 1 APPLICATORFUL QHS PV Last administered on 07/15 21:24; Start 07/15/16 at 21:00; Stop 07/22/16 at 17:04; Status DC Non-Formulary Medication ( See Comment Field Below ) SEE COMMENTS SECTION 1T @10 XX ; Start 07/18/16 at 10:00; Stop 07/18/16 at 10:00; Status DC Non-Formulary Medication ( See Comment Field Below ) SEE LABEL COMMENTS DAILY XX ; Start 07/16/16 at 09:00; Stop 07/16/16 at 17:15; Status DC Non-Formulary Medication ( See Comment Field Below ) SEE LABEL COMMENTS SECTION 1T@20 XX ; Start 07/18/16 at 20:00; Stop 07/19/16 at 19:59; Status DC Olanzapine (ZyPREXA ZYDIS) 5 mg Q4HP PRN PO AGITATION; Start 07/05/16 at 14 :45; Stop 08/04/16 at 14:44 Oxcarbazepine (Trileptal) 150 mg BID PO Last administered on 07/08/16 09:03; Start 07/05/16 at 21:00; Stop 07/08/16 at 16:18; Status DC Oxcarbazepine (Trileptal) 300 mg BID PO Last administered on 07/27/16 08:08; Start 07/08/16 at 21:00; Stop 08/07/16 at 20:59 Risperidone (RisperDAL) 1 mg BID PO Last administered on 07/08/16 09:03; Start 07/05/16 at 21:00; Stop 07/08/16 at 16:18; Status DC Trazodone HCl (Desyrel) 50 mg QHSP PRN PO INSOMNIA; Start 07/05/16 at 14:45; Stop 08/04/16 at 14:44 Tuberculin PPD (Aplisol, Ppd) 5 units 1T@20 ID ; Start 07/16/16 at 20:00; Stop at 20:01; Status DC Allergies Coded Allergies: Prednisone (Verified Allergy, Severe, TACHY/DIZZY, 09/12/12) Penicillins (Verified Allergy, Intermediate, RASH/HIVES, 09/12/12) Penicillins Cross Reactors (Verified Allergy, Intermediate, RASH/HIVES, 09/12/12) Quetiapine (Unverified Adverse Reaction, Intermediate, syncope, 07/27/16) Sertraline (Verified Adverse Reaction, Intermediate, AGITATION, 09/12/12) ELANA BIRMINGHAM MD Jul 30, 2016 09:52
--- NOTE | 2016-07-30 22:35 | IPNPDOC ---
[facility] Progress Note Progress Note DATE OF SERVICE: 07/30/16 SUBJECTIVE: Patient reports this morning that she is no longer Lisa Sharp, but has taken on a new name. She continues to express paranoid and persecutory delusions as well as respond to internal stimuli, AHs which she perceives as telepathic communication. Patient reports diminished appetite. She denies SI/HI and VH. Court today for retention and meds over objection. OBJECTIVE: Meds - See below. New labs - See below. MSE: 36yo female, in home clothes, fair hygeine, in NAD behavior -mildly agitated, but cooperative eyesight - intense mood - irritable affect -mildly agitated TP - irrational TC - consumed with persecutory ideations that staff is trying to suppress her telepathy Perceptions - ongoing paranoid and persecutory ideations, more consumed with details of telepathic communications Orientation - A&Ox3 Insight - poor Judgement - poor Impulse control - fair ASSESSMENT: 1. Bipolar 1 d/o MRE manic w/PFs 2. Delsusional d/o, persecutory and paranoid type Plan: -Patient still medication non-compliant. Continue to offer currently prescribed psychotropic regimen as currently written. -Hearing for meds over objection on at 3 PM. -Process for transfer to [place] initiated. TIME SPENT: 30 minutes Vital Signs Vital Signs Date Time Temp Pulse Resp B/P Pulse Ox O2 Delivery O2 Flow Rate FiO2 07/30/16 06:41 99.5 77 20 111/63 Current Medications Current Medications Acetaminophen (Tylenol Tab) 650 mg Q6HP PRN PO HEADACHE or DISCOMFORT Last administered on 07/06/16 00:19; Start 07/05/16 at 14:45; Stop 08/04/16 at 14:44 Al Hydrox/Mg Hydrox/Simethicone (Mylanta) 30 ml Q4HP PRN PO HEARTBURN/ INDIGESTION Last administered on 07/08/16 00:29; Start 07/05/16 at 14:45; Stop 08/04/16 at 14:44 Levothyroxine Sodium (Synthroid) 0.088 mg DAILY@06 PO Last administered on 07/29 05:35; Start 07/06/16 at 06:00; Stop 08/05/16 at 05:59 Lorazepam (Ativan) 1 mg Q6HP PRN PO ANXIETY/AGITATION Last administered on 12:00; Start 07/05/16 at 14:45; Stop 08/01/16 at 14:44 Lurasidone HCl (Latuda (Lurasidone)) 60 mg BID PO Last administered on 07:51; Start 07/09/16 at 21:00; Stop 07/16/16 at 09:07; Status DC Lurasidone HCl (Latuda (Lurasidone)) 60 mg QHS PO Last administered on 21:45; Start 07/08/16 at 21:00; Stop 07/09/16 at 15:18; Status DC Lurasidone HCl (Latuda) 80 mg BID PO Last administered on 07/30/16 21:06; Start 07/16/16 at 21:00; Stop 08/15/16 at 20:59 Magnesium Hydroxide (Milk Of Magnesia) 30 ml DAILYPRN PRN PO CONSTIPATION Last administered on 07/07/16 08:14; Start 07/05/16 at 14:45; Stop 08/04/16 at 14:44 Miconazole Nitrate (Monistat-7) 1 APPLICATORFUL QHS PV Last administered on 07/15 21:24; Start 07/15/16 at 21:00; Stop 07/22/16 at 17:04; Status DC Non-Formulary Medication ( See Comment Field Below ) SEE COMMENTS SECTION 1T @10 XX ; Start 07/18/16 at 10:00; Stop 07/18/16 at 10:00; Status DC Non-Formulary Medication ( See Comment Field Below ) SEE LABEL COMMENTS DAILY XX ; Start 07/16/16 at 09:00; Stop 07/16/16 at 17:15; Status DC Non-Formulary Medication ( See Comment Field Below ) SEE LABEL COMMENTS SECTION 1T@20 XX ; Start 07/18/16 at 20:00; Stop 07/19/16 at 19:59; Status DC Olanzapine (ZyPREXA ZYDIS) 5 mg Q4HP PRN PO AGITATION; Start 07/05/16 at 14 :45; Stop 08/04/16 at 14:44 Oxcarbazepine (Trileptal) 150 mg BID PO Last administered on 07/08/16 09:03; Start 07/05/16 at 21:00; Stop 07/08/16 at 16:18; Status DC Oxcarbazepine (Trileptal) 300 mg BID PO Last administered on 07/30/16 21:06; Start 07/08/16 at 21:00; Stop 08/07/16 at 20:59 Risperidone (RisperDAL) 1 mg BID PO Last administered on 07/08/16 09:03; Start 07/05/16 at 21:00; Stop 07/08/16 at 16:18; Status DC Trazodone HCl (Desyrel) 50 mg QHSP PRN PO INSOMNIA; Start 07/05/16 at 14:45; Stop 08/04/16 at 14:44 Tuberculin PPD (Aplisol, Ppd) 5 units 1T@20 ID ; Start 07/16/16 at 20:00; Stop at 20:01; Status DC Allergies Coded Allergies: Prednisone (Verified Allergy, Severe, TACHY/DIZZY, 09/12/12) Penicillins (Verified Allergy, Intermediate, RASH/HIVES, 09/12/12) Penicillins Cross Reactors (Verified Allergy, Intermediate, RASH/HIVES, 09/12/12) Quetiapine (Unverified Adverse Reaction, Intermediate, syncope, 07/27/16) Sertraline (Verified Adverse Reaction, Intermediate, AGITATION, 09/12/12) ELANA BIRMINGHAM MD Jul 30, 2016 22:35
[2016-07-31] MEDS: LEVOTHYROXINE 0.088 MG TAB (88 MCG) PO SCH (06:57)
[2016-07-31 07:00] VITALS: BP 117/70
[2016-07-31] MEDS: OXcarbazepine 150 MG TAB PO SCH ×2 (08:06→20:49)
[2016-07-31] MEDS: LURASIDONE HCL 40 MG TAB (LATUDA) PO SCH ×2 (08:07→20:49)
[2016-07-31 18:00] VITALS: BP 114/70
[2016-08-01] MEDS: LEVOTHYROXINE 0.088 MG TAB (88 MCG) PO SCH (06:03)
[2016-08-01 06:38] VITALS: BP 125/75
[2016-08-01] MEDS: OXcarbazepine 150 MG TAB PO SCH ×2 (09:20→20:31)
[2016-08-01] MEDS: LURASIDONE HCL 40 MG TAB (LATUDA) PO SCH ×2 (09:20→20:30)
[2016-08-01] MEDS ORDERED: HALOPERIDOL 5 MG/ML VIAL (J1630) IM PRN (17:30)
[2016-08-01 18:25] VITALS: BP 105/53
--- NOTE | 2016-08-01 19:10 | IPNPDOC ---
[facility] Progress Note Progress Note DATE OF SERVICE: 07/31/16 SUBJECTIVE: Patient reports respiratory ideations that staff is trying to suppress her telepathic ability. Patient continues to express her primary delusion that her children are in harm's way, in the custody of her . She continues to express paranoid and persecutory delusions as well as respond to internal stimuli, AHs which she perceives as telepathic communication. Patient reports diminished appetite. She denies SI/HI and VH. OBJECTIVE: Meds - See below. New labs - See below. MSE: 36yo female, in home clothes, fair hygeine, in NAD behavior -mildly agitated, but cooperative eyesight - intense mood - irritable affect -mildly agitated TP - irrational TC - consumed with persecutory ideations that staff is trying to suppress her telepathy Perceptions - ongoing paranoid and persecutory ideations, more consumed with details of telepathic communications Orientation - A&Ox3 Insight - poor Judgement - poor Impulse control - fair ASSESSMENT: 1. Bipolar 1 d/o MRE manic w/PFs 2. Delsusional d/o, persecutory and paranoid type Plan: -Patient now court ordered to comply with currently prescribed psychotropic regimen as currently written. -Hearing for meds over objection and retention completed yesterday. -Process for transfer to [facility] initiated. TIME SPENT: 30 minutes Vital Signs Vital Signs Date Time Temp Pulse Resp B/P Pulse Ox O2 Delivery O2 Flow Rate FiO2 08/01/16 18:25 98.5 73 16 105/53 Current Medications Current Medications Acetaminophen (Tylenol Tab) 650 mg Q6HP PRN PO HEADACHE or DISCOMFORT Last administered on 07/06/16 00:19; Start 07/05/16 at 14:45; Stop 08/04/16 at 14:44 Al Hydrox/Mg Hydrox/Simethicone (Mylanta) 30 ml Q4HP PRN PO HEARTBURN/ INDIGESTION Last administered on 07/08/16 00:29; Start 07/05/16 at 14:45; Stop 08/04/16 at 14:44 Haloperidol (Haldol) 5 mg BIDP PRN IM AGITATION; Start 08/01/16 at 17:30; Stop 08/31/16 at 17:29 Levothyroxine Sodium (Synthroid) 0.088 mg DAILY@06 PO Last administered on 08/01 06:03; Start 07/06/16 at 06:00; Stop 08/05/16 at 05:59 Lorazepam (Ativan) 1 mg Q6HP PRN PO ANXIETY/AGITATION Last administered on 12:00; Start 07/05/16 at 14:45; Stop 08/07/16 at 14:44 Lurasidone HCl (Latuda (Lurasidone)) 60 mg BID PO Last administered on 07:51; Start 07/09/16 at 21:00; Stop 07/16/16 at 09:07; Status DC Lurasidone HCl (Latuda (Lurasidone)) 60 mg QHS PO Last administered on 21:45; Start 07/08/16 at 21:00; Stop 07/09/16 at 15:18; Status DC Lurasidone HCl (Latuda) 80 mg BID PO Last administered on 08/01/16 09:20; Start 07/16/16 at 21:00; Stop 08/15/16 at 20:59 Magnesium Hydroxide (Milk Of Magnesia) 30 ml DAILYPRN PRN PO CONSTIPATION Last administered on 07/07/16 08:14; Start 07/05/16 at 14:45; Stop 08/04/16 at 14:44 Miconazole Nitrate (Monistat-7) 1 APPLICATORFUL QHS PV Last administered on 07/15 21:24; Start 07/15/16 at 21:00; Stop 07/22/16 at 17:04; Status DC Non-Formulary Medication ( See Comment Field Below ) SEE COMMENTS SECTION 1T @10 XX ; Start 07/18/16 at 10:00; Stop 07/18/16 at 10:00; Status DC Non-Formulary Medication ( See Comment Field Below ) SEE LABEL COMMENTS DAILY XX ; Start 07/16/16 at 09:00; Stop 07/16/16 at 17:15; Status DC Non-Formulary Medication ( See Comment Field Below ) SEE LABEL COMMENTS SECTION 1T@20 XX ; Start 07/18/16 at 20:00; Stop 07/19/16 at 19:59; Status DC Olanzapine (ZyPREXA ZYDIS) 5 mg Q4HP PRN PO AGITATION; Start 07/05/16 at 14 :45; Stop 08/01/16 at 17:20; Status DC Oxcarbazepine (Trileptal) 150 mg BID PO Last administered on 07/08/16 09:03; Start 07/05/16 at 21:00; Stop 07/08/16 at 16:18; Status DC Oxcarbazepine (Trileptal) 300 mg BID PO Last administered on 08/01/16 09:20; Start 07/08/16 at 21:00; Stop 08/07/16 at 20:59 Risperidone (RisperDAL) 1 mg BID PO Last administered on 07/08/16 09:03; Start 07/05/16 at 21:00; Stop 07/08/16 at 16:18; Status DC Trazodone HCl (Desyrel) 50 mg QHSP PRN PO INSOMNIA; Start 07/05/16 at 14:45; Stop 08/04/16 at 14:44 Tuberculin PPD (Aplisol, Ppd) 5 units 1T@20 ID ; Start 07/16/16 at 20:00; Stop at 20:01; Status DC Allergies Coded Allergies: Prednisone (Verified Allergy, Severe, TACHY/DIZZY, 09/12/12) Penicillins (Verified Allergy, Intermediate, RASH/HIVES, 09/12/12) Penicillins Cross Reactors (Verified Allergy, Intermediate, RASH/HIVES, 09/12/12) Quetiapine (Unverified Adverse Reaction, Intermediate, syncope, 07/27/16) Sertraline (Verified Adverse Reaction, Intermediate, AGITATION, 09/12/12) ELANA BIRMINGHAM MD Aug 01, 2016 19:10
[2016-08-02] MEDS: LEVOTHYROXINE 0.088 MG TAB (88 MCG) PO SCH (06:04)
[2016-08-02] MEDS: OXcarbazepine 150 MG TAB PO SCH ×2 (08:17→20:40)
[2016-08-02] MEDS: LURASIDONE HCL 40 MG TAB (LATUDA) PO SCH ×2 (08:17→20:40)
[2016-08-02 18:00] VITALS: BP 99/57
[2016-08-03 06:54] VITALS: BP 109/66
[2016-08-03] MEDS: LEVOTHYROXINE 0.088 MG TAB (88 MCG) PO SCH (07:04)
[2016-08-03] MEDS: LURASIDONE HCL 40 MG TAB (LATUDA) PO SCH ×2 (08:05→21:05)
[2016-08-03] MEDS: OXcarbazepine 150 MG TAB PO SCH ×2 (08:05→21:05)
[2016-08-03 18:00] VITALS: BP 131/75
[2016-08-04] MEDS: LEVOTHYROXINE 0.088 MG TAB (88 MCG) PO SCH (05:54)
[2016-08-04 06:47] VITALS: BP 101/65
[2016-08-04] MEDS: LURASIDONE HCL 40 MG TAB (LATUDA) PO SCH ×2 (09:25→21:07)
[2016-08-04] MEDS: OXcarbazepine 150 MG TAB PO SCH ×2 (09:25→21:07)
[2016-08-04 18:00] VITALS: BP 111/65
[2016-08-05] MEDS: LEVOTHYROXINE 0.088 MG TAB (88 MCG) PO SCH (06:09)
[2016-08-05 06:37] VITALS: BP 136/71
[2016-08-05] MEDS: OXcarbazepine 150 MG TAB PO SCH ×2 (08:29→21:04)
[2016-08-05] MEDS: LURASIDONE HCL 40 MG TAB (LATUDA) PO SCH ×2 (08:29→21:04)
[2016-08-05 18:00] VITALS: BP 114/72
[2016-08-06] MEDS: LEVOTHYROXINE 0.088 MG TAB (88 MCG) PO SCH (06:02)
[2016-08-06 06:28] VITALS: BP 109/73
[2016-08-06] MEDS: LURASIDONE HCL 40 MG TAB (LATUDA) PO SCH ×2 (08:35→22:12)
[2016-08-06] MEDS: OXcarbazepine 150 MG TAB PO SCH ×2 (08:35→22:12)
[2016-08-06 18:00] VITALS: BP 122/75
[2016-08-07] MEDS: LEVOTHYROXINE 0.088 MG TAB (88 MCG) PO SCH (06:13)
[2016-08-07 07:13] VITALS: BP 113/72
[2016-08-07] MEDS: LURASIDONE HCL 40 MG TAB (LATUDA) PO SCH ×2 (07:58→21:58)
[2016-08-07] MEDS: OXcarbazepine 150 MG TAB PO SCH (07:58)
[2016-08-07 18:00] VITALS: BP 121/66
[2016-08-08] MEDS: LEVOTHYROXINE 0.088 MG TAB (88 MCG) PO SCH (05:40)
[2016-08-08 06:47] VITALS: BP 130/78
[2016-08-08] MEDS: LURASIDONE HCL 40 MG TAB (LATUDA) PO SCH ×2 (08:01→21:00)
[2016-08-08] MEDS: OXcarbazepine 150 MG TAB PO SCH ×3 (10:09→21:00)
[2016-08-08 18:00] VITALS: BP 117/59
[2016-08-09 06:00] VITALS: BP 109/57
[2016-08-09] MEDS: LEVOTHYROXINE 0.088 MG TAB (88 MCG) PO SCH (07:07)
[2016-08-09] MEDS: OXcarbazepine 150 MG TAB PO SCH ×2 (09:00→22:06)
[2016-08-09] MEDS: LURASIDONE HCL 40 MG TAB (LATUDA) PO SCH ×2 (09:00→22:06)
[2016-08-09 18:00] VITALS: BP 121/75
[2016-08-10] MEDS: LEVOTHYROXINE 0.088 MG TAB (88 MCG) PO SCH (06:18)
[2016-08-10 06:30] VITALS: BP 119/76
[2016-08-10] MEDS: LURASIDONE HCL 40 MG TAB (LATUDA) PO SCH ×2 (09:17→21:01)
[2016-08-10] MEDS: OXcarbazepine 150 MG TAB PO SCH ×2 (09:17→21:01)
[2016-08-10 18:00] VITALS: BP 109/64
[2016-08-10] MEDS: MAALOX 30 ML SUSP *UDC PO PRN (21:31)
[2016-08-11] MEDS: LEVOTHYROXINE 0.088 MG TAB (88 MCG) PO SCH (05:58)
[2016-08-11 06:29] VITALS: BP 132/62
[2016-08-11] MEDS: OXcarbazepine 150 MG TAB PO SCH ×2 (07:59→20:20)
[2016-08-11] MEDS: LURASIDONE HCL 40 MG TAB (LATUDA) PO SCH ×2 (07:59→20:20)
[2016-08-11 22:22] VITALS: BP 106/60
[2016-08-12] MEDS: LEVOTHYROXINE 0.088 MG TAB (88 MCG) PO SCH (05:57)
[2016-08-12 06:15] VITALS: BP 105/65
[2016-08-12] MEDS: OXcarbazepine 150 MG TAB PO SCH ×2 (09:26→20:51)
[2016-08-12] MEDS: LURASIDONE HCL 40 MG TAB (LATUDA) PO SCH ×2 (09:26→20:51)
[2016-08-12 18:00] VITALS: BP 110/67
[2016-08-13] MEDS: LEVOTHYROXINE 0.088 MG TAB (88 MCG) PO SCH (06:02)
[2016-08-13 06:51] VITALS: BP 90/58
[2016-08-13] MEDS: OXcarbazepine 150 MG TAB PO SCH ×2 (08:16→20:32)
[2016-08-13] MEDS: LURASIDONE HCL 40 MG TAB (LATUDA) PO SCH ×2 (08:16→20:32)
[2016-08-13] MEDS: MAALOX 30 ML SUSP *UDC PO PRN ×2 (13:14→19:09)
[2016-08-13 18:00] VITALS: BP 109/58
[2016-08-14] MEDS: LEVOTHYROXINE 0.088 MG TAB (88 MCG) PO SCH (06:16)
[2016-08-14 06:45] VITALS: BP 110/74
[2016-08-14] MEDS: OXcarbazepine 150 MG TAB PO SCH ×2 (08:10→21:00)
[2016-08-14] MEDS: LURASIDONE HCL 40 MG TAB (LATUDA) PO SCH ×2 (08:10→21:00)
[2016-08-14 18:00] VITALS: BP 113/62
[2016-08-15] MEDS: LEVOTHYROXINE 0.088 MG TAB (88 MCG) PO SCH (06:03)
[2016-08-15 07:13] VITALS: BP 102/56
[2016-08-15] MEDS: LURASIDONE HCL 40 MG TAB (LATUDA) PO SCH ×2 (08:01→20:31)
[2016-08-15] MEDS: OXcarbazepine 150 MG TAB PO SCH ×2 (08:01→20:31)
[2016-08-15 18:00] VITALS: BP 112/61
[2016-08-15] MEDS: MAALOX 30 ML SUSP *UDC PO PRN (19:12)
[2016-08-16] MEDS: LEVOTHYROXINE 0.088 MG TAB (88 MCG) PO SCH (05:57)
[2016-08-16 07:45] VITALS: BP 103/64
[2016-08-16] MEDS: LURASIDONE HCL 40 MG TAB (LATUDA) PO SCH ×2 (08:29→20:35)
[2016-08-16] MEDS: OXcarbazepine 150 MG TAB PO SCH ×2 (08:29→20:35)
[2016-08-16 18:00] VITALS: BP 111/69
[2016-08-17] MEDS: LEVOTHYROXINE 0.088 MG TAB (88 MCG) PO SCH (05:48)
[2016-08-17 06:15] VITALS: BP 113/60
[2016-08-17] MEDS: LURASIDONE HCL 40 MG TAB (LATUDA) PO SCH ×2 (08:06→20:58)
[2016-08-17] MEDS: OXcarbazepine 150 MG TAB PO SCH ×2 (08:06→20:58)
--- NOTE | 2016-08-17 16:08 | IPNPDOC ---
[facility] Progress Note Progress Note DATE OF SERVICE: 08/17/16 HISTORY: The patient is met with in the hallway today. She describes that she doesn't understand the reasons for her admission. She went on further to described that she had "Radford's palsy chronically" she additionally then became demanding and requested a CT scan. When told that a CT scan would not likely show any signs of a Radford's palsy she then requested an MRI. She describes that she felt as though her was doing harm to her children and stepfather. She further went on to describe, while staring intently, that she felt as though the medicine had no effect or "point". She additionally complains that after using a shampoo that she had used multiple times, that it caused her scalp to feel "tingly". She described that she found no rashes or lesions on her head but was concerned and requested some form of ointment. However, when asked which type of ointment she would want, she was unable to describe. Reports from the nursing staff indicate that the patient has an generally poorly on latuda and has further become more odd and bizarre. Reports from social work have indicated that the patient has been attempting to call the police reporting that her is doing untoward things to her children. However, after a multitude of calls the police have sees to respond as there is an order for protection against her from her and CPS has restricted access to her children. She has been reported to be less bizarre when providers but when observed in the milieu tends to be more irritated and delusional. There is no additional mentions that she has been refusing medicines at times as they are suppressing her "telepathic" abilities. She is been noted to endorse that she feels that she has receptors in her head communicate the thoughts of others. VITAL SIGNS: See below. NEW TEST RESULTS: No new tests at this time. CURRENT MEDICATIONS: See below. MENTAL STATUS EXAMINATION: Patient is a 36-year old female, who is well dressed in a T-shirt and sweatpants with mildly disheveled hair Speech: Is mildly pressured but is able to be redirected Language skills are generally intact. Thought processes including: Circumstantial bordering on tangential. Thought content: Irrational and illogical. Abstract reasoning, and computation: Seibert reasoning him. Description of associations: Loose Description of abnormal or psychotic thoughts: Appears to consist of delusions that she has Radford's palsy that requires an MRI and that her is doing untoward things to her children, however does not appear to be amenable to any other way of thinking. She has been noted to say to staff that she feels as though she can "read minds". The patient does not appear to be overtly responding to internal stimuli and is generally unamenable to answering questions as to whether she is hearing any Vicente hallucinations or experiencing visual hallucinations. Judgment: Poor. Insight: Poor. Orientation to time place and person Recent and remote memory: Immediate and short-term memory appears to be grossly intact as well as long-term memory as evidenced by her ability to remember the circumstances by which she came to the hospital, biographical information and events of the morning Attention span and concentration: Were Language: Normal Fund of knowledge: Fair Mood: "Fine", affect: Irritable, stable mood incongruent DIAGNOSES: 1. Unspecified psychosis. 2. History of bipolar disorder. 3. History of delusional disorder ASSESSMENT: A 36-year-old woman with a history of bipolar disorder, whom is currently in a delusional state and has been manifesting paranoid ideation, recently started on Latuda after a court ordered treatment over objection. She is currently on 80 mg twice a day and has yet to demonstrate significant improvement in her insight and delusional thinking. Her treatment over objection also includes the use of risperidone which she has reportedly done well on in the past. MANAGEMENT PLAN: 1. Considering cross taper with Risperidone off Latuda as patient has done well on it before, the IM approved would be IM Haldol. 2. Invega Tram if risperidone taper goes well 3. Continue retention as patient is delusional and poses as risk to herself and others due to gravely disabled state. She will need continued care and likely fdc placement to improve. TIME SPENT: 20 minutes. Vital Signs Vital Signs Date Time Temp Pulse Resp B/P Pulse Ox O2 Delivery O2 Flow Rate FiO2 08/17/16 06:15 96.7 71 16 113/60 Current Medications Current Medications Acetaminophen (Tylenol Tab) 650 mg Q6HP PRN PO HEADACHE or DISCOMFORT Last administered on 07/06/16t 00:19; Start 07/05/16 at 14:45; Stop 09/02/16 at 14:44 Al Hydrox/Mg Hydrox/Simethicone (Mylanta) 30 ml Q4HP PRN PO HEARTBURN/ INDIGESTION Last administered on 08/15/16 19:12; Start 07/05/16 at 14:45; Stop 09/02/16 at 14:44 Haloperidol (Haldol) 5 mg BIDP PRN IM AGITATION; Start 08/01/16 at 17:30; Stop 08/03/16 at 15:19; Status DC Levothyroxine Sodium (Synthroid) 0.088 mg DAILY@06 PO Last administered on 08/17 05:48; Start 07/06/16 at 06:00; Stop 09/03/16 at 05:59 Lorazepam (Ativan) 1 mg Q6HP PRN PO ANXIETY/AGITATION Last administered on 12:00; Start 07/05/16 at 14:45; Stop 08/21/16 at 14:44 Lurasidone HCl (Latuda (Lurasidone)) 60 mg BID PO Last administered on 07:51; Start 07/09/16 at 21:00; Stop 07/16/16 at 09:07; Status DC Lurasidone HCl (Latuda (Lurasidone)) 60 mg QHS PO Last administered on 21:45; Start 07/08/16 at 21:00; Stop 07/09/16 at 15:18; Status DC Lurasidone HCl (Latuda) 80 mg BID PO Last administered on 08/17/16 08:06; Start 07/16/16 at 21:00; Stop 08/21/16 at 20:59 Magnesium Hydroxide (Milk Of Magnesia) 30 ml DAILYPRN PRN PO CONSTIPATION Last administered on 07/07/16 08:14; Start 07/05/16 at 14:45; Stop 09/02/16 at 14:44 Miconazole Nitrate (Monistat-7) 1 APPLICATORFUL QHS PV Last administered on 07/15 21:24; Start 07/15/16 at 21:00; Stop 07/22/16 at 17:04; Status DC Non-Formulary Medication ( See Comment Field Below ) SEE COMMENTS SECTION 1T @10 XX ; Start 07/18/16 at 10:00; Stop 07/18/16 at 10:00; Status DC Non-Formulary Medication ( See Comment Field Below ) SEE LABEL COMMENTS DAILY XX ; Start 07/16/16 at 09:00; Stop 07/16/16 at 17:15; Status DC Non-Formulary Medication ( See Comment Field Below ) SEE LABEL COMMENTS SECTION 1T@20 XX ; Start 07/18/16 at 20:00; Stop 07/19/16 at 19:59; Status DC Olanzapine (ZyPREXA ZYDIS) 5 mg Q4HP PRN PO AGITATION; Start 07/05/16 at 14 :45; Stop 08/01/16 at 17:20; Status DC Oxcarbazepine (Trileptal) 150 mg BID PO Last administered on 07/08/16 09:03; Start 07/05/16 at 21:00; Stop 07/08/16 at 16:18; Status DC Oxcarbazepine (Trileptal) 300 mg BID PO Last administered on 08/17/16 08:06; Start 07/08/16 at 21:00; Stop 09/07/16 at 20:59 Risperidone (RisperDAL) 1 mg BID PO Last administered on 07/08/16 09:03; Start 07/05/16 at 21:00; Stop 07/08/16 at 16:18; Status DC Trazodone HCl (Desyrel) 50 mg QHSP PRN PO INSOMNIA; Start 07/05/16 at 14:45; Stop 09/02/16 at 14:44 Tuberculin PPD (Aplisol, Ppd) 5 units 1T@20 ID ; Start 07/16/16 at 20:00; Stop at 20:01; Status DC Allergies Coded Allergies: Prednisone (Verified Allergy, Severe, TACHY/DIZZY, 09/12/12) Penicillins (Verified Allergy, Intermediate, RASH/HIVES, 09/12/12) Penicillins Cross Reactors (Verified Allergy, Intermediate, RASH/HIVES, 09/12/12) Quetiapine (Unverified Adverse Reaction, Intermediate, syncope, 07/27/16) Sertraline (Verified Adverse Reaction, Intermediate, AGITATION, 09/12/12) Plan/VTE VTE Prophylaxis Ordered?: No GME ATTESTATION My preceptor for this patient encounter was fully available. As needed, all aspects of the patient interview, examination, medical decision making process, and medical care plan development were reviewed and approved by the preceptor. Preceptor is aware and concurs with the plan as stated in the body of this note and will attest to such by his/her cosignature. PEDRO LUIS PUENTES DO Aug 17, 2016 15:15
[2016-08-17 18:00] VITALS: BP 113/58
[2016-08-18 06:00] VITALS: BP 108/58
[2016-08-18] MEDS: LEVOTHYROXINE 0.088 MG TAB (88 MCG) PO SCH (06:16)
[2016-08-18] MEDS: OXcarbazepine 150 MG TAB PO SCH ×2 (08:31→20:30)
[2016-08-18] MEDS: LURASIDONE HCL 40 MG TAB (LATUDA) PO SCH ×2 (08:31→17:24)
--- NOTE | 2016-08-18 17:28 | IPNPDOC ---
[facility] Progress Note Progress Note DATE OF SERVICE: 08/18/16 HISTORY: Patient met with briefly today before she met with Dr. Toribio. She described that she felt her scalp was doing better but still requested some form about low cream for her scalp. She has been noted by the nursing staff to remain somewhat bizarre but her delusions appear much more centered and less expansive than the past. There is concern that perhaps she has a simple delusional disorder which would not be amenable to medicine. She had notes sent to [facility] and she is being considered for transfer. However, they reported that they wish to have her on a six-month retention in order to be transferred. Dr. Toribio described that she spoke cogently about many different topics during a discussion and that her bizarre ideation appears generally constrained to the subject of her children and her VITAL SIGNS: See below. NEW TEST RESULTS: None. CURRENT MEDICATIONS: See below. MENTAL STATUS EXAMINATION: Patient is a 36-year old female, who is pleasant and generally cooperative, good grooming. Speech: Is normal in rate and volume and articulation. Her speech is spontaneous and coherent. Language skills are intact. Thought processes including: Appears clear. Thought content: Illogical at times. Abstract reasoning, and computation: Some concrete thinking. Description of associations: Loose. Description of abnormal or psychotic thoughts: Still experiencing concerns about her scalp. However less, demanding about medical workup. She does not appear to be overtly responding to internal stimuli. She has been noted to make no threats towards herself or others on the manley Judgment: Limited. Insight: Limited. Orientation to time place and person. Recent and remote memory: Immediate, short-term and long-term memory appears grossly intact. Attention span and concentration: Good. Language: Normal. Fund of knowledge: Adequate. Mood: "Better". Affect: Flat. DIAGNOSES: 1. Unspecified psychosis. 2. History of bipolar disorder ASSESSMENT: The patient 28-year-old woman with a history of delusional ideation about her 's intentions for her children, whom is currently on a treatment over objection and retention. Her retention setting and at the end of this month. She was initially being considered for transfer [facility] for long-term treatment. However, they will prior six-month retention. The patient appears to be presenting herself in a much better situation at the start of 2 to. Consideration will be given as to whether she has a true psychotic process or whether she is experiencing a delusional disorder. MANAGEMENT PLAN: 1. Continue Latuda 80 mg daily 2. Trileptal 300 mg twice a day . Continue inpatient mission as the patient and her current state is not ready for discharge and would pose a danger to herself she were to continuing her gravely disabled state. Additionally the treatment shipping team leader to consider whether six-month retention is possible at this time TIME SPENT: 10 minutes. Vital Signs Vital Signs Date Time Temp Pulse Resp B/P Pulse Ox O2 Delivery O2 Flow Rate FiO2 08/18/16 06:00 96.1 69 16 108/58 Current Medications Current Medications Acetaminophen (Tylenol Tab) 650 mg Q6HP PRN PO HEADACHE or DISCOMFORT Last administered on 07/06/16 00:19; Start 07/05/16 at 14:45; Stop 09/02/16 at 14:44 Al Hydrox/Mg Hydrox/Simethicone (Mylanta) 30 ml Q4HP PRN PO HEARTBURN/ INDIGESTION Last administered on 08/15/16 19:12; Start 07/05/16 at 14:45; Stop 09/02/16 at 14:44 Haloperidol (Haldol) 5 mg BIDP PRN IM AGITATION; Start 08/01/16 at 17:30; Stop 08/03/16 at 15:19; Status DC Levothyroxine Sodium (Synthroid) 0.088 mg DAILY@06 PO Last administered on 08/18 06:16; Start 07/06/16 at 06:00; Stop 09/03/16 at 05:59 Lorazepam (Ativan) 1 mg Q6HP PRN PO ANXIETY/AGITATION Last administered on 12:00; Start 07/05/16 at 14:45; Stop 08/21/16 at 14:44 Lurasidone HCl (Latuda (Lurasidone)) 60 mg BID PO Last administered on 07:51; Start 07/09/16 at 21:00; Stop 07/16/16 at 09:07; Status DC Lurasidone HCl (Latuda (Lurasidone)) 60 mg QHS PO Last administered on 21:45; Start 07/08/16 at 21:00; Stop 07/09/16 at 15:18; Status DC Lurasidone HCl (Latuda) 80 mg BID PO Last administered on 08/18/16 08:31; Start 07/16/16 at 21:00; Stop 08/18/16 at 08:41; Status DC Lurasidone HCl (Latuda) 80 mg BID@,18 PO ; Start 08/18/16 at 18:00; Stop 09/17 at 17:59 Magnesium Hydroxide (Milk Of Magnesia) 30 ml DAILYPRN PRN PO CONSTIPATION Last administered on 07/07/16 08:14; Start 07/05/16 at 14:45; Stop 09/02/16 at 14:44 Miconazole Nitrate (Monistat-7) 1 APPLICATORFUL QHS PV Last administered on 07/15 21:24; Start 07/15/16 at 21:00; Stop 07/22/16 at 17:04; Status DC Non-Formulary Medication ( See Comment Field Below ) SEE COMMENTS SECTION 1T @10 XX ; Start 07/18/16 at 10:00; Stop 07/18/16 at 10:00; Status DC Non-Formulary Medication ( See Comment Field Below ) SEE LABEL COMMENTS DAILY XX ; Start 07/16/16 at 09:00; Stop 07/16/16 at 17:15; Status DC Non-Formulary Medication ( See Comment Field Below ) SEE LABEL COMMENTS SECTION 1T@20 XX ; Start 07/18/16 at 20:00; Stop 07/19/16 at 19:59; Status DC Olanzapine (ZyPREXA ZYDIS) 5 mg Q4HP PRN PO AGITATION; Start 07/05/16 at 14 :45; Stop 08/01/16 at 17:20; Status DC Oxcarbazepine (Trileptal) 150 mg BID PO Last administered on 07/08/16 09:03; Start 07/05/16 at 21:00; Stop 07/08/16 at 16:18; Status DC Oxcarbazepine (Trileptal) 300 mg BID PO Last administered on 08/18/16 08:31; Start 07/08/16 at 21:00; Stop 09/07/16 at 20:59 Risperidone (RisperDAL) 1 mg BID PO Last administered on 07/08/16t 09:03; Start 07/05/16 at 21:00; Stop 07/08/16 at 16:18; Status DC Trazodone HCl (Desyrel) 50 mg QHSP PRN PO INSOMNIA; Start 07/05/16 at 14:45; Stop 09/02/16 at 14:44 Tuberculin PPD (Aplisol, Ppd) 5 units 1T@20 ID ; Start 07/16/16 at 20:00; Stop at 20:01; Status DC Allergies Coded Allergies: Prednisone (Verified Allergy, Severe, TACHY/DIZZY, 09/12/12) Penicillins (Verified Allergy, Intermediate, RASH/HIVES, 09/12/12) Penicillins Cross Reactors (Verified Allergy, Intermediate, RASH/HIVES, 09/12/12) Quetiapine (Unverified Adverse Reaction, Intermediate, syncope, 07/27/16) Sertraline (Verified Adverse Reaction, Intermediate, AGITATION, 09/12/12) GME ATTESTATION My preceptor for this patient encounter was fully available. As needed, all aspects of the patient interview, examination, medical decision making process, and medical care plan development were reviewed and approved by the preceptor. Preceptor is aware and concurs with the plan as stated in the body of this note and will attest to such by his/her cosignature. PEDRO LUIS PUENTES DO Aug 18, 2016 17:28
[2016-08-18 18:00] VITALS: BP 108/53
[2016-08-19] MEDS: LEVOTHYROXINE 0.088 MG TAB (88 MCG) PO SCH (05:52)
[2016-08-19 06:00] VITALS: BP 114/57
[2016-08-19] MEDS: LURASIDONE HCL 40 MG TAB (LATUDA) PO SCH ×2 (08:20→18:05)
[2016-08-19] MEDS: OXcarbazepine 150 MG TAB PO SCH ×2 (08:20→21:59)
[2016-08-19] MEDS ORDERED: EUCERIN 120GM CREAM TOP PRN (16:00)
[2016-08-19 18:00] VITALS: BP 117/63
--- NOTE | 2016-08-19 21:34 | IPNPDOC ---
[facility] Progress Note Progress Note DATE OF SERVICE: 08/19/16 HISTORY: The patient was met with shortly, she described feeling much better having learned that the transfer to [facility] had fallen through. She appears to be improving well on the manley and is amenable to going home to her aunt's home in [place] next week. She hasn't used any cream for her scalp discomfort. She has been noted to be socializing well with other patients on the manley. She otherwise has been noted not be endorsing her bizarre ideation as much to staff over the previous day. VITAL SIGNS: See below. NEW TEST RESULTS: none CURRENT MEDICATIONS: See below. MENTAL STATUS EXAMINATION: Patient is a 36-year old female, who is pleasant, cooperative, well kempt. Speech: Is normal in rate, volume, and articulation, and is coherent and spontaneous. Language skills are intact Thought processes including: clear Thought content: rational and linear. Abstract reasoning, and computation: intact Description of associations: intact Description of abnormal or psychotic thoughts: denies any SI, HI, AH or VH. Doesn't appear to be responding to internal stimuli Judgment: fair Insight: poor Orientation to time, place and person Recent and remote memory: immediate, short-term and long-term memory is intact. Attention span and concentration: good Language: Normal Fund of knowledge: good Mood: "better". Affect: euthymic with full range DIAGNOSES: 1. Unspecified delusional disorder 2. Unspecified psychotic disorder ASSESSMENT: 36 year old woman with consolidated paranoid ideation about her husbands intensions with her children, whom appears to have stabilized with some antipsychotics. She has a residual delusion that appears separate from her original presenting psychosis. MANAGEMENT PLAN: 1. Latuda 80mg BID 2. Trileptal 300mg BID 3. Continue inpatient stay as patient will need further time to plan for a safe discharge. TIME SPENT: 15 minutes. Vital Signs Vital Signs Date Time Temp Pulse Resp B/P Pulse Ox O2 Delivery O2 Flow Rate FiO2 08/19/16 06:00 97.8 69 16 114/57 Current Medications Current Medications Acetaminophen (Tylenol Tab) 650 mg Q6HP PRN PO HEADACHE or DISCOMFORT Last administered on 07/06/16t 00:19; Start 07/05/16 at 14:45; Stop 09/02/16 at 14:44 Al Hydrox/Mg Hydrox/Simethicone (Mylanta) 30 ml Q4HP PRN PO HEARTBURN/ INDIGESTION Last administered on 08/15/16 19:12; Start 07/05/16 at 14:45; Stop 09/02/16 at 14:44 Haloperidol (Haldol) 5 mg BIDP PRN IM AGITATION; Start 08/01/16 at 17:30; Stop 08/03/16 at 15:19; Status DC Levothyroxine Sodium (Synthroid) 0.088 mg DAILY@06 PO Last administered on 08/19 05:52; Start 07/06/16 at 06:00; Stop 09/03/16 at 05:59 Lorazepam (Ativan) 1 mg Q6HP PRN PO ANXIETY/AGITATION Last administered on 12:00; Start 07/05/16 at 14:45; Stop 08/21/16 at 14:44 Lurasidone HCl (Latuda (Lurasidone)) 60 mg BID PO Last administered on 07:51; Start 07/09/16 at 21:00; Stop 07/16/16 at 09:07; Status DC Lurasidone HCl (Latuda (Lurasidone)) 60 mg QHS PO Last administered on 21:45; Start 07/08/16 at 21:00; Stop 07/09/16 at 15:18; Status DC Lurasidone HCl (Latuda) 80 mg BID PO Last administered on 08/18/16 08:31; Start 07/16/16 at 21:00; Stop 08/18/16 at 08:41; Status DC Lurasidone HCl (Latuda) 80 mg BID@08,18 PO Last administered on 08/19/16 18:05 ; Start 08/18/16 at 18:00; Stop 09/17/16 at 17:59 Magnesium Hydroxide (Milk Of Magnesia) 30 ml DAILYPRN PRN PO CONSTIPATION Last administered on 07/07/16 08:14; Start 07/05/16 at 14:45; Stop 09/02/16 at 14:44 Miconazole Nitrate (Monistat-7) 1 APPLICATORFUL QHS PV Last administered on 07/15 21:24; Start 07/15/16 at 21:00; Stop 07/22/16 at 17:04; Status DC Mineral Oil/White Petrolatum (Eucerin) PRN for scalp dryn... DAILYPRN PRN TOP SYMPTOM RELIEF; Start 08/19/16 at 16:00; Stop 09/18/16 at 15:59 Non-Formulary Medication ( See Comment Field Below ) SEE COMMENTS SECTION 1T @10 XX ; Start 07/18/16 at 10:00; Stop 07/18/16 at 10:00; Status DC Non-Formulary Medication ( See Comment Field Below ) SEE LABEL COMMENTS DAILY XX ; Start 07/16/16 at 09:00; Stop 07/16/16 at 17:15; Status DC Non-Formulary Medication ( See Comment Field Below ) SEE LABEL COMMENTS SECTION 1T@20 XX ; Start 07/18/16 at 20:00; Stop 07/19/16 at 19:59; Status DC Olanzapine (ZyPREXA ZYDIS) 5 mg Q4HP PRN PO AGITATION; Start 07/05/16 at 14 :45; Stop 08/01/16 at 17:20; Status DC Oxcarbazepine (Trileptal) 150 mg BID PO Last administered on 07/08/16 09:03; Start 07/05/16 at 21:00; Stop 07/08/16 at 16:18; Status DC Oxcarbazepine (Trileptal) 300 mg BID PO Last administered on 08/19/16 08:20; Start 07/08/16 at 21:00; Stop 09/07/16 at 20:59 Risperidone (RisperDAL) 1 mg BID PO Last administered on 07/08/16 09:03; Start 07/05/16 at 21:00; Stop 07/08/16 at 16:18; Status DC Trazodone HCl (Desyrel) 50 mg QHSP PRN PO INSOMNIA; Start 07/05/16 at 14:45; Stop 09/02/16 at 14:44 Tuberculin PPD (Aplisol, Ppd) 5 units 1T@20 ID ; Start 07/16/16 at 20:00; Stop at 20:01; Status DC Allergies Coded Allergies: Prednisone (Verified Allergy, Severe, TACHY/DIZZY, 09/12/12) Penicillins (Verified Allergy, Intermediate, RASH/HIVES, 09/12/12) Penicillins Cross Reactors (Verified Allergy, Intermediate, RASH/HIVES, 09/12/12) Quetiapine (Unverified Adverse Reaction, Intermediate, syncope, 07/27/16) Sertraline (Verified Adverse Reaction, Intermediate, AGITATION, 09/12/12) GME ATTESTATION My preceptor for this patient encounter was fully available. As needed, all aspects of the patient interview, examination, medical decision making process, and medical care plan development were reviewed and approved by the preceptor. Preceptor is aware and concurs with the plan as stated in the body of this note and will attest to such by his/her cosignature. PEDRO LUIS PUENTES DO Aug 19, 2016 18:14
[2016-08-19] MEDS: ACETAMINOPHEN TAB 650MG DOSE (2X325MG) PO PRN (22:06)
[2016-08-20] MEDS ORDERED: IBUPROFEN 600 MG TAB PO ONE (04:00)
[2016-08-20] MEDS: LEVOTHYROXINE 0.088 MG TAB (88 MCG) PO SCH (06:15)
[2016-08-20 06:22] VITALS: BP 92/51
[2016-08-20] MEDS: OXcarbazepine 150 MG TAB PO SCH ×2 (08:01→20:46)
[2016-08-20] MEDS: LURASIDONE HCL 40 MG TAB (LATUDA) PO SCH ×2 (08:01→18:25)
[2016-08-20] MEDS: ACETAMINOPHEN TAB 650MG DOSE (2X325MG) PO PRN (09:41)
[2016-08-20 18:00] VITALS: BP 113/65
--- NOTE | 2016-08-20 19:07 | IPNPDOC ---
[facility] Progress Note Progress Note DATE OF SERVICE: 08/20/16 HISTORY: The patient is met briefly today as she attend the medication information group and had questions afterwards. She described concerns about her medicines and wants no possible side effects and issues in the future she could face. She appeared to understand these issues in a coherent manner and appeared to express very little paranoid ideation about them. She appears to be in quite elated about her possible discharge next week. She has been socializing well with other patients on the manley and has generally been redacted about speaking up her paranoid and bizarre ideation at times. She has had no episodes of agitation or other disruptive behavior on the manley quite some time. She alludes to no side effects from her medications. VITAL SIGNS: See below. NEW TEST RESULTS: None. CURRENT MEDICATIONS: See below. MENTAL STATUS EXAMINATION: Patient is a 36-year old female, who is pleasant, cooperative with good hygiene, . Speech: Is spontaneous and fluid. Language skills are intact Thought processes including: Linear and coherent. Thought content: Future oriented and does not endorse any paranoid ideation. Abstract reasoning, and computation: Intact. Description of associations: Intact. Description of abnormal or psychotic thoughts: Makes no threats against herself or others. Does not appear to be responding to internal stimuli Judgment: Fair. Insight: Limited. Orientation to alert and oriented 3. Recent and remote memory: Grossly intact. Attention span and concentration: Good. Language: Normal. Fund of knowledge: Good. Mood: "Better". Affect: Euthymic with a full range. DIAGNOSES: 1. Unspecified psychotic disorder. 2. Unspecified delusional disorder. ASSESSMENT: A 36-year-old woman with a history of delusional beliefs about telepathy and paranoid ideation about her 's intentions with her children. She appears to stabilize quite well on a small dose of an atypical antipsychotic and a mood stabilizer. She is originally kept on a treatment over objection however it will be running out towards in this month. She is stabilized such that she is unlikely to be retained her treat over objection any further. She has help plan a safe discharge to her aunt's home in [place]. MANAGEMENT PLAN: 1. Continue latuda 80 mg twice a day 2. Continue Trileptal 300 mg twice a day 3. Continue Eucerin cream as needed for scalp irritation 4. Continue inpatient stay as the patient will need further time in order to secure a safe and stable discharge. TIME SPENT: 15 minutes. Vital Signs Vital Signs Date Time Temp Pulse Resp B/P Pulse Ox O2 Delivery O2 Flow Rate FiO2 08/20/16 06:22 98.7 70 18 92/51 Current Medications Current Medications Acetaminophen (Tylenol Tab) 650 mg Q6HP PRN PO HEADACHE or DISCOMFORT Last administered on 08/20/16 09:41; Start 07/05/16 at 14:45; Stop 09/02/16 at 14:44 Al Hydrox/Mg Hydrox/Simethicone (Mylanta) 30 ml Q4HP PRN PO HEARTBURN/ INDIGESTION Last administered on 08/15/16 19:12; Start 07/05/16 at 14:45; Stop 09/02/16 at 14:44 Haloperidol (Haldol) 5 mg BIDP PRN IM AGITATION; Start 08/01/16 at 17:30; Stop 08/03/16 at 15:19; Status DC Levothyroxine Sodium (Synthroid) 0.088 mg DAILY@06 PO Last administered on 08/20 06:15; Start 07/06/16 at 06:00; Stop 09/03/16 at 05:59 Lorazepam (Ativan) 1 mg Q6HP PRN PO ANXIETY/AGITATION Last administered on 12:00; Start 07/05/16 at 14:45; Stop 08/21/16 at 14:44 Lurasidone HCl (Latuda (Lurasidone)) 60 mg BID PO Last administered on 07:51; Start 07/09/16 at 21:00; Stop 07/16/16 at 09:07; Status DC Lurasidone HCl (Latuda (Lurasidone)) 60 mg QHS PO Last administered on 21:45; Start 07/08/16 at 21:00; Stop 07/09/16 at 15:18; Status DC Lurasidone HCl (Latuda) 80 mg BID PO Last administered on 08/18/16 08:31; Start 07/16/16 at 21:00; Stop 08/18/16 at 08:41; Status DC Lurasidone HCl (Latuda) 80 mg BID@08,18 PO Last administered on 08/20/16 18:25 ; Start 08/18/16 at 18:00; Stop 09/17/16 at 17:59 Magnesium Hydroxide (Milk Of Magnesia) 30 ml DAILYPRN PRN PO CONSTIPATION Last administered on 07/07/16 08:14; Start 07/05/16 at 14:45; Stop 09/02/16 at 14:44 Miconazole Nitrate (Monistat-7) 1 APPLICATORFUL QHS PV Last administered on 07/15 21:24; Start 07/15/16 at 21:00; Stop 07/22/16 at 17:04; Status DC Mineral Oil/White Petrolatum (Eucerin) PRN for scalp dryn... DAILYPRN PRN TOP SYMPTOM RELIEF; Start 08/19/16 at 16:00; Stop 09/18/16 at 15:59 Non-Formulary Medication ( See Comment Field Below ) SEE COMMENTS SECTION 1T @10 XX ; Start 07/18/16 at 10:00; Stop 07/18/16 at 10:00; Status DC Non-Formulary Medication ( See Comment Field Below ) SEE LABEL COMMENTS DAILY XX ; Start 07/16/16 at 09:00; Stop 07/16/16 at 17:15; Status DC Non-Formulary Medication ( See Comment Field Below ) SEE LABEL COMMENTS SECTION 1T@20 XX ; Start 07/18/16 at 20:00; Stop 07/19/16 at 19:59; Status DC Olanzapine (ZyPREXA ZYDIS) 5 mg Q4HP PRN PO AGITATION; Start 07/05/16 at 14 :45; Stop 08/01/16 at 17:20; Status DC Oxcarbazepine (Trileptal) 150 mg BID PO Last administered on 07/08/16 09:03; Start 07/05/16 at 21:00; Stop 07/08/16 at 16:18; Status DC Oxcarbazepine (Trileptal) 300 mg BID PO Last administered on 08/20/16 08:01; Start 07/08/16 at 21:00; Stop 09/07/16 at 20:59 Risperidone (RisperDAL) 1 mg BID PO Last administered on 07/08/16 09:03; Start 07/05/16 at 21:00; Stop 07/08/16 at 16:18; Status DC Trazodone HCl (Desyrel) 50 mg QHSP PRN PO INSOMNIA; Start 07/05/16 at 14:45; Stop 09/02/16 at 14:44 Tuberculin PPD (Aplisol, Ppd) 5 units 1T@20 ID ; Start 07/16/16 at 20:00; Stop at 20:01; Status DC Allergies Coded Allergies: Prednisone (Verified Allergy, Severe, TACHY/DIZZY, 09/12/12) Penicillins (Verified Allergy, Intermediate, RASH/HIVES, 09/12/12) Penicillins Cross Reactors (Verified Allergy, Intermediate, RASH/HIVES, 09/12/12) Quetiapine (Unverified Adverse Reaction, Intermediate, syncope, 07/27/16) Sertraline (Verified Adverse Reaction, Intermediate, AGITATION, 09/12/12) GME ATTESTATION My preceptor for this patient encounter was fully available. As needed, all aspects of the patient interview, examination, medical decision making process, and medical care plan development were reviewed and approved by the preceptor. Preceptor is aware and concurs with the plan as stated in the body of this note and will attest to such by his/her cosignature. PEDRO LUIS PUENTES DO Aug 20, 2016 19:07
[2016-08-21] MEDS: LEVOTHYROXINE 0.088 MG TAB (88 MCG) PO SCH (06:15)
[2016-08-21 06:28] VITALS: BP 111/66
[2016-08-21] MEDS: OXcarbazepine 150 MG TAB PO SCH ×2 (08:02→22:25)
[2016-08-21] MEDS: LURASIDONE HCL 40 MG TAB (LATUDA) PO SCH ×2 (08:02→17:52)
[2016-08-21] MEDS ORDERED: LORazepam 1 MG TAB PO PRN (17:15)
--- NOTE | 2016-08-21 17:45 | IPNPDOC ---
[facility] Progress Note Progress Note DATE OF SERVICE: 08/21/16 HISTORY: The patient was met with today both in group and individually. She described that she was feeling much better. Although in group, she describes much despair that she would not feel to see her children and impending move to [place]. She was able to effectively process during the group and was able to receive support and validation from group members. She appeared to think logically, coherently and psychologically minded during her group session. Nursing staff report the patient is friendly upon approach. She is currently awaiting planning for her travel to [place] where she will live with a relative. There are few mentions of any bizarre ideation to staff or otherwise. VITAL SIGNS: See below. NEW TEST RESULTS: None. CURRENT MEDICATIONS: See below. MENTAL STATUS EXAMINATION: Patient is a 36-year old female, who is pleasant, cooperative and well kempt,. Speech: Is spontaneous and fluid. Language skills are intact. Thought processes including: Linear and logical. Thought content: Some anxiety about traveling to [place]. Abstract reasoning, and computation: Intact. Description of associations: Intact. Description of abnormal or psychotic thoughts: Denies any suicidal, homicidal ideation. Denies any auditory or visual hallucinations. Does not appear to be responding to internal stimuli. Does endorse any overtly bizarre paranoid ideation.. Judgment: Fair. Insight: Fair. Orientation to alert and oriented 3. Recent and remote memory: Grossly intact. Attention span and concentration: Good. Language: Normal. Fund of knowledge: Adequate. Mood: "Good". Affect: Euthymic with a full range. DIAGNOSES: 1. Unspecified psychosis. 2. Unspecified delusional disorder. ASSESSMENT: 29 yo woman with an episode of paranoia and psychosis but appeared to resolve after treatment over objection. She appears to have improved significantly since the start of the medications and has become more able to socialize with others and has redacted much of her bizarre ideation. She currently still has reportedly some paranoid ideation about her but that this is well encapsulated and doesn't interfere with her social functioning at this time. She would be unlikely to be retained or treated over objection on subsequent court retention. MANAGEMENT PLAN: 1. Continue Latuda 80 mg twice a day. 2. Continue Trileptal 300 mg twice a day 3. Continue Eucerin cream as needed for scalp tingling 4. Continue inpatient stay as she will need further time for planning of a safe and effective discharge. TIME SPENT: 20 minutes. Vital Signs Vital Signs Date Time Temp Pulse Resp B/P Pulse Ox O2 Delivery O2 Flow Rate FiO2 08/21/16 06:28 97.8 80 16 111/66 Current Medications Current Medications Acetaminophen (Tylenol Tab) 650 mg Q6HP PRN PO HEADACHE or DISCOMFORT Last administered on 08/20/16 09:41; Start 07/05/16 at 14:45; Stop 09/02/16 at 14:44 Al Hydrox/Mg Hydrox/Simethicone (Mylanta) 30 ml Q4HP PRN PO HEARTBURN/ INDIGESTION Last administered on 08/15/16 19:12; Start 07/05/16 at 14:45; Stop 09/02/16 at 14:44 Haloperidol (Haldol) 5 mg BIDP PRN IM AGITATION; Start 08/01/16 at 17:30; Stop 08/03/16 at 15:19; Status DC Levothyroxine Sodium (Synthroid) 0.088 mg DAILY@06 PO Last administered on 08/21 06:15; Start 07/06/16 at 06:00; Stop 09/03/16 at 05:59 Lorazepam (Ativan) 1 mg Q6HP PRN PO ANXIETY/AGITATION Last administered on 12:00; Start 07/05/16 at 14:45; Stop 08/21/16 at 14:44; Status DC Lorazepam (Ativan) 1 mg Q6HP PRN PO ANXIETY/AGITATION; Start 08/21/16 at 17:15 ; Stop 08/28/16 at 17:14 Lurasidone HCl (Latuda (Lurasidone)) 60 mg BID PO Last administered on 07:51; Start 07/09/16 at 21:00; Stop 07/16/16 at 09:07; Status DC Lurasidone HCl (Latuda (Lurasidone)) 60 mg QHS PO Last administered on 21:45; Start 07/08/16 at 21:00; Stop 07/09/16 at 15:18; Status DC Lurasidone HCl (Latuda) 80 mg BID PO Last administered on 08/18/16 08:31; Start 07/16/16 at 21:00; Stop 08/18/16 at 08:41; Status DC Lurasidone HCl (Latuda) 80 mg BID@08,18 PO Last administered on 08/21/16 08:02 ; Start 08/18/16 at 18:00; Stop 09/17/16 at 17:59 Magnesium Hydroxide (Milk Of Magnesia) 30 ml DAILYPRN PRN PO CONSTIPATION Last administered on 07/07/16 08:14; Start 07/05/16 at 14:45; Stop 09/02/16 at 14:44 Miconazole Nitrate (Monistat-7) 1 APPLICATORFUL QHS PV Last administered on 07/15 21:24; Start 07/15/16 at 21:00; Stop 07/22/16 at 17:04; Status DC Mineral Oil/White Petrolatum (Eucerin) PRN for scalp dryn... DAILYPRN PRN TOP SYMPTOM RELIEF; Start 08/19/16 at 16:00; Stop 09/18/16 at 15:59 Non-Formulary Medication ( See Comment Field Below ) SEE COMMENTS SECTION 1T @10 XX ; Start 07/18/16 at 10:00; Stop 07/18/16 at 10:00; Status DC Non-Formulary Medication ( See Comment Field Below ) SEE LABEL COMMENTS DAILY XX ; Start 07/16/16 at 09:00; Stop 07/16/16 at 17:15; Status DC Non-Formulary Medication ( See Comment Field Below ) SEE LABEL COMMENTS SECTION 1T@20 XX ; Start 07/18/16 at 20:00; Stop 07/19/16 at 19:59; Status DC Olanzapine (ZyPREXA ZYDIS) 5 mg Q4HP PRN PO AGITATION; Start 07/05/16 at 14 :45; Stop 08/01/16 at 17:20; Status DC Oxcarbazepine (Trileptal) 150 mg BID PO Last administered on 07/08/16 09:03; Start 07/05/16 at 21:00; Stop 07/08/16 at 16:18; Status DC Oxcarbazepine (Trileptal) 300 mg BID PO Last administered on 08/21/16 08:02; Start 07/08/16 at 21:00; Stop 09/07/16 at 20:59 Risperidone (RisperDAL) 1 mg BID PO Last administered on 07/08/16t 09:03; Start 07/05/16 at 21:00; Stop 07/08/16 at 16:18; Status DC Trazodone HCl (Desyrel) 50 mg QHSP PRN PO INSOMNIA; Start 07/05/16 at 14:45; Stop 09/02/16 at 14:44 Tuberculin PPD (Aplisol, Ppd) 5 units 1T@20 ID ; Start 07/16/16 at 20:00; Stop at 20:01; Status DC Allergies Coded Allergies: Prednisone (Verified Allergy, Severe, TACHY/DIZZY, 09/12/12) Penicillins (Verified Allergy, Intermediate, RASH/HIVES, 09/12/12) Penicillins Cross Reactors (Verified Allergy, Intermediate, RASH/HIVES, 09/12/12) Quetiapine (Unverified Adverse Reaction, Intermediate, syncope, 07/27/16) Sertraline (Verified Adverse Reaction, Intermediate, AGITATION, 09/12/12) GME ATTESTATION My preceptor for this patient encounter was fully available. As needed, all aspects of the patient interview, examination, medical decision making process, and medical care plan development were reviewed and approved by the preceptor. Preceptor is aware and concurs with the plan as stated in the body of this note and will attest to such by his/her cosignature. PEDRO LUIS PUENTES DO Aug 21, 2016 17:45
[2016-08-21 18:00] VITALS: BP 105/56
[2016-08-22] MEDS: LEVOTHYROXINE 0.088 MG TAB (88 MCG) PO SCH (06:43)
[2016-08-22 06:44] VITALS: BP 107/63
[2016-08-22] MEDS: LURASIDONE HCL 40 MG TAB (LATUDA) PO SCH ×2 (08:57→17:42)
[2016-08-22] MEDS: OXcarbazepine 150 MG TAB PO SCH ×2 (08:58→22:47)
[2016-08-22 18:00] VITALS: BP 109/56
[2016-08-23] MEDS: LEVOTHYROXINE 0.088 MG TAB (88 MCG) PO SCH (06:11)
[2016-08-23 06:42] VITALS: BP 99/57
[2016-08-23] MEDS: LURASIDONE HCL 40 MG TAB (LATUDA) PO SCH ×2 (07:25→17:42)
[2016-08-23] MEDS: OXcarbazepine 150 MG TAB PO SCH ×2 (07:25→20:18)
[2016-08-23 18:00] VITALS: BP 111/56
[2016-08-24] MEDS: LEVOTHYROXINE 0.088 MG TAB (88 MCG) PO SCH (05:35)
[2016-08-24 06:43] VITALS: BP 104/58
[2016-08-24] MEDS: OXcarbazepine 150 MG TAB PO SCH ×2 (08:39→20:32)
[2016-08-24] MEDS: LURASIDONE HCL 40 MG TAB (LATUDA) PO SCH ×2 (08:39→18:03)
[2016-08-24 18:00] VITALS: BP 128/70
--- NOTE | 2016-08-24 18:45 | IPNPDOC ---
[facility] Progress Note Progress Note DATE OF SERVICE: 08/24/16 HISTORY: The patient is met with today shortly both individually and in group. She describes that she still has difficulties accepting her moved to [place]. She describes that she is excited that she will eventually leave the [facility] but feels remorse about the idea that she will have limited interactions with her children. The uncertainty of her marital situation and finances appeared to have some strain for her. However, during group she was able to use the group process to help process her emotions and appeared to benefit. She has been noted to be social interactive on the [facility]. She has been attending groups fairly regularly. VITAL SIGNS: See below. NEW TEST RESULTS: None. CURRENT MEDICATIONS: See below. MENTAL STATUS EXAMINATION: Patient is a 36-year old female, who is pleasant, cooperative and well kempt. Speech: Is spontaneous and fluid. Language skills are intact. Thought processes including: Linear and logical. Thought content: Some worry about future disposition. Abstract reasoning, and computation: Intact. Description of associations: Intact. Description of abnormal or psychotic thoughts: Makes no threats towards herself or others. Does not appear to be overtly responding to internal stimuli. No overtly bizarre paranoid ideation is elicited. Judgment: Fair. Insight: Fair. Orientation to alert and orientated 3. Recent and remote memory: Grossly intact. Attention span and concentration: Good. Language: Normal. Fund of knowledge: Adequate. Mood: "Good". Affect: Euthymic with constriction. DIAGNOSES: 1. Unspecified psychotic disorder. 2. Unspecified delusional disorder. ASSESSMENT: A 36-year-old woman with a history of psychosis and paranoia related to her . She appears to result significantly since the treatment over objection. She does seem to retain some paranoid ideation about his intentions, however does not appear to be overall impairing to her social functioning. MANAGEMENT PLAN: 1. Continue Latuda 80 mg twice a day new graft 2. Continue Trileptal 300 mg twice a day. 3. Continue when necessary medications 4. Continue inpatient stay as the patient will need longer inpatient time for a safe and effective discharge to be put together. TIME SPENT: 25 minutes. Vital Signs Vital Signs Date Time Temp Pulse Resp B/P Pulse Ox O2 Delivery O2 Flow Rate FiO2 08/24/16 06:43 98.8 61 18 104/58 Current Medications Current Medications Acetaminophen (Tylenol Tab) 650 mg Q6HP PRN PO HEADACHE or DISCOMFORT Last administered on 08/20/16 09:41; Start 07/05/16 at 14:45; Stop 09/02/16 at 14:44 Al Hydrox/Mg Hydrox/Simethicone (Mylanta) 30 ml Q4HP PRN PO HEARTBURN/ INDIGESTION Last administered on 08/15/16 19:12; Start 07/05/16 at 14:45; Stop 09/02/16 at 14:44 Haloperidol (Haldol) 5 mg BIDP PRN IM AGITATION; Start 08/01/16 at 17:30; Stop 08/03/16 at 15:19; Status DC Levothyroxine Sodium (Synthroid) 0.088 mg DAILY@06 PO Last administered on 08/24 05:35; Start 07/06/16 at 06:00; Stop 09/03/16 at 05:59 Lorazepam (Ativan) 1 mg Q6HP PRN PO ANXIETY/AGITATION Last administered on 12:00; Start 07/05/16 at 14:45; Stop 08/21/16 at 14:44; Status DC Lorazepam (Ativan) 1 mg Q6HP PRN PO ANXIETY/AGITATION; Start 08/21/16 at 17:15 ; Stop 08/28/16 at 17:14 Lurasidone HCl (Latuda (Lurasidone)) 60 mg BID PO Last administered on 07:51; Start 07/09/16 at 21:00; Stop 07/16/16 at 09:07; Status DC Lurasidone HCl (Latuda (Lurasidone)) 60 mg QHS PO Last administered on 21:45; Start 07/08/16 at 21:00; Stop 07/09/16 at 15:18; Status DC Lurasidone HCl (Latuda) 80 mg BID PO Last administered on 08/18/16 08:31; Start 07/16/16 at 21:00; Stop 08/18/16 at 08:41; Status DC Lurasidone HCl (Latuda) 80 mg BID@08,18 PO Last administered on 08/24/16 18:03 ; Start 08/18/16 at 18:00; Stop 09/17/16 at 17:59 Magnesium Hydroxide (Milk Of Magnesia) 30 ml DAILYPRN PRN PO CONSTIPATION Last administered on 07/07/16 08:14; Start 07/05/16 at 14:45; Stop 09/02/16 at 14:44 Miconazole Nitrate (Monistat-7) 1 APPLICATORFUL QHS PV Last administered on 07/15 21:24; Start 07/15/16 at 21:00; Stop 07/22/16 at 17:04; Status DC Mineral Oil/White Petrolatum (Eucerin) PRN for scalp dryn... DAILYPRN PRN TOP SYMPTOM RELIEF; Start 08/19/16 at 16:00; Stop 09/18/16 at 15:59 Non-Formulary Medication ( See Comment Field Below ) SEE COMMENTS SECTION 1T @10 XX ; Start 07/18/16 at 10:00; Stop 07/18/16 at 10:00; Status DC Non-Formulary Medication ( See Comment Field Below ) SEE LABEL COMMENTS DAILY XX ; Start 07/16/16 at 09:00; Stop 07/16/16 at 17:15; Status DC Non-Formulary Medication ( See Comment Field Below ) SEE LABEL COMMENTS SECTION 1T@20 XX ; Start 07/18/16 at 20:00; Stop 07/19/16 at 19:59; Status DC Olanzapine (ZyPREXA ZYDIS) 5 mg Q4HP PRN PO AGITATION; Start 07/05/16 at 14 :45; Stop 08/01/16 at 17:20; Status DC Oxcarbazepine (Trileptal) 150 mg BID PO Last administered on 07/08/16 09:03; Start 07/05/16 at 21:00; Stop 07/08/16 at 16:18; Status DC Oxcarbazepine (Trileptal) 300 mg BID PO Last administered on 08/24/16 08:39; Start 07/08/16 at 21:00; Stop 09/07/16 at 20:59 Risperidone (RisperDAL) 1 mg BID PO Last administered on 07/08/16 09:03; Start 07/05/16 at 21:00; Stop 07/08/16 at 16:18; Status DC Trazodone HCl (Desyrel) 50 mg QHSP PRN PO INSOMNIA; Start 07/05/16 at 14:45; Stop 09/02/16 at 14:44 Tuberculin PPD (Aplisol, Ppd) 5 units 1T@20 ID ; Start 07/16/16 at 20:00; Stop at 20:01; Status DC Allergies Coded Allergies: Prednisone (Verified Allergy, Severe, TACHY/DIZZY, 09/12/12) Penicillins (Verified Allergy, Intermediate, RASH/HIVES, 09/12/12) Penicillins Cross Reactors (Verified Allergy, Intermediate, RASH/HIVES, 09/12/12) Quetiapine (Unverified Adverse Reaction, Intermediate, syncope, 07/27/16) Sertraline (Verified Adverse Reaction, Intermediate, AGITATION, 09/12/12) GME ATTESTATION My preceptor for this patient encounter was fully available. As needed, all aspects of the patient interview, examination, medical decision making process, and medical care plan development were reviewed and approved by the preceptor. Preceptor is aware and concurs with the plan as stated in the body of this note and will attest to such by his/her cosignature. PEDRO LUIS PUENTES DO Aug 24, 2016 18:45
[2016-08-25] MEDS: LEVOTHYROXINE 0.088 MG TAB (88 MCG) PO SCH (06:12)
[2016-08-25 06:32] VITALS: BP 113/63
[2016-08-25] MEDS: LURASIDONE HCL 40 MG TAB (LATUDA) PO SCH ×2 (07:17→17:58)
[2016-08-25] MEDS: OXcarbazepine 150 MG TAB PO SCH ×2 (08:51→20:15)
[2016-08-25] MEDS ORDERED: LATU40TA PO (12:49)
[2016-08-25] MEDS ORDERED: OXCA150T PO (12:49)
[2016-08-25] MEDS ORDERED: LATU80TA PO (14:57)
[2016-08-25] MEDS ORDERED: SYNT88TA2 PO (15:39)
--- NOTE | 2016-08-25 17:26 | IPNPDOC ---
[facility] Progress Note Progress Note DATE OF SERVICE: 08/25/16 HISTORY: The patient is met with today individually and in group. She during group described difficulties with her and attempting to regain trust with others. She further went on to describe and support others in the group with difficulties with regaining access to her children. She described indignation that she had been falsely labeled and had done "nothing wrong". She described some elation that she will be going home on Wednesday with her grandparents. Her prescriptions were sent to her pharmacy so that they can be processed and picked up as she will leave fairly early in the morning. She appears to be generally social and the milieu and has become increasingly more clear and psychologically minded. She has had no disruptive incidents overnight. VITAL SIGNS: See below. NEW TEST RESULTS: None. CURRENT MEDICATIONS: See below. MENTAL STATUS EXAMINATION: Patient is a 36-year old female, who is pleasant, cooperative and fairly well kempt. Speech: Is spontaneous and fluid. Language skills are intact. Thought processes including: Linear and logical. Thought content: Some worry about her discharge. Abstract reasoning, and computation: Intact. Description of associations: Intact. Description of abnormal or psychotic thoughts: Denies any suicidal or homicidal ideation. Denies any auditory or visual hallucinations. Does not appear to be responding to internal stimuli. Does not endorse any overtly bizarre paranoid ideation.. Judgment: Fair. Insight: Fair. Orientation to alert and orientated 3. Recent and remote memory: Grossly intact. Attention span and concentration: Good. Language: Normal. Fund of knowledge: Adequate. Mood: "Excited". Affect: Euthymic with a full range. DIAGNOSES: 1. Unspecified bipolar disorder 2. Unspecified delusional disorder. ASSESSMENT: A 36-year-old woman with a history of paranoia and psychosis, whom appears to come in with a cycling mood disorder after review of her chart and further discussion. She appears to stabilize well with a neuroleptic and a mood stabilizer. She is pending discharged to [place] with her grandparents MANAGEMENT PLAN: 1. Continue Latuda 80 mg twice a day 2. Continue Trileptal 300 mg twice a day 3. Prescription sent to pharmacy so that they may be processed and picked up for the patient's pending discharge on Wednesday 4. Continue inpatient stay as she will likely need more time in order to plan a safe and effective discharge. TIME SPENT: 20 minutes. Vital Signs Vital Signs Date Time Temp Pulse Resp B/P Pulse Ox O2 Delivery O2 Flow Rate FiO2 08/25/16 06:32 98.3 74 18 113/63 Current Medications Current Medications Acetaminophen (Tylenol Tab) 650 mg Q6HP PRN PO HEADACHE or DISCOMFORT Last administered on 08/20/16 09:41; Start 07/05/16 at 14:45; Stop 09/02/16 at 14:44 Al Hydrox/Mg Hydrox/Simethicone (Mylanta) 30 ml Q4HP PRN PO HEARTBURN/ INDIGESTION Last administered on 08/15/16 19:12; Start 07/05/16 at 14:45; Stop 09/02/16 at 14:44 Haloperidol (Haldol) 5 mg BIDP PRN IM AGITATION; Start 08/01/16 at 17:30; Stop 08/03/16 at 15:19; Status DC Levothyroxine Sodium (Synthroid) 0.088 mg DAILY@06 PO Last administered on 08/25 06:12; Start 07/06/16 at 06:00; Stop 09/03/16 at 05:59 Lorazepam (Ativan) 1 mg Q6HP PRN PO ANXIETY/AGITATION Last administered on 12:00; Start 07/05/16 at 14:45; Stop 08/21/16 at 14:44; Status DC Lorazepam (Ativan) 1 mg Q6HP PRN PO ANXIETY/AGITATION; Start 08/21/16 at 17:15 ; Stop 08/28/16 at 17:14 Lurasidone HCl (Latuda (Lurasidone)) 60 mg BID PO Last administered on 07:51; Start 07/09/16 at 21:00; Stop 07/16/16 at 09:07; Status DC Lurasidone HCl (Latuda (Lurasidone)) 60 mg QHS PO Last administered on 21:45; Start 07/08/16 at 21:00; Stop 07/09/16 at 15:18; Status DC Lurasidone HCl (Latuda) 80 mg BID PO Last administered on 08/18/16 08:31; Start 07/16/16 at 21:00; Stop 08/18/16 at 08:41; Status DC Lurasidone HCl (Latuda) 80 mg BID@08,18 PO Last administered on 08/25/16 07:17 ; Start 08/18/16 at 18:00; Stop 09/17/16 at 17:59 Magnesium Hydroxide (Milk Of Magnesia) 30 ml DAILYPRN PRN PO CONSTIPATION Last administered on 07/07/16 08:14; Start 07/05/16 at 14:45; Stop 09/02/16 at 14:44 Miconazole Nitrate (Monistat-7) 1 APPLICATORFUL QHS PV Last administered on 07/15 21:24; Start 07/15/16 at 21:00; Stop 07/22/16 at 17:04; Status DC Mineral Oil/White Petrolatum (Eucerin) PRN for scalp dryn... DAILYPRN PRN TOP SYMPTOM RELIEF; Start 08/19/16 at 16:00; Stop 09/18/16 at 15:59 Non-Formulary Medication ( See Comment Field Below ) SEE COMMENTS SECTION 1T @10 XX ; Start 07/18/16 at 10:00; Stop 07/18/16 at 10:00; Status DC Non-Formulary Medication ( See Comment Field Below ) SEE LABEL COMMENTS DAILY XX ; Start 07/16/16 at 09:00; Stop 07/16/16 at 17:15; Status DC Non-Formulary Medication ( See Comment Field Below ) SEE LABEL COMMENTS SECTION 1T@20 XX ; Start 07/18/16 at 20:00; Stop 07/19/16 at 19:59; Status DC Olanzapine (ZyPREXA ZYDIS) 5 mg Q4HP PRN PO AGITATION; Start 07/05/16 at 14 :45; Stop 08/01/16 at 17:20; Status DC Oxcarbazepine (Trileptal) 150 mg BID PO Last administered on 07/08/16 09:03; Start 07/05/16 at 21:00; Stop 07/08/16 at 16:18; Status DC Oxcarbazepine (Trileptal) 300 mg BID PO Last administered on 08/25/16 08:51; Start 07/08/16 at 21:00; Stop 09/07/16 at 20:59 Risperidone (RisperDAL) 1 mg BID PO Last administered on 07/08/16t 09:03; Start 07/05/16 at 21:00; Stop 07/08/16 at 16:18; Status DC Trazodone HCl (Desyrel) 50 mg QHSP PRN PO INSOMNIA; Start 07/05/16 at 14:45; Stop 09/02/16 at 14:44 Tuberculin PPD (Aplisol, Ppd) 5 units 1T@20 ID ; Start 07/16/16 at 20:00; Stop at 20:01; Status DC Allergies Coded Allergies: Prednisone (Verified Allergy, Severe, TACHY/DIZZY, 09/12/12) Penicillins (Verified Allergy, Intermediate, RASH/HIVES, 09/12/12) Penicillins Cross Reactors (Verified Allergy, Intermediate, RASH/HIVES, 09/12/12) Quetiapine (Unverified Adverse Reaction, Intermediate, syncope, 07/27/16) Sertraline (Verified Adverse Reaction, Intermediate, AGITATION, 09/12/12) GME ATTESTATION My preceptor for this patient encounter was fully available. As needed, all aspects of the patient interview, examination, medical decision making process, and medical care plan development were reviewed and approved by the preceptor. Preceptor is aware and concurs with the plan as stated in the body of this note and will attest to such by his/her cosignature. PEDRO LUIS PUENTES DO Aug 25, 2016 17:26
[2016-08-25 18:00] VITALS: BP 106/62
[2016-08-26 06:19] VITALS: BP 109/63
[2016-08-26] MEDS: LEVOTHYROXINE 0.088 MG TAB (88 MCG) PO SCH (06:50)
[2016-08-26] MEDS: OXcarbazepine 150 MG TAB PO SCH ×2 (08:07→20:50)
[2016-08-26] MEDS: LURASIDONE HCL 40 MG TAB (LATUDA) PO SCH ×2 (08:07→17:39)
--- NOTE | 2016-08-26 18:29 | IPNPDOC ---
[facility] Progress Note Progress Note DATE OF SERVICE: 08/26/16 INTERVAL HISTORY: The patient is met with today. She describes that she is eager to go home. There is still some difficulty working to get prior approval for her antipsychotic. She describes that she is able to cope on the [place] and has been able to be social. Nursing staff at times that she is social and amenable. She hasn't been endorsing any bizarre paranoid ideation to the treatment team for quite some time. She describes that she is focusing on her future travel to [place]. She had no disruptive incidents overnight. VITAL SIGNS: See below. NEW TEST RESULTS: See below CURRENT MEDICATIONS: See below. MENTAL STATUS EXAMINATION: General: Well-dressed with good hygiene Speech: Spontaneous and fluid Thought processes: Linear and logical Thought content: Worry about discharge Abstract reasoning, and computation: Intact Description of associations: Intact Description of abnormal or psychotic thoughts:Denies any suicidal or homicidal ideation. Denies any auditory or visual hallucinations. Does not appear to be responding to internal stimuli. Does not appear to be endorsing any bizarre or paranoid ideation. Judgment: Good Insight: Good Orientation: Alert and oriented 3 Recent and remote memory: Intact Attention span and concentration: Intact Fund of knowledge: Adequate Mood: "Okay" Affect: Mildly anxious DIAGNOSES: 1. Unspecified bipolar disorder. 2. Unspecified delusional disorder. ASSESSMENT: A 36-year-old woman with a history of paranoia and psychosis who appears to have punctuated mood episodes. She is stabilized well on her antipsychotic and mood stabilizer. She is approaching discharge and currently is doing well. MANAGEMENT PLAN: Medications: Continue Latuda 80 mg twice a day and Trileptal 300 mg twice a day Psychotherapy: Group and milieu psychotherapy Social: Grandparents will meet patient for transfer down [facility] [place] [facility] getting [facility]'s done for Latuda and they have patient' s medications ready for discharge on Wednesday Disposition: The patient will require further inpatient time in order to arrange a safe and effective discharge TIME SPENT: 20 minutes. Vital Signs Vital Signs Date Time Temp Pulse Resp B/P Pulse Ox O2 Delivery O2 Flow Rate FiO2 08/26/16 06:19 98.6 77 18 109/63 Current Medications Current Medications Acetaminophen (Tylenol Tab) 650 mg Q6HP PRN PO HEADACHE or DISCOMFORT Last administered on 08/20/16 09:41; Start 07/05/16 at 14:45; Stop 09/02/16 at 14:44 Al Hydrox/Mg Hydrox/Simethicone (Mylanta) 30 ml Q4HP PRN PO HEARTBURN/ INDIGESTION Last administered on 08/15/16 19:12; Start 07/05/16 at 14:45; Stop 09/02/16 at 14:44 Haloperidol (Haldol) 5 mg BIDP PRN IM AGITATION; Start 08/01/16 at 17:30; Stop 08/03/16 at 15:19; Status DC Levothyroxine Sodium (Synthroid) 0.088 mg DAILY@06 PO Last administered on 08/26 06:50; Start 07/06/16 at 06:00; Stop 09/03/16 at 05:59 Lorazepam (Ativan) 1 mg Q6HP PRN PO ANXIETY/AGITATION Last administered on 12:00; Start 07/05/16 at 14:45; Stop 08/21/16 at 14:44; Status DC Lorazepam (Ativan) 1 mg Q6HP PRN PO ANXIETY/AGITATION; Start 08/21/16 at 17:15 ; Stop 08/28/16 at 17:14 Lurasidone HCl (Latuda (Lurasidone)) 60 mg BID PO Last administered on 07:51; Start 07/09/16 at 21:00; Stop 07/16/16 at 09:07; Status DC Lurasidone HCl (Latuda (Lurasidone)) 60 mg QHS PO Last administered on 21:45; Start 07/08/16 at 21:00; Stop 07/09/16 at 15:18; Status DC Lurasidone HCl (Latuda) 80 mg BID PO Last administered on 08/18/16 08:31; Start 07/16/16 at 21:00; Stop 08/18/16 at 08:41; Status DC Lurasidone HCl (Latuda) 80 mg BID@,18 PO Last administered on 08/26/16 17:39 ; Start 08/18/16 at 18:00; Stop 09/17/16 at 17:59 Magnesium Hydroxide (Milk Of Magnesia) 30 ml DAILYPRN PRN PO CONSTIPATION Last administered on 07/07/16 08:14; Start 07/05/16 at 14:45; Stop 09/02/16 at 14:44 Miconazole Nitrate (Monistat-7) 1 APPLICATORFUL QHS PV Last administered on 07/15 21:24; Start 07/15/16 at 21:00; Stop 07/22/16 at 17:04; Status DC Mineral Oil/White Petrolatum (Eucerin) PRN for scalp dryn... DAILYPRN PRN TOP SYMPTOM RELIEF; Start 08/19/16 at 16:00; Stop 09/18/16 at 15:59 Non-Formulary Medication ( See Comment Field Below ) SEE COMMENTS SECTION 1T @10 XX ; Start 07/18/16 at 10:00; Stop 07/18/16 at 10:00; Status DC Non-Formulary Medication ( See Comment Field Below ) SEE LABEL COMMENTS DAILY XX ; Start 07/16/16 at 09:00; Stop 07/16/16 at 17:15; Status DC Non-Formulary Medication ( See Comment Field Below ) SEE LABEL COMMENTS SECTION 1T@20 XX ; Start 07/18/16 at 20:00; Stop 07/19/16 at 19:59; Status DC Olanzapine (ZyPREXA ZYDIS) 5 mg Q4HP PRN PO AGITATION; Start 07/05/16 at 14 :45; Stop 08/01/16 at 17:20; Status DC Oxcarbazepine (Trileptal) 150 mg BID PO Last administered on 07/08/16 09:03; Start 07/05/16 at 21:00; Stop 07/08/16 at 16:18; Status DC Oxcarbazepine (Trileptal) 300 mg BID PO Last administered on 08/26/16 08:07; Start 07/08/16 at 21:00; Stop 09/07/16 at 20:59 Risperidone (RisperDAL) 1 mg BID PO Last administered on 07/08/16 09:03; Start 07/05/16 at 21:00; Stop 07/08/16 at 16:18; Status DC Trazodone HCl (Desyrel) 50 mg QHSP PRN PO INSOMNIA; Start 07/05/16 at 14:45; Stop 09/02/16 at 14:44 Tuberculin PPD (Aplisol, Ppd) 5 units 1T@20 ID ; Start 07/16/16 at 20:00; Stop at 20:01; Status DC Allergies Coded Allergies: Prednisone (Verified Allergy, Severe, TACHY/DIZZY, 09/12/12) Penicillins (Verified Allergy, Intermediate, RASH/HIVES, 09/12/12) Penicillins Cross Reactors (Verified Allergy, Intermediate, RASH/HIVES, 09/12/12) Quetiapine (Unverified Adverse Reaction, Intermediate, syncope, 07/27/16) Sertraline (Verified Adverse Reaction, Intermediate, AGITATION, 09/12/12) GME ATTESTATION My preceptor for this patient encounter was fully available. As needed, all aspects of the patient interview, examination, medical decision making process, and medical care plan development were reviewed and approved by the preceptor. Preceptor is aware and concurs with the plan as stated in the body of this note and will attest to such by his/her cosignature. PEDRO LUIS PUENTES DO Aug 26, 2016 18:29
[2016-08-26 18:37] VITALS: BP 112/65
[2016-08-27] MEDS: LEVOTHYROXINE 0.088 MG TAB (88 MCG) PO SCH (06:29)
[2016-08-27 06:44] VITALS: BP 164/58
[2016-08-27] MEDS: LURASIDONE HCL 40 MG TAB (LATUDA) PO SCH ×2 (07:46→17:55)
[2016-08-27] MEDS: OXcarbazepine 150 MG TAB PO SCH ×2 (07:46→21:29)
--- NOTE | 2016-08-27 17:43 | DS.PDOC ---
[facility] Discharge Summary Discharge Summary DATE OF ADMISSION: Jul 05, 2016 at 12:00 DATE OF DISCHARGE: 08/28/2016 DISCHARGE DIAGNOSES: 1. Unspecified bipolar disorder. 2. Unspecified delusional disorder. REASON FOR ADMISSION: The patient was admitted due to paranoia and distortion as well as bizarre behavior related to her conflict with her . She was noted to presented after accusing her of doing "bad things" to her children. She is been noted to call the police up to 100 times in a day. CONSULTANTS INVOLVED: Mental hygiene legal services TREATMENT AND PROGRESS ON THE UNIT : Legal status on admission: 9.39 Medication Management: The patient was resumed on home Trileptal 300 mg twice a day. She was attempted to be tried on Latuda, however she refused and did not appear to improve. After a treatment over objection hearing she was subsequent started on Latuda and titrated up to 80 mg twice a day which appears sufficient for resolution of her symptoms. Psychotherapy: The patient participating groups frequently Behavior: At first the patient's behavior appeared bizarre and paranoid. However , after the start of Latuda and in combination with the Trileptal she appeared to become more amenable, friendly and rational. She did have episodes of agitation early in her hospitalization. However, towards the end of her admission she had no episodes of agitation or paranoia noted. Discharge planning: The patient eventually after being stabilized on the medications was determined to be stable enough to be sent to the care of her grandparents in [place]. She originally was slated to go to [facility] however, due to her improvement on Latuda and Trileptal she became ineligible and [facility] refused the transfer due to her improved clinical status. She was slated to be discharged at 6 AM on 08/28/2016 to the care of her grandparents whom would drive her to [place] where she will stay. Her medications were prescribed and obtained, both 1 month supplies so that she would have them available as she went to spend time with her family in [place]. DISCHARGE ASSESSMENT: 28-year-old woman with a history of paranoia and psychosis whom presented in a paranoid state after accusing her of various well towards her children. She required a lengthy hospitalization that included a treatment over objection but ultimately after the start of a moderately powerful antipsychotic and Trileptal she improved long enough to not need any further inpatient treatment MENTAL STATUS EXAMINATION ON DISCHARGE: General: Well dressed with good hygiene Speech: Spontaneous and fluid Thought processes: Linear and logical Thought content: Worried about discharge Abstract reasoning, and computation: Intact Description of associations: Intact Description of abnormal or psychotic thoughts:Denies any suicidal or homicidal ideation. Denies any auditory or visual hallucinations. Does not appear to be responding to internal stimuli. Does not appear to be endorsing any bizarre or paranoid ideation. Judgment: Good Insight: Good Orientation: Alert and orientated 3 Recent and remote memory: Intact Attention span and concentration: Intact Fund of knowledge: Adequate Mood: "Excited" Affect: Euthymic with a full range PLAN/FOLLOWUP ARRANGEMENTS: The patient was given supplies of her medications to last for 30 days. She will be discharged tomorrow morning 08/28/2016 at 6 AM. The arrangements have been made so that she will leave [place] to the care of her grandparents. She has follow-up arranged in [place] and in her various destinations. The amount of time spent in the coordination of care for this patient was approximately 30 minutes. Vital Signs Vital Sign - Last 24 Hours 08/26/16 08/27/16 18:37 06:44 Temp 98.8 98.1 Pulse 73 64 Resp 18 18 B/P 112/65 164/58 Medications Scheduled Levothyroxine Sodium (Synthroid) 88 Mcg Tab #30 0.088 MG PO DAILY@06 supplement Lurasidone Hydrochloride (Latuda) 80 Mg Tab #60 80 MG PO BID MOOD Oxcarbazepine (Oxcarbazepine) 150 Mg Tab #120 300 MG PO BID MOOD Scheduled PRN Eucerin (Eucerin) 1 Cre Cre 0 TOP DAILYPRN PRN PRN scalp dryness and irritation (Reported) Allergies Coded Allergies: Prednisone (Verified Allergy, Severe, TACHY/DIZZY, 09/12/12) Penicillins (Verified Allergy, Intermediate, RASH/HIVES, 09/12/12) Penicillins Cross Reactors (Verified Allergy, Intermediate, RASH/HIVES, 09/12/12) Quetiapine (Unverified Adverse Reaction, Intermediate, syncope, 07/27/16) Sertraline (Verified Adverse Reaction, Intermediate, AGITATION, 09/12/12) GME ATTESTATION My preceptor for this patient encounter was fully available. As needed, all aspects of the patient interview, examination, medical decision making process, and medical care plan development were reviewed and approved by the preceptor. Preceptor is aware and concurs with the plan as stated in the body of this note and will attest to such by his/her cosignature. Current Medications Discharge medications Latuda 80 mg twice a day Trileptal 3 mg twice a day PEDRO LUIS PUENTES DO Aug 27, 2016 17:43
[2016-08-27 18:00] VITALS: BP 123/58
[2016-08-28] MEDS ORDERED: EUCECRE3 TOP (02:49)
[2016-08-28] MEDS: LEVOTHYROXINE 0.088 MG TAB (88 MCG) PO SCH ×2 (04:42→06:15)
[2016-08-28] MEDS: LURASIDONE HCL 40 MG TAB (LATUDA) PO SCH (04:43)
[2016-08-28] MEDS: OXcarbazepine 150 MG TAB PO SCH (04:43)
[2016-08-28 06:27] VITALS: BP 113/61
== END 2016-08-28 06:35 | disposition home or self-care (01) | DRG 885 ==
LOC: M PSY 12:00
PROVIDERS: ADMIT Psychiatry & Neurology Psychiatry; ATTEND Internal Medicine Addiction Medicine
DX: F22 Delusional disorders (principal); E03.9 Hypothyroidism, unspecified; Z79.899 Other long term (current) drug therapy; Z88.0 Allergy status to penicillin; Z88.8 Allergy status to other drugs, medicaments and biological substances; Z81.8 Family history of other mental and behavioral disorders